=== PATIENT | male | born 1965 | race Caucasian/White ===

== ENCOUNTER 2017-03-10 16:54 | Emergency (ER) | payer OTHER ==
[2017-03-10 17:15] VITALS: BP 129/85; PULSE 97; TEMP 98.5; BMI 22.1
--- NOTE | 2017-03-10 17:15 | PDOC ---
History of Present Illness - General Chief Complaint: Alcohol intoxication Stated Complaint: INTOX Time Seen by Provider: 03/10/17 17:09 History Source: Patient Exam Limitations: No Limitations - History of Present Illness Initial Comments: CHIEF COMPLAINT: 51 y/o afebrile male here for detox. HISTORY OF PRESENT ILLNESS: The patient admits he has been drinking alcohol every day for the past 38 years. He has drank 60oz of beer and 1/2 pint of vodka today. He has been through detox in the past and relapsed. He has no complaints today except he is hungry and would like to go to detox. Vital signs on arrival are notable for pulse of 97. REVIEW OF SYSTEMS: GENERAL/CONSTITUTIONAL: No fever/chills. No weakness. No weight change. HEAD, EYES, EARS, NOSE AND THROAT: No change in vision. No ear pain or discharge. No sore throat. CARDIOVASCULAR: No chest pain or shortness of breath. RESPIRATORY: No cough, wheezing, or hemoptysis. GASTROINTESTINAL: No abd pain, nausea, vomiting, diarrhea. GENITOURINARY: No dysuria, frequency, or change in urination. MUSCULOSKELETAL: No joint or muscle swelling or pain. No neck or back pain. SKIN: No rash or easy bruising. NEUROLOGIC: No headache, vertigo, loss of consciousness, or loss of sensation. PHYSICAL EXAM: GENERAL: The patient is awake, alert, and fully oriented, in no acute distress. He is in NAD and ambulatory. He smells of alcohol. HEAD: Normal with no signs of trauma. ENT: Pupils equal, round and reactive to light, extraocular movements intact, sclera anicteric, conjunctiva clear. Neck supple. LUNGS: Clear to auscultation bilaterally. Normal excursion. No respiratory distress or use of accessory muscles. CV: RRR, S1/S2, no MRG. Cap refill < 2 sec. ABDOMEN: Soft, non-distended, non-tender even to deep palpation, no hepatomegaly or splenomegaly, no masses. EXTREMITIES: Normal range of motion, no edema. NEUROLOGICAL: Normal speech, normal gait. CN II-XII grossly intact. PSYCH: Normal mood, normal affect. SKIN: Warm, dry, normal turgor, no rashes or lesions noted. Past History - Past Medical History Allergies/Adverse Reactions: Allergies Allergy/AdvReac Type Severity Reaction Status Date / Time No Known Allergies Allergy Verified 03/10/17 17:06 Other medical history: etoh daily "as much as I can get" - Psycho/Social/Smoking Cessation Hx Anxiety: No Suicidal Ideation: No Smoking History: Unknown if ever smoked Have you smoked in the past 12 months: No Information on smoking cessation initiated: No Hx Alcohol Use: No Drug/Substance Use Hx: No Substance Use Type: None *Physical Exam - Vital Signs Last Vital Signs Temp Pulse Resp BP Pulse Ox 98.5 F 97 H 18 129/85 100 03/10/17 16:55 03/10/17 16:55 03/10/17 16:55 03/10/17 16:55 03/10/17 16:55 Medical Decision Making - Medical Decision Making A/P: 51 y/o intoxicated male here for detox. The patient has no complaints. Explained to him that [facility] is no longer taking patients. provided him with a food tray and the list of places in the area that are offering detox. Instructed him to return to the ER with any concerning symptoms. The patient verbalizes understanding of all instructions, has no further questions and is awaiting discharge. *DC/Admit/Observation/Transfer Diagnosis at time of Disposition: Alcohol abuse Alcohol intoxication Qualifiers: Complication of substance-induced condition: uncomplicated Qualified Code(s): F10.920 - Alcohol use, unspecified with intoxication, uncomplicated - Discharge Dispostion Disposition: HOME Condition at time of disposition: Good - Patient Instructions Printed Discharge Instructions: DI for Alcohol Abuse Additional Instructions: Discharge Instructions: -A list of detox facilities have been included in your discharge paperwork. -Please return to the ER if you develop any concerning symptoms
== END 2017-03-10 17:45 | disposition home or self-care (01) ==
LOC: JER 16:54
DX: F10.920 Alcohol use, unspecified with intoxication, uncomplicated (principal)
CPT/HCPCS: 99282-25

== ENCOUNTER 2017-04-22 14:07 | Inpatient (IN) | payer OTHER ==
[2017-04-22 16:00] VITALS: BMI 22.8
--- NOTE | 2017-04-22 17:36 | HP ---
CIWA Score - CIWA Score Nausea/Vomitin-Mild Nausea/No Vomiting Muscle Tremors: 4-Moderate,w/Arms Extend Anxiety: 3 Agitation: 3 Paroxysmal Sweats: 1-Minimal Palms Moist Orientation: 2-Disoriented Date<2 days Tacttile Disturbances: 0-None Auditory Disturbances: 0-None Visual Disturbances: 0-None Headache: 0-None Present CIWA-Ar Total Score: 14 Admission ROS BHS - HPI Chief Complaint: withdrawal sx Allergies/Adverse Reactions: Allergies Allergy/AdvReac Type Severity Reaction Status Date / Time No Known Allergies Allergy Verified 04/22/17 17:35 History of Present Illness: 51 years old male with long history of alcohol nicotine dependence, denies medical issue has depression is admitted to detox Exam Limitations: No Limitations - Ebola screening Have you traveled outside of the country in the last 21 days: No Have you had contact with anyone from an Ebola affected area: No Have you been sick,other than usual withdrawal symptoms: No Do you have a fever: No - Review of Systems Constitutional: Changes in sleep, Weight Stable EENT: reports: Dental Problems (multiple teeth missing), Other (glaucoma both eyes x 10 years, no treatment) Respiratory: reports: No Symptoms reported Cardiac: reports: No Symptoms Reported GI: reports: Nausea, Poor Fluid Intake, Abdominal cramping : reports: No Symptoms Reported Musculoskeletal: reports: No Symptoms Reported Integumentary: reports: No Symptoms Reported Neuro: reports: Seizure (last episode 2011 no treatment), Tremors Endocrine: reports: No Symptoms Reported Hematology: reports: No Symptoms Reported Psychiatric: reports: Judgement Intact, Depressed Other Systems: Reviewed and Negative Patient History - Patient Medical History Hx Anemia: No Hx Asthma: No Hx Chronic Obstructive Pulmonary Disease (COPD): No Hx Cancer: No Hx Cardiac Disorders: No Hx Congestive Heart Failure: No Hx Hypertension: No Hx Hypercholesterolemia: No Hx Pacemaker: No HX Cerebrovascular Accident: No Hx Seizures: Yes (alcohol withdrawal related) Hx Dementia: No Hx Diabetes: No Hx Gastrointestinal Disorders: No Hx Liver Disease: No Hx Genitourinary Disorders: No Hx Sexually Transmitted Disorders: No Hx Renal Disease (ESRD): No Hx Thyroid Disease: No Hx Human Immunodeficiency Virus (HIV): No Hx Hepatitis C: No Hx Depression: Yes Hx Suicide Attempt: No Hx Bipolar Disorder: No Hx Schizophrenia: No - Patient Surgical History Past Surgical History: Yes Hx Neurologic Surgery: No Hx Cataract Extraction: No Hx Cardiac Surgery: No Hx Lung Surgery: No Hx Breast Surgery: No Hx Breast Biopsy: No Hx Abdominal Surgery: No Hx Appendectomy: Yes (age 14) Hx Cholecystectomy: No Hx Genitourinary Surgery: No Hx Orthopedic Surgery: No Anesthesia Reaction: No - PPD History Previous Implant?: Yes Documented Results: Negative w/o proof Implanted On Prior R Admission?: No PPD to be Administered?: Yes - Smoking Cessation Smoking history: Current every day smoker Have you smoked in the past 12 months: Yes Aproximately how many cigarettes per day: 3 Cigars Per Day: 0 Hx Chewing Tobacco Use: No Initiated information on smoking cessation: Yes 'Breaking Loose' booklet given: 04/22/17 - Substance & Tx. History Hx Alcohol Use: Yes Hx Substance Use: No Substance Use Type: Alcohol Hx Substance Use Treatment: Yes (02/2017 [facility]) - Substances Abused Alcohol Amount used: ariadna jaquez Age of first use: 13 Date of Last Use: 04/22/17 Family Disease History - Family Disease History Family History: Unremarkable Admission Physical Exam [facility] - Vital Signs Vital Signs: Vital Signs - 24 hr 04/22/17 15:58 Temperature 97 F L Pulse Rate 101 H Respiratory 20 Rate Blood Pressure 135/81 - Physical General Appearance: Yes: Appropriately Dressed, Mild Distress, Alcohol on Breath , Tremorous, Irritable, Sweating, Anxious HEENTM: Yes: Hearing grossly Normal, Normal ENT Inspection, Normocephalic, Normal Voice, Other (glaucoma both eyes x 10 years no treatment) Respiratory: Yes: Chest Non-Tender, Lungs Clear, Normal Breath Sounds, No Respiratory Distress, No Accessory Muscle Use Neck: Yes: Supple, Trachea in good position Breast: Yes: Breasts Symetrical Cardiology: Yes: Regular Rhythm, S1, S2, Tachycardia Abdominal: Yes: Non Tender, Soft Genitourinary: Yes: Within Normal Limits Back: Yes: Normal Inspection Musculoskeletal: Yes: full range of Motion, Gait Steady Extremities: Yes: Normal Range of Motion, Non-Tender, Tremors Neurological: Yes: Alert, Motor Strength 5/5, Normal Response, Depressed Affect Integumentary: Yes: Warm Lymphatic: Yes: Within Normal Limits - Diagnostic (1) Alcohol dependence with uncomplicated withdrawal Current Visit: Yes Status: Acute (2) Glaucoma Current Visit: Yes Status: Chronic Qualifiers: Glaucoma type: unspecified Laterality: bilateral Qualified Code( s): H40.9 - Unspecified glaucoma (3) Depression (emotion) Current Visit: Yes Status: Suspected Qualifiers: Depression Type: dysthymia Qualified Code(s): F34.1 - Dysthymic disorder (4) Nicotine dependence Current Visit: Yes Status: Acute Qualifiers: Nicotine product type: cigarettes Substance use status: in withdrawal Qualified Code(s): F17.213 - Nicotine dependence, cigarettes, with withdrawal Cleared for Admission [facility] - Detox or Rehab [facility] Level of Care: Medically Managed Detox Regimen/Protocol: Librium [facility] Breath Alcohol Content Breath Alcohol Content: 0.202 Urine Drug Screen - Results Drug Screen Negative: Yes
[2017-04-22] MEDS ORDERED: MAG HYDROX/AL HYDROX/SIMETH 30 ML UNIT-DOSE CUP PO PRN (17:45)
[2017-04-22] MEDS ORDERED: NICOTINE POLACRILEX 2 MG GUM BC PRN (17:45)
[2017-04-22] MEDS ORDERED: LOPERAMIDE HCL 2 MG CAPSULE PO PRN (17:45)
[2017-04-22] MEDS ORDERED: MENTHOL/PHENOL 1 EACH UD MM PRN (17:45)
[2017-04-22] MEDS ORDERED: guaiFENesin/D-METHORPHAN HB 10 ML UNIT-DOSE CUPS PO PRN (17:45)
[2017-04-22] MEDS ORDERED: MAGNESIUM HYDROX 2400MG/30ML ORAL SUSPENSION 30 ML CUP PO PRN (17:45)
[2017-04-22] MEDS ORDERED: ACETAMINOPHEN 325 MG TABLET (FP) PO PRN (17:45)
[2017-04-22] MEDS ORDERED: P-EPHED 60MG/TRIPROLIDI 2.5MG TABLET PO PRN (17:45)
[2017-04-22] MEDS ORDERED: chlordiazePOXIDE HCL 25 MG CAPSULE PO PRN (17:45)
[2017-04-22] MEDS ORDERED: hydrOXYzine PAMOATE 50 MG CAPSULE (FP) PO PRN (17:45)
[2017-04-22] MEDS ORDERED: IBUPROFEN 400 MG TABLET (FP) PO PRN (17:45)
[2017-04-22] MEDS ORDERED: MAGNESIUM CITRATE 300 ML BOTTLE PO PRN (17:45)
[2017-04-22] MEDS: chlordiazePOXIDE HCL 25 MG CAPSULE PO SCH (22:38)
[2017-04-22] MEDS: THIAMINE HCL 100 MG TABLET (FP) PO SCH (22:39)
[2017-04-23 00:07] LABS: URINE APPEARANCE CLEAR; URINE BILIRUBIN NEGATIVE (NEGATIVE); URINE BLOOD NEGATIVE (NEGATIVE); URINE COLOR STRAW; URINE GLUCOSE (UA) NEGATIVE (NEGATIVE); URINE KETONE NEGATIVE (NEGATIVE); URINE LEUK ESTERASE NEGATIVE (NEGATIVE); URINE NITRITE NEGATIVE (NEGATIVE); URINE PROTEIN NEGATIVE (NEGATIVE); URINE UROBILINOGEN NEGATIVE mg/dL (0.2-1.0)
[2017-04-23] MEDS: chlordiazePOXIDE HCL 25 MG CAPSULE PO SCH ×4 (06:27→22:30)
[2017-04-23 10:24] LABS: MCH 31.3 pg (25.7-33.7); MCHC 32.8 g/dl (32.0-35.9); MEAN CELL VOLUME 95.5 fl (80-96); MEAN PLT VOLUME 8.6 fl (7.5-11.1); PLATELET COUNT 117 K/MM3 (134-434); RDW 14.5 % (11.9-15.9); WHITE BLOOD COUNT 4.8 K/mm3 (4.0-10.0)
--- NOTE | 2017-04-23 10:31 | EKG ---
Test Reason : Blood Pressure : / mmHG Vent. Rate : 090 BPM Atrial Rate : 090 BPM P-R Int : 158 ms QRS Dur : 102 ms QT Int : 370 ms P-R-T Axes : 060 003 054 degrees QTc Int : 452 ms NORMAL SINUS RHYTHM POSSIBLE LEFT ATRIAL ENLARGEMENT INCOMPLETE RIGHT BUNDLE BRANCH BLOCK LEFT VENTRICULAR HYPERTROPHY CANNOT RULE OUT SEPTAL INFARCT , AGE UNDETERMINED ABNORMAL ECG NO PREVIOUS ECGS AVAILABLE Confirmed by JOHN PAUL TAVERAS, MARILEE ([id number]) on 04/23/2017 10:31:12 AM Referred By: Darius Gonzales Confirmed By:MARILEE COKER MD
[2017-04-23 10:37] LABS: ALBUMIN 3.7 g/dl (3.4-5.0); ALK PHOS 68 U/L (45-117); ANION GAP 7 (8-16); BILIRUBIN,TOTAL 0.6 mg/dL (0.2-1.0); CALCIUM 8.5 mg/dL (8.5-10.1); CO2 31 mmol/L (21-32); CREATININE 0.6 mg/dL (0.7-1.3); GLUCOSE,RANDOM 89 mg/dL (74-106); SGOT/AST 96 U/L (15-37); SGPT/ALT 82 U/L (12-78); TOT PROT 7.1 g/dl (6.4-8.2)
[2017-04-23] MEDS: PRENATAL VITAMINS W/ FOLIC ACID TABLET (FP) PO SCH (10:42)
[2017-04-23] MEDS: NICOTINE 14 MG/24 HOURS TOPICAL PATCH TD SCH (10:43)
[2017-04-23] MEDS ORDERED: ONDANSETRON *ODT* 4 MG TABLET SL PRN (10:47)
--- NOTE | 2017-04-23 12:07 | PN ---
[facility] CIWA - CIWA Score Nausea/Vomitin (N/V/D) Muscle Tremors: 5 Anxiety: 4-Mod. Anxious/Guarded Agitation: 3 Paroxysmal Sweats: 2 Orientation: 0-Oriented Tacttile Disturbances: 3-Moderate Itch/Numb/Burn Auditory Disturbances: 0-None Visual Disturbances: 0-None Headache: 0-None Present CIWA-Ar Total Score: 22 BHS Progress Note (SOAP) Subjective: ANXIETY, SEVERE TREMORS, UNSTEADY GAIT, DIAPHORESIS, NAUSEA, VOMITING,DIARRHEA, INTERMITTENT SLEEP. Objective: 04/23/17 12:06 Vital Signs Temperature 97.1 F L 04/23/17 06:22 Pulse Rate 76 04/23/17 06:22 Respiratory Rate 16 04/23/17 06:22 Blood Pressure 123/80 04/23/17 06:22 O2 Sat by Pulse Oximetry (%) Laboratory Last Values WBC 4.8 K/mm3 (4.0-10.0) 04/23/17 07:00 RBC 4.41 M/mm3 (4.00-5.60) 04/23/17 07:00 Hgb 13.8 GM/dL (11.7-16.9) 04/23/17 07:00 Hct 42.1 % (35.4-49) 04/23/17 07:00 MCV 95.5 fl (80-96) 04/23/17 07:00 MCH 31.3 pg (25.7-33.7) 04/23/17 07:00 MCHC 32.8 g/dl (32.0-35.9) 04/23/17 07:00 RDW 14.5 % (11.9-15.9) 04/23/17 07:00 Plt Count 117 K/MM3 (134-434) L 04/23/17 07:00 MPV 8.6 fl (7.5-11.1) 04/23/17 07:00 Sodium 145 mmol/L (136-145) 04/23/17 07:00 Potassium 3.9 mmol/L (3.5-5.1) 04/23/17 07:00 Chloride 107 mmol/L (98-107) 04/23/17 07:00 Carbon Dioxide 31 mmol/L (21-32) 04/23/17 07:00 Anion Gap 7 (8-16) L 04/23/17 07:00 BUN 9 mg/dL (7-18) 04/23/17 07:00 Creatinine 0.6 mg/dL (0.7-1.3) L 04/23/17 07:00 Creat Clearance w eGFR > 60 (>60) 04/23/17 07:00 Random Glucose 89 mg/dL (74-106) 04/23/17 07:00 Calcium 8.5 mg/dL (8.5-10.1) 04/23/17 07:00 Total Bilirubin 0.6 mg/dL (0.2-1.0) 04/23/17 07:00 AST 96 U/L (15-37) H 04/23/17 07:00 ALT 82 U/L (12-78) H 04/23/17 07:00 Alkaline Phosphatase 68 U/L (45-117) 04/23/17 07:00 Total Protein 7.1 g/dl (6.4-8.2) 04/23/17 07:00 Albumin 3.7 g/dl (3.4-5.0) 04/23/17 07:00 Urine Color Straw 04/22/17 23:56 Urine Appearance Clear 04/22/17 23:56 Urine pH 5.0 (5.0-8.0) 04/22/17 23:56 Urine Protein Negative (NEGATIVE) 04/22/17 23:56 Urine Glucose (UA) Negative (NEGATIVE) 04/22/17 23:56 Urine Ketones Negative (NEGATIVE) 04/22/17 23:56 Urine Blood Negative (NEGATIVE) 04/22/17 23:56 Urine Nitrite Negative (NEGATIVE) 04/22/17 23:56 Urine Bilirubin Negative (NEGATIVE) 04/22/17 23:56 Urine Urobilinogen Negative mg/dL (0.2-1.0) 04/22/17 23:56 Ur Leukocyte Esterase Negative (NEGATIVE) 04/22/17 23:56 Assessment: 04/23/17 12:06 WITHDRAWAL SX Plan: CONTINUE DETOX/MONITOR PATIENT ADDITIONAL LIBRIUM AT 2 PM TODAY ZOFRAN AND IMODIUM DIRECTED TIGAN INJ IF UNABLE TO TAKE PO ANTI-EMETIC. INCREASE PO FLUIDS TOLERATED.
[2017-04-23 13:36] LABS: HIV 1 & 2 AB NEGATIVE; HIV 1 AGp24 NEGATIVE
[2017-04-23] MEDS ORDERED: chlordiazePOXIDE HCL 25 MG CAPSULE PO ONE ×2 (14:00)
--- NOTE | 2017-04-23 19:07 | CONSULT ---
[facility] Psychiatric Consult - Data Date of interview: 04/23/17 Admission source: [facility] Identifying data: First admission to [facility] for this 51 y/o [place] male seeking detox treatment on for alcohol dependence.Patient is ,a father of two,domiciled and employed. Substance Abuse History: Discussed with patient in this interview.Mr Romeo confirms this report. Smoking Cessation. Smoking history: Current every day smoker. Have you smoked in the past 12 months: Yes. Aproximately how many cigarettes per day: 3. Cigars Per Day: 0. Hx Chewing Tobacco Use: No. Initiated information on smoking cessation: Yes. 'Breaking Loose' booklet given : 04/22/17. - Substance & Tx. History. Hx Alcohol Use: Yes. Hx Substance Use : No. Substance Use Type: Alcohol. Hx Substance Use Treatment: Yes (02/2017 [facility]). - Substances Abused. Alcohol. Amount used: quart volka. Age of first use: 13. Date of Last Use: 04/22/17 Medical History: Remarkable for hypertension,glaucoma and a history of withdrawal seizures. Psychiatric History: Patient denies. Physical/Sexual Abuse/Trauma History: Patient denies. Additional Comment: Drug Screen is negative. Mental Status Exam - Mental Status Exam Alert and Oriented to: Time, Place, Person Cognitive Function: Good Patient Appearance: Well Groomed Mood: Hopeful, Euthymic Affect: Appropriate, Normal Range Patient Behavior: Fatigued, Cooperative Speech Pattern: Clear Voice Loudness: Normal Thought Process: Intact, Goal Oriented Thought Disorder: Not Present Hallucinations: Denies Suicidal Ideation: Denies Homicidal Ideation: Denies Insight/Judgement: Poor Sleep: Well Appetite: Good Muscle strength/Tone: Normal Gait/Station: Normal Psychiatric Findings - Problem List ([place] 1, 2,3) (1) Alcohol dependence with uncomplicated withdrawal Current Visit: Yes Status: Acute (2) Nicotine dependence Current Visit: Yes Status: Acute Qualifiers: Nicotine product type: cigarettes Substance use status: in withdrawal Qualified Code(s): F17.213 - Nicotine dependence, cigarettes, with withdrawal (3) Glaucoma Current Visit: Yes Status: Chronic Qualifiers: Glaucoma type: unspecified Laterality: bilateral Qualified Code( s): H40.9 - Unspecified glaucoma - Initial Treatment Plan Initial Treatment Plan: Psychoeducation.Detoxification.Observation.
[2017-04-23] MEDS: diphenhydrAMINE HCL 50 MG CAPSULE PO PRN (22:30)
[2017-04-23] MEDS: THIAMINE HCL 100 MG TABLET (FP) PO SCH (22:30)
[2017-04-23] MEDS ORDERED: cloNIDine HCL 0.1 MG TABLET PO ONE (23:28)
[2017-04-24] MEDS: chlordiazePOXIDE HCL 25 MG CAPSULE PO SCH ×3 (05:37→17:51)
[2017-04-24] MEDS: PRENATAL VITAMINS W/ FOLIC ACID TABLET (FP) PO SCH (10:50)
[2017-04-24] MEDS: NICOTINE 14 MG/24 HOURS TOPICAL PATCH TD SCH (10:51)
--- NOTE | 2017-04-24 19:30 | PN ---
[facility] CIWA - CIWA Score Nausea/Vomitin Muscle Tremors: 4-Moderate,w/Arms Extend Anxiety: 3 Agitation: 0-Normal Activity Paroxysmal Sweats: No Perspiration Orientation: 0-Oriented Tacttile Disturbances: 2-Mild Itch/Numbness/Burn Auditory Disturbances: 0-None Visual Disturbances: 3-Moderate Sensitivity Headache: 0-None Present CIWA-Ar Total Score: 17 BHS Progress Note (SOAP) Subjective: Vomiting, Stomach Cramping, Tremors, Diarrhea, Interrupted Sleep. Objective: PT. A & O X 3, OBSERVED AMBULATING ON UNIT. NO ACUTE DISTRESS. PT. DENIES CHEST PAIN. 04/24/17 19:27 Vital Signs Temperature 98.6 F 04/24/17 18:49 Pulse Rate 71 04/24/17 18:49 Respiratory Rate 18 04/24/17 18:49 Blood Pressure 128/87 04/24/17 18:49 O2 Sat by Pulse Oximetry (%) Laboratory Tests 04/22/17 04/23/17 04/23/17 23:56 07:00 07:00 WBC 4.8 RBC 4.41 Hgb 13.8 Hct 42.1 MCV 95.5 MCH 31.3 MCHC 32.8 RDW 14.5 Plt Count 117 L MPV 8.6 Sodium 145 Potassium 3.9 Chloride 107 Carbon Dioxide 31 Anion Gap 7 L BUN 9 Creatinine 0.6 L Creat Clearance w eGFR > 60 Random Glucose 89 Calcium 8.5 Total Bilirubin 0.6 AST 96 H ALT 82 H Alkaline Phosphatase 68 Total Protein 7.1 Albumin 3.7 Urine Color Straw Urine Appearance Clear Urine pH 5.0 Ur Specific [place] <= 1.005 Urine Protein Negative Urine Glucose (UA) Negative Urine Ketones Negative Urine Blood Negative Urine Nitrite Negative Urine Bilirubin Negative Urine Urobilinogen Negative Ur Leukocyte Esterase Negative RPR Titer HIV 1&2 Antibody Screen HIV P24 Antigen 04/23/17 04/23/17 07:00 07:00 WBC RBC Hgb Hct MCV MCH MCHC RDW Plt Count MPV Sodium Potassium Chloride Carbon Dioxide Anion Gap BUN Creatinine Creat Clearance w eGFR Random Glucose Calcium Total Bilirubin AST ALT Alkaline Phosphatase Total Protein Albumin Urine Color Urine Appearance Urine pH Ur Specific [place] Urine Protein Urine Glucose (UA) Urine Ketones Urine Blood Urine Nitrite Urine Bilirubin Urine Urobilinogen Ur Leukocyte Esterase RPR Titer Nonreactive HIV 1&2 Antibody Screen Negative HIV P24 Antigen Negative LABS NOTED. Assessment: 04/24/17 19:27 WITHDRAWAL SYMPTOMS. Plan: CONTINUE DETOX. REPEAT AST ON 04/25/2017 FOR ELEVATED ADMISSION LEVEL.
[2017-04-24] MEDS: THIAMINE HCL 100 MG TABLET (FP) PO SCH (22:27)
[2017-04-24] MEDS: chlordiazePOXIDE 5 MG CAPSULE PO SCH (22:27)
[2017-04-25] MEDS: chlordiazePOXIDE 5 MG CAPSULE PO SCH ×3 (05:26→16:59)
[2017-04-25] MEDS: PRENATAL VITAMINS W/ FOLIC ACID TABLET (FP) PO SCH (10:31)
[2017-04-25] MEDS: NICOTINE 14 MG/24 HOURS TOPICAL PATCH TD SCH (10:32)
--- NOTE | 2017-04-25 15:21 | PN ---
S Progress Note (SOAP) Subjective: Tremor, diarrhea, chills, interrupted sleep, anxious Objective: 04/25/17 15:19 Last Vital Signs Temp Pulse Resp BP Pulse Ox 98.6 F 111 H 20 115/83 04/25/17 13:42 04/25/17 13:42 04/25/17 13:42 04/25/17 13:42 Laboratory Tests 04/22/17 04/23/17 04/23/17 23:56 07:00 07:00 WBC 4.8 RBC 4.41 Hgb 13.8 Hct 42.1 MCV 95.5 MCH 31.3 MCHC 32.8 RDW 14.5 Plt Count 117 L MPV 8.6 Sodium 145 Potassium 3.9 Chloride 107 Carbon Dioxide 31 Anion Gap 7 L BUN 9 Creatinine 0.6 L Creat Clearance w eGFR > 60 Random Glucose 89 Calcium 8.5 Total Bilirubin 0.6 AST 96 H ALT 82 H Alkaline Phosphatase 68 Total Protein 7.1 Albumin 3.7 Urine Color Straw Urine Appearance Clear Urine pH 5.0 Ur Specific [place] <= 1.005 Urine Protein Negative Urine Glucose (UA) Negative Urine Ketones Negative Urine Blood Negative Urine Nitrite Negative Urine Bilirubin Negative Urine Urobilinogen Negative Ur Leukocyte Esterase Negative RPR Titer HIV 1&2 Antibody Screen HIV P24 Antigen 04/23/17 04/23/17 04/25/17 07:00 07:00 07:45 WBC RBC Hgb Hct MCV MCH MCHC RDW Plt Count MPV Sodium Potassium Chloride Carbon Dioxide Anion Gap BUN Creatinine Creat Clearance w eGFR Random Glucose Calcium Total Bilirubin AST 252 H D ALT Alkaline Phosphatase Total Protein Albumin Urine Color Urine Appearance Urine pH Ur Specific [place] Urine Protein Urine Glucose (UA) Urine Ketones Urine Blood Urine Nitrite Urine Bilirubin Urine Urobilinogen Ur Leukocyte Esterase RPR Titer Nonreactive HIV 1&2 Antibody Screen Negative HIV P24 Antigen Negative Labs noted Assessment: 04/25/17 15:20 Withdrawal symptoms Plan: Continue detox
[2017-04-25] MEDS: THIAMINE HCL 100 MG TABLET (FP) PO SCH (22:23)
[2017-04-25] MEDS: chlordiazePOXIDE HCL 10 MG CAPSULE PO SCH (22:23)
[2017-04-25] MEDS: diphenhydrAMINE HCL 50 MG CAPSULE PO PRN (22:23)
[2017-04-26] MEDS: chlordiazePOXIDE HCL 10 MG CAPSULE PO SCH (05:38)
[2017-04-26 09:31] VITALS: BP 134/97; PULSE 99; TEMP 97.9
[2017-04-26] MEDS: NICOTINE 14 MG/24 HOURS TOPICAL PATCH TD SCH (10:14)
[2017-04-26] MEDS: PRENATAL VITAMINS W/ FOLIC ACID TABLET (FP) PO SCH (10:14)
--- NOTE | 2017-04-26 16:27 | DS ---
[facility] Detox Discharge Summary Admission Date: 04/22/17 Discharge Date: 04/26/17 - History Present History: Alcohol Dependence Additional Comments: PATIENT TO RETURN TO [facility] IN [place], [place] FOR AFTERCARE. PATIENT ADVISED TO FOLLOW-UP THERE FOR AFTERCARE PER DISCHARGE ARRANGEMENT. PATIENT WAS DISCHARGED FROM UNIT IN STABLE MEDICAL CONDITION. Pertinent Past History: History of Seizures (ETOH-Related), Glaucoma, Depression. - Physical Exam Results Vital Signs: Vital Signs Temperature 97.9 F 04/26/17 09:31 Pulse Rate 99 H 04/26/17 09:31 Respiratory Rate 04/26/17 09:31 Blood Pressure 134/97 04/26/17 09:31 O2 Sat by Pulse Oximetry (%) Pertinent Admission Physical Exam Findings: WITHDRAWAL SYMPTOMS. Laboratory Tests 04/22/17 04/23/17 04/23/17 23:56 07:00 07:00 WBC 4.8 RBC 4.41 Hgb 13.8 Hct 42.1 MCV 95.5 MCH 31.3 MCHC 32.8 RDW 14.5 Plt Count 117 L MPV 8.6 Sodium 145 Potassium 3.9 Chloride 107 Carbon Dioxide 31 Anion Gap 7 L BUN 9 Creatinine 0.6 L Creat Clearance w eGFR > 60 Random Glucose 89 Calcium 8.5 Total Bilirubin 0.6 AST 96 H ALT 82 H Alkaline Phosphatase 68 Total Protein 7.1 Albumin 3.7 Urine Color Straw Urine Appearance Clear Urine pH 5.0 Ur Specific [place] <= 1.005 Urine Protein Negative Urine Glucose (UA) Negative Urine Ketones Negative Urine Blood Negative Urine Nitrite Negative Urine Bilirubin Negative Urine Urobilinogen Negative Ur Leukocyte Esterase Negative RPR Titer HIV 1&2 Antibody Screen HIV P24 Antigen 04/23/17 04/23/17 04/25/17 07:00 07:00 07:45 WBC RBC Hgb Hct MCV MCH MCHC RDW Plt Count MPV Sodium Potassium Chloride Carbon Dioxide Anion Gap BUN Creatinine Creat Clearance w eGFR Random Glucose Calcium Total Bilirubin AST 252 H D ALT Alkaline Phosphatase Total Protein Albumin Urine Color Urine Appearance Urine pH Ur Specific [place] Urine Protein Urine Glucose (UA) Urine Ketones Urine Blood Urine Nitrite Urine Bilirubin Urine Urobilinogen Ur Leukocyte Esterase RPR Titer Nonreactive HIV 1&2 Antibody Screen Negative HIV P24 Antigen Negative LABS NOTED. - Treatment Hospital Course: Detox Protocol Followed, Detoxed Safely, Responded well, Discharged Condition Good Patient has Accepted a Rehab Referral to: PATIENT GOING TO [facility] ([place], [place]). - Medication Discharge Medications: Ambulatory Orders NK [No Known Home Medication] 03/10/17 - Diagnosis (1) Alcohol dependence with uncomplicated withdrawal Status: Acute (2) Nicotine dependence Status: Chronic Qualifiers: Nicotine product type: cigarettes Substance use status: in withdrawal Qualified Code(s): F17.213 - Nicotine dependence, cigarettes, with withdrawal (3) Glaucoma Status: Chronic Qualifiers: Glaucoma type: unspecified Laterality: bilateral Qualified Code( s): H40.9 - Unspecified glaucoma (4) Depression (emotion) Status: Suspected Qualifiers: Depression Type: dysthymia Qualified Code(s): F34.1 - Dysthymic disorder - AMA Did Patient Leave Against Medical Advice: No
== END 2017-04-26 10:49 | disposition home or self-care (01) | DRG 775 ==
LOC: YASAS 14:07 → Y3N 17:54
PROVIDERS: ADMIT Internal Medicine; ATTEND Internal Medicine
PROC: HZ2ZZZZ Detoxification Services for Substance Abuse Treatment (ICD-10-PCS; principal; 2017-04-22)
DX: F10.230 Alcohol dependence with withdrawal, uncomplicated (principal); F10.220 Alcohol dependence with intoxication, uncomplicated; F17.213 Nicotine dependence, cigarettes, with withdrawal; F34.1 Dysthymic disorder; H40.9 Unspecified glaucoma; R00.0 Tachycardia, unspecified; Z86.69 Personal history of other diseases of the nervous system and sense organs
CPT/HCPCS: 36415; 80053; 81003; 84450; 85027; 86593; 87389; 93005; 93010

== ENCOUNTER 2017-08-04 20:45 | Inpatient (IN) | payer OTHER ==
[2017-08-04 21:57] VITALS: BMI 23.3
--- NOTE | 2017-08-04 22:24 | HP ---
CIWA Score - CIWA Score Nausea/Vomitin-Mild Nausea/No Vomiting Muscle Tremors: 4-Moderate,w/Arms Extend Anxiety: 4-Mod. Anxious/Guarded Agitation: 4-Moderately Restless Paroxysmal Sweats: 1-Minimal Palms Moist Orientation: 1-Uncertain about Date Tacttile Disturbances: 0-None Auditory Disturbances: 0-None Visual Disturbances: 0-None Headache: 0-None Present CIWA-Ar Total Score: 15 Admission ROS BHS - HPI Chief Complaint: withdrawal sx Allergies/Adverse Reactions: Allergies Allergy/AdvReac Type Severity Reaction Status Date / Time No Known Allergies Allergy Verified 07/10/17 18:26 History of Present Illness: 51 years old male with long history of alcohol nicotine dependence, has alcohol withdrawal related seizure, last episode unknown is admitted to detox Exam Limitations: No Limitations - Ebola screening Have you traveled outside of the country in the last 21 days: No Have you had contact with anyone from an Ebola affected area: No Have you been sick,other than usual withdrawal symptoms: No Do you have a fever: No - Review of Systems Constitutional: Chills, Weight Stable EENT: reports: Blurred Vision (eye glasses) Respiratory: reports: Cough Cardiac: reports: No Symptoms Reported GI: reports: Nausea, Poor Fluid Intake, Abdominal cramping : reports: No Symptoms Reported Musculoskeletal: reports: No Symptoms Reported Integumentary: reports: No Symptoms Reported Neuro: reports: Seizure (2011), Tremors Endocrine: reports: No Symptoms Reported Hematology: reports: No Symptoms Reported Psychiatric: reports: Judgement Intact, Mood/Affect Appropiate, Orientated x3 Other Systems: Reviewed and Negative Patient History - Patient Medical History Hx Anemia: No Hx Asthma: No Hx Chronic Obstructive Pulmonary Disease (COPD): No Hx Cancer: No Hx Cardiac Disorders: No Hx Congestive Heart Failure: No Hx Hypertension: No Hx Hypercholesterolemia: No Hx Pacemaker: No HX Cerebrovascular Accident: No Hx Seizures: Yes Hx Dementia: No Hx Diabetes: No Hx Gastrointestinal Disorders: No Hx Liver Disease: No Hx Genitourinary Disorders: No Hx Sexually Transmitted Disorders: No Hx Renal Disease (ESRD): No Hx Thyroid Disease: No Hx Human Immunodeficiency Virus (HIV): No Hx Hepatitis C: No Hx Depression: No Hx Suicide Attempt: No Hx Bipolar Disorder: No Hx Schizophrenia: No - Patient Surgical History Past Surgical History: Yes Hx Neurologic Surgery: No Hx Cataract Extraction: No Hx Cardiac Surgery: No Hx Lung Surgery: No Hx Breast Surgery: No Hx Breast Biopsy: No Hx Abdominal Surgery: No Hx Appendectomy: Yes (age 14) Hx Cholecystectomy: No Hx Genitourinary Surgery: No Hx Orthopedic Surgery: No Anesthesia Reaction: No - PPD History Previous Implant?: Yes Documented Results: Negative w/o proof Implanted On Prior [facility] Admission?: Yes Date: 04/24/17 Results: 0 mm PPD to be Administered?: No - Smoking Cessation Smoking history: Current every day smoker Have you smoked in the past 12 months: Yes Aproximately how many cigarettes per day: 3 Cigars Per Day: 0 Hx Chewing Tobacco Use: No Initiated information on smoking cessation: Yes 'Breaking Loose' booklet given: 08/04/17 - Substance & Tx. History Hx Alcohol Use: Yes Hx Substance Use: No Substance Use Type: Alcohol Hx Substance Use Treatment: Yes (07/2017) - Substances Abused etoh Route: Oral Frequency: 3-6 times per week Amount used: 2 pints vodka Age of first use: 13 Date of Last Use: 08/04/17 Family Disease History - Family Disease History Family Disease History: Other: Brother (Alcoholic/ suicidal) Admission Physical Exam BHS - Vital Signs Vital Signs: Vital Signs - 24 hr 08/04/17 21:55 Temperature 96.3 F L Pulse Rate 98 H Respiratory 18 Rate Blood Pressure 133/81 - Physical General Appearance: Yes: Appropriately Dressed, Mild Distress, Alcohol on Breath , Tremorous, Irritable, Sweating, Anxious HEENTM: Yes: Hearing grossly Normal, Normal ENT Inspection, Normocephalic, Normal Voice Respiratory: Yes: Chest Non-Tender, Lungs Clear, Normal Breath Sounds, No Respiratory Distress, No Accessory Muscle Use Neck: Yes: Supple, Trachea in good position Breast: Yes: Breasts Symetrical Cardiology: Yes: Regular Rhythm, S1, S2, Tachycardia Abdominal: Yes: Non Tender, Soft, Increased Bowel Sounds Genitourinary: Yes: Within Normal Limits Back: Yes: Normal Inspection Musculoskeletal: Yes: full range of Motion, Gait Steady Extremities: Yes: Normal Inspection, Normal Range of Motion, Non-Tender, Tremors Neurological: Yes: Alert, Motor Strength 5/5, Normal Mood/Affect, Normal Response Integumentary: Yes: Warm Lymphatic: Yes: Within Normal Limits - Diagnostic (1) Alcohol dependence with uncomplicated withdrawal Current Visit: Yes Status: Acute (2) Glaucoma Current Visit: Yes Status: Chronic Qualifiers: Glaucoma type: unspecified Laterality: bilateral Qualified Code(s): H40.9 - Unspecified glaucoma Comment: no treatment (3) Nicotine dependence Current Visit: Yes Status: Acute Qualifiers: Nicotine product type: cigarettes Substance use status: in withdrawal Qualified Code(s): F17.213 - Nicotine dependence, cigarettes, with withdrawal Cleared for Admission [facility] - Detox or Rehab [facility] Level of Care: Medically Managed Detox Regimen/Protocol: Librium [facility] Breath Alcohol Content Breath Alcohol Content: 0.323 Urine Drug Screen - Results Drug Screen Negative: No Urine Drug Screen Results: BZO-Benzodiazepines
[2017-08-04] MEDS ORDERED: P-EPHED 60MG/TRIPROLIDI 2.5MG TABLET PO PRN (22:38)
[2017-08-04] MEDS ORDERED: ACETAMINOPHEN 325 MG TABLET (FP) PO PRN (22:38)
[2017-08-04] MEDS ORDERED: MAG HYDROX/AL HYDROX/SIMETH 30 ML UNIT-DOSE CUP PO PRN (22:38)
[2017-08-04] MEDS ORDERED: IBUPROFEN 400 MG TABLET (FP) PO PRN (22:38)
[2017-08-04] MEDS ORDERED: MENTHOL/PHENOL 1 EACH UD MM PRN (22:38)
[2017-08-04] MEDS ORDERED: chlordiazePOXIDE HCL 25 MG CAPSULE PO PRN (22:38)
[2017-08-04] MEDS ORDERED: MAGNESIUM HYDROX 2400MG/30ML ORAL SUSPENSION 30 ML CUP PO PRN (22:38)
[2017-08-04] MEDS ORDERED: MAGNESIUM CITRATE 300 ML BOTTLE PO PRN (22:38)
[2017-08-04] MEDS ORDERED: LOPERAMIDE HCL 2 MG CAPSULE PO PRN (22:38)
[2017-08-04] MEDS ORDERED: NICOTINE POLACRILEX 2 MG GUM BC PRN (22:38)
[2017-08-04] MEDS: chlordiazePOXIDE HCL 25 MG CAPSULE PO SCH (23:38)
[2017-08-05 00:18] LABS: URINE APPEARANCE CLEAR; URINE BILIRUBIN NEGATIVE (NEGATIVE); URINE BLOOD NEGATIVE (NEGATIVE); URINE COLOR LTYELLOW; URINE GLUCOSE (UA) NEGATIVE (NEGATIVE); URINE KETONE NEGATIVE (NEGATIVE); URINE NITRITE NEGATIVE (NEGATIVE); URINE PROTEIN NEGATIVE (NEGATIVE); URINE UROBILINOGEN NEGATIVE mg/dL (0.2-1.0)
[2017-08-05] MEDS: chlordiazePOXIDE HCL 25 MG CAPSULE PO SCH ×4 (05:13→22:33)
[2017-08-05 09:57] LABS: MCH 31.1 pg (25.7-33.7); MEAN CELL VOLUME 94.3 fl (80-96); MEAN PLT VOLUME 8.7 fl (7.5-11.1); PLATELET COUNT 134 K/MM3 (134-434); RDW 14.7 % (11.9-15.9); WHITE BLOOD COUNT 4.9 K/mm3 (4.0-10.0)
[2017-08-05 10:06] LABS: ALBUMIN 3.5 g/dl (3.4-5.0); ANION GAP 9 (8-16); CO2 27 mmol/L (21-32); GLUCOSE,RANDOM 79 mg/dL (74-106)
[2017-08-05 10:12] LABS: ALK PHOS 89 U/L (45-117); BILIRUBIN,TOTAL 0.4 mg/dL (0.2-1.0); CREATININE 0.7 mg/dL (0.7-1.3); SGOT/AST 31 U/L (15-37); SGPT/ALT 33 U/L (12-78); TOT PROT 6.9 g/dl (6.4-8.2)
[2017-08-05] MEDS: PRENATAL VITAMINS W/ FOLIC ACID TABLET (FP) PO SCH (10:29)
[2017-08-05] MEDS: guaiFENesin/D-METHORPHAN HB 10 ML UNIT-DOSE CUPS PO PRN ×2 (10:30→17:28)
[2017-08-05] MEDS: NICOTINE 14 MG/24 HOURS TOPICAL PATCH TD SCH (10:31)
[2017-08-05 10:57] LABS: URINE LEUK ESTERASE Negative (NEGATIVE)
--- NOTE | 2017-08-05 11:10 | PN ---
[facility] CIWA - CIWA Score Nausea/Vomitin-No Nausea/No Vomiting Muscle Tremors: 5 Anxiety: 4-Mod. Anxious/Guarded Agitation: 4-Moderately Restless Paroxysmal Sweats: 1-Minimal Palms Moist Orientation: 0-Oriented Tacttile Disturbances: 3-Moderate Itch/Numb/Burn Auditory Disturbances: 0-None Visual Disturbances: 0-None Headache: 0-None Present CIWA-Ar Total Score: 17 S Progress Note (SOAP) Subjective: ANXIETY,TREMORS,SWEATS,FACIAL FLUSHING. C/O COUGH. Objective: 08/05/17 11:09 Vital Signs 08/05/17 08/05/17 08/05/17 03:26 05:57 09:08 Temperature 97.1 F L 97.2 F L Pulse Rate 80 102 H Respiratory 20 18 20 Rate Blood Pressure 129/71 136/80 Laboratory Last Values WBC 4.9 K/mm3 (4.0-10.0) 08/05/17 07:00 RBC 4.24 M/mm3 (4.00-5.60) 08/05/17 07:00 Hgb 13.2 GM/dL (11.7-16.9) 08/05/17 07:00 Hct 40.0 % (35.4-49) 08/05/17 07:00 MCV 94.3 fl (80-96) 08/05/17 07:00 MCH 31.1 pg (25.7-33.7) 08/05/17 07:00 MCHC 33.0 g/dl (32.0-35.9) 08/05/17 07:00 RDW 14.7 % (11.9-15.9) 08/05/17 07:00 Plt Count 134 K/MM3 (134-434) D 08/05/17 07:00 MPV 8.7 fl (7.5-11.1) 08/05/17 07:00 Sodium 143 mmol/L (136-145) 08/05/17 07:00 Potassium 4.0 mmol/L (3.5-5.1) 08/05/17 07:00 Chloride 107 mmol/L (98-107) 08/05/17 07:00 Carbon Dioxide 27 mmol/L (21-32) 08/05/17 07:00 Anion Gap 9 (8-16) 08/05/17 07:00 BUN 9 mg/dL (7-18) 08/05/17 07:00 Creatinine 0.7 mg/dL (0.7-1.3) 08/05/17 07:00 Creat Clearance w eGFR > 60 (>60) 08/05/17 07:00 Random Glucose 79 mg/dL (74-106) 08/05/17 07:00 Calcium 8.0 mg/dL (8.5-10.1) L 08/05/17 07:00 Total Bilirubin 0.4 mg/dL (0.2-1.0) 08/05/17 07:00 AST 31 U/L (15-37) D 08/05/17 07:00 ALT 33 U/L (12-78) 08/05/17 07:00 Alkaline Phosphatase 89 U/L (45-117) 08/05/17 07:00 Total Protein 6.9 g/dl (6.4-8.2) 08/05/17 07:00 Albumin 3.5 g/dl (3.4-5.0) 08/05/17 07:00 Urine Color Ltyellow 08/04/17 23:26 Urine Appearance Clear 08/04/17 23:26 Urine pH 5.0 (5.0-8.0) 08/04/17 23:26 Ur Specific [place] 1.014 (1.001-1.035) 08/04/17 23:26 Urine Protein Negative (NEGATIVE) 08/04/17 23:26 Urine Glucose (UA) Negative (NEGATIVE) 08/04/17 23:26 Urine Ketones Negative (NEGATIVE) 08/04/17 23:26 Urine Blood Negative (NEGATIVE) 08/04/17 23:26 Urine Nitrite Negative (NEGATIVE) 08/04/17 23:26 Urine Bilirubin Negative (NEGATIVE) 08/04/17 23:26 Urine Urobilinogen Negative mg/dL (0.2-1.0) 08/04/17 23:26 Ur Leukocyte Esterase Negative (NEGATIVE) 08/04/17 23:26 Assessment: 08/05/17 11:09 WITHDRAWAL SX Plan: CONTINUE DETOX
[2017-08-05] MEDS ORDERED: PNEUMOC 13-VAL CONJ-DIP CRM/PF 0.5 ML DISP.SYRIN IM ONE (12:00)
[2017-08-05] MEDS ORDERED: FLU VACCINE QUAD 60 MCG/0.5 ML (MDV 17-18) IM ONE (12:00)
[2017-08-05] MEDS ORDERED: PNEUMOCOCCAL 23 VACCINE 0.5 ML VIAL IM ONE (12:00)
[2017-08-05 12:31] LABS: HIV 1 & 2 AB NEGATIVE; HIV 1 AGp24 NEGATIVE
--- NOTE | 2017-08-05 13:08 | EKG ---
Test Reason : Blood Pressure : / mmHG Vent. Rate : 090 BPM Atrial Rate : 090 BPM P-R Int : 144 ms QRS Dur : 092 ms QT Int : 392 ms P-R-T Axes : 057 -03 041 degrees QTc Int : 479 ms NORMAL SINUS RHYTHM POSSIBLE LEFT ATRIAL ENLARGEMENT LEFT VENTRICULAR HYPERTROPHY ABNORMAL ECG WHEN COMPARED WITH ECG OF 10-JUL-2017 20:03, CRITERIA FOR SEPTAL INFARCT ARE NO LONGER PRESENT Confirmed by COURTNEY TAVERAS, KIAN ([id number]) on 08/05/2017 1:07:51 PM Referred By: ANTON RESENDIZ Confirmed By:KIAN VALDEZ MD
[2017-08-05] MEDS: THIAMINE HCL 100 MG TABLET (FP) PO SCH (22:33)
[2017-08-06] MEDS: chlordiazePOXIDE HCL 25 MG CAPSULE PO SCH ×3 (05:22→17:48)
[2017-08-06] MEDS: PRENATAL VITAMINS W/ FOLIC ACID TABLET (FP) PO SCH (10:30)
[2017-08-06] MEDS: NICOTINE 14 MG/24 HOURS TOPICAL PATCH TD SCH (10:30)
--- NOTE | 2017-08-06 11:07 | PN ---
[facility] CIWA - CIWA Score Nausea/Vomitin-No Nausea/No Vomiting Muscle Tremors: 4-Moderate,w/Arms Extend Anxiety: 4-Mod. Anxious/Guarded Agitation: 4-Moderately Restless Paroxysmal Sweats: 1-Minimal Palms Moist Orientation: 0-Oriented Tacttile Disturbances: 3-Moderate Itch/Numb/Burn Auditory Disturbances: 0-None Visual Disturbances: 0-None Headache: 0-None Present CIWA-Ar Total Score: 16 BHS Progress Note (SOAP) Subjective: SLIGHT TO MODERATED TREMORS, ANXIETY, FATIGUE,DECREASED FACIAL FLUSHING. Objective: 08/06/17 11:07 Vital Signs Temperature 99.5 F 08/06/17 10:00 Pulse Rate 113 H 08/06/17 10:00 Respiratory Rate 18 08/06/17 10:00 Blood Pressure 134/92 08/06/17 10:00 O2 Sat by Pulse Oximetry (%) Laboratory Last Values WBC 4.9 K/mm3 (4.0-10.0) 08/05/17 07:00 RBC 4.24 M/mm3 (4.00-5.60) 08/05/17 07:00 Hgb 13.2 GM/dL (11.7-16.9) 08/05/17 07:00 Hct 40.0 % (35.4-49) 08/05/17 07:00 MCV 94.3 fl (80-96) 08/05/17 07:00 MCH 31.1 pg (25.7-33.7) 08/05/17 07:00 MCHC 33.0 g/dl (32.0-35.9) 08/05/17 07:00 RDW 14.7 % (11.9-15.9) 08/05/17 07:00 Plt Count 134 K/MM3 (134-434) D 08/05/17 07:00 MPV 8.7 fl (7.5-11.1) 08/05/17 07:00 Sodium 143 mmol/L (136-145) 08/05/17 07:00 Potassium 4.0 mmol/L (3.5-5.1) 08/05/17 07:00 Chloride 107 mmol/L (98-107) 08/05/17 07:00 Carbon Dioxide 27 mmol/L (21-32) 08/05/17 07:00 Anion Gap 9 (8-16) 08/05/17 07:00 BUN 9 mg/dL (7-18) 08/05/17 07:00 Creatinine 0.7 mg/dL (0.7-1.3) 08/05/17 07:00 Creat Clearance w eGFR > 60 (>60) 08/05/17 07:00 Random Glucose 79 mg/dL (74-106) 08/05/17 07:00 Calcium 8.0 mg/dL (8.5-10.1) L 08/05/17 07:00 Total Bilirubin 0.4 mg/dL (0.2-1.0) 08/05/17 07:00 AST 31 U/L (15-37) D 08/05/17 07:00 ALT 33 U/L (12-78) 08/05/17 07:00 Alkaline Phosphatase 89 U/L (45-117) 08/05/17 07:00 Total Protein 6.9 g/dl (6.4-8.2) 08/05/17 07:00 Albumin 3.5 g/dl (3.4-5.0) 08/05/17 07:00 Urine Color Ltyellow 08/04/17 23:26 Urine Appearance Clear 08/04/17 23:26 Urine pH 5.0 (5.0-8.0) 08/04/17 23:26 Ur Specific [place] 1.014 (1.001-1.035) 08/04/17 23:26 Urine Protein Negative (NEGATIVE) 08/04/17 23:26 Urine Glucose (UA) Negative (NEGATIVE) 08/04/17 23:26 Urine Ketones Negative (NEGATIVE) 08/04/17 23:26 Urine Blood Negative (NEGATIVE) 08/04/17 23:26 Urine Nitrite Negative (NEGATIVE) 08/04/17 23:26 Urine Bilirubin Negative (NEGATIVE) 08/04/17 23:26 Urine Urobilinogen Negative mg/dL (0.2-1.0) 08/04/17 23:26 Ur Leukocyte Esterase Negative (NEGATIVE) 08/04/17 23:26 RPR Titer Nonreactive (NONREACTIVE) 08/05/17 07:00 HIV 1&2 Antibody Screen Negative 08/05/17 07:00 HIV P24 Antigen Negative 08/05/17 07:00 Assessment: 08/06/17 11:07 WITHDRAWAL SX Plan: CONTINUE DETOX
[2017-08-06] MEDS: guaiFENesin/D-METHORPHAN HB 10 ML UNIT-DOSE CUPS PO PRN (17:49)
[2017-08-06] MEDS: THIAMINE HCL 100 MG TABLET (FP) PO SCH (22:20)
[2017-08-06] MEDS: chlordiazePOXIDE 5 MG CAPSULE PO SCH (22:20)
[2017-08-07] MEDS: chlordiazePOXIDE 5 MG CAPSULE PO SCH ×2 (05:58→10:16)
[2017-08-07 09:22] VITALS: BP 124/79; PULSE 92; TEMP 97.9
[2017-08-07] MEDS: PRENATAL VITAMINS W/ FOLIC ACID TABLET (FP) PO SCH (10:16)
[2017-08-07] MEDS: NICOTINE 14 MG/24 HOURS TOPICAL PATCH TD SCH (11:11)
--- NOTE | 2017-08-07 15:51 | DS ---
[facility] Detox Discharge Summary Admission Date: 08/04/17 Discharge Date: 08/07/17 - History Present History: Alcohol Dependence Additional Comments: AT TIME DISCHARGE, PATIENT DENIES ANY CURRENT DETOX SYMPTOMS ARE MINIMAL AND REPORTS THAT HE FEELS WELL OVERALL. PATIENT REPORTS THAT HE IS GOING HOME TO RETURN TO WORK. PATIENT ADVISED TO CONSIDER LOCAL 12-STEP / AA OUTPATIENT SUPPORT GROUP MEETINGS FOR AFTERCARE. PATIENT WAS DISCHARGED FROM DETOX UNIT IN STABLE MEDICAL CONDITION. Pertinent Past History: Glaucoma, Nicotine Dependence. - Physical Exam Results Vital Signs: Vital Signs Temperature 97.9 F 08/07/17 09:21 Pulse Rate 92 H 08/07/17 09:21 Respiratory Rate 20 08/07/17 09:21 Blood Pressure 124/79 08/07/17 09:21 O2 Sat by Pulse Oximetry (%) Pertinent Admission Physical Exam Findings: WITHDRAWAL SYMPTOMS. Laboratory Tests 08/04/17 08/05/17 08/05/17 23:26 07:00 07:00 WBC 4.9 RBC 4.24 Hgb 13.2 Hct 40.0 MCV 94.3 MCH 31.1 MCHC 33.0 RDW 14.7 Plt Count 134 D MPV 8.7 Sodium Potassium Chloride Carbon Dioxide Anion Gap BUN Creatinine Creat Clearance w eGFR Random Glucose Calcium Total Bilirubin AST ALT Alkaline Phosphatase Total Protein Albumin Urine Color Ltyellow Urine Appearance Clear Urine pH 5.0 Ur Specific [place] 1.014 Urine Protein Negative Urine Glucose (UA) Negative Urine Ketones Negative Urine Blood Negative Urine Nitrite Negative Urine Bilirubin Negative Urine Urobilinogen Negative Ur Leukocyte Esterase Negative RPR Titer HIV 1&2 Antibody Screen Negative HIV P24 Antigen Negative 08/05/17 08/05/17 07:00 07:00 WBC RBC Hgb Hct MCV MCH MCHC RDW Plt Count MPV Sodium 143 Potassium 4.0 Chloride 107 Carbon Dioxide 27 Anion Gap 9 BUN 9 Creatinine 0.7 Creat Clearance w eGFR > 60 Random Glucose 79 Calcium 8.0 L Total Bilirubin 0.4 AST 31 D ALT 33 Alkaline Phosphatase 89 Total Protein 6.9 Albumin 3.5 Urine Color Urine Appearance Urine pH Ur Specific [place] Urine Protein Urine Glucose (UA) Urine Ketones Urine Blood Urine Nitrite Urine Bilirubin Urine Urobilinogen Ur Leukocyte Esterase RPR Titer Nonreactive HIV 1&2 Antibody Screen HIV P24 Antigen LABS NOTED. - Treatment Hospital Course: Detox Protocol Followed, Detoxed Safely, Responded well, Discharged Condition Good Patient has Accepted a Rehab Referral to: PT GOING HOME, ADVISED TO CONSIDER LOCAL 12-STEP/AA SUPPORT GROUPS. - Medication Discharge Medications: Ambulatory Orders NK [No Known Home Medication] 03/10/17 - Diagnosis (1) Alcohol dependence with uncomplicated withdrawal Status: Acute (2) Nicotine dependence Status: Acute Qualifiers: Nicotine product type: cigarettes Substance use status: in withdrawal Qualified Code(s): F17.213 - Nicotine dependence, cigarettes, with withdrawal (3) Glaucoma Status: Chronic Qualifiers: Glaucoma type: unspecified Laterality: bilateral Qualified Code(s): H40.9 - Unspecified glaucoma - AMA Did Patient Leave Against Medical Advice: No
[2017-08-07] MEDS ORDERED: chlordiazePOXIDE HCL 10 MG CAPSULE PO SCH (23:00)
== END 2017-08-07 13:28 | disposition home or self-care (01) | DRG 775 ==
LOC: YASAS 20:45 → Y6N 22:01 → Y3N 22:53
PROVIDERS: ADMIT Internal Medicine; ATTEND Internal Medicine
PROC: HZ2ZZZZ Detoxification Services for Substance Abuse Treatment (ICD-10-PCS; principal; 2017-08-04)
DX: F10.230 Alcohol dependence with withdrawal, uncomplicated (principal); F17.213 Nicotine dependence, cigarettes, with withdrawal; H40.9 Unspecified glaucoma; Z86.69 Personal history of other diseases of the nervous system and sense organs
CPT/HCPCS: 36415; 80053; 81003; 85027; 86593; 87389; 90688; 90732; 93005; 93010; G0008; G0009

== ENCOUNTER 2017-09-20 20:17 | Inpatient (IN) | payer OTHER ==
[2017-09-20 21:49] VITALS: BMI 22.8
--- NOTE | 2017-09-20 22:24 | HP ---
CIWA Score - CIWA Score Nausea/Vomitin-Mild Nausea/No Vomiting Muscle Tremors: 4-Moderate,w/Arms Extend Anxiety: 4-Mod. Anxious/Guarded Agitation: 4-Moderately Restless Paroxysmal Sweats: 1-Minimal Palms Moist Orientation: 1-Uncertain about Date Tacttile Disturbances: 1-Very Mild Itch/Numbness Auditory Disturbances: 0-None Visual Disturbances: 0-None Headache: 0-None Present CIWA-Ar Total Score: 16 Admission ROS S - HPI Chief Complaint: withdrawal sx Allergies/Adverse Reactions: Allergies Allergy/AdvReac Type Severity Reaction Status Date / Time No Known Allergies Allergy Verified 09/20/17 22:30 History of Present Illness: 51 years old male with long history of alcohol nicotine dependence has depression and anxiety is admitted to detox Exam Limitations: No Limitations - Ebola screening Have you traveled outside of the country in the last 21 days: No Have you had contact with anyone from an Ebola affected area: No Have you been sick,other than usual withdrawal symptoms: No Do you have a fever: No - Review of Systems Constitutional: Changes in sleep, Weight Stable EENT: reports: Blurred Vision (had glaucoma x 4 years no treatment bilaterally) Respiratory: reports: No Symptoms reported Cardiac: reports: No Symptoms Reported GI: reports: Nausea, Poor Fluid Intake, Abdominal cramping : reports: No Symptoms Reported Musculoskeletal: reports: No Symptoms Reported Integumentary: reports: No Symptoms Reported Neuro: reports: Seizure (2013 no treatment), Tremors Endocrine: reports: No Symptoms Reported Hematology: reports: No Symptoms Reported Psychiatric: reports: Judgement Intact, Anxious, Depressed Other Systems: Reviewed and Negative Patient History - Patient Medical History Hx Anemia: No Hx Asthma: No Hx Chronic Obstructive Pulmonary Disease (COPD): No Hx Cancer: No Hx Cardiac Disorders: No Hx Congestive Heart Failure: No Hx Hypertension: No Hx Hypercholesterolemia: No Hx Pacemaker: No HX Cerebrovascular Accident: No Hx Seizures: Yes Hx Dementia: No Hx Diabetes: No Hx Gastrointestinal Disorders: No Hx Liver Disease: No Hx Genitourinary Disorders: No Hx Sexually Transmitted Disorders: No Hx Renal Disease (ESRD): No Hx Thyroid Disease: No Hx Human Immunodeficiency Virus (HIV): No Hx Hepatitis C: No Hx Depression: Yes Hx Suicide Attempt: No Hx Bipolar Disorder: No Hx Schizophrenia: No - Patient Surgical History Past Surgical History: Yes Hx Neurologic Surgery: No Hx Cataract Extraction: No Hx Cardiac Surgery: No Hx Lung Surgery: No Hx Breast Surgery: No Hx Breast Biopsy: No Hx Abdominal Surgery: No Hx Appendectomy: Yes (age 14) Hx Cholecystectomy: No Hx Genitourinary Surgery: No Hx Orthopedic Surgery: No Anesthesia Reaction: No - PPD History Previous Implant?: Yes Documented Results: Negative w/proof Implanted On Prior [facility] Admission?: Yes Date: 04/24/17 Results: 0 mm PPD to be Administered?: No - Smoking Cessation Smoking history: Current every day smoker Have you smoked in the past 12 months: Yes Aproximately how many cigarettes per day: 3 Cigars Per Day: 0 Hx Chewing Tobacco Use: No Initiated information on smoking cessation: Yes 'Breaking Loose' booklet given: 09/20/17 - Substance & Tx. History Hx Alcohol Use: Yes Hx Substance Use: No Substance Use Type: Alcohol Hx Substance Use Treatment: Yes (07/2017 [facility] - Substances Abused Alcohol Route: Oral Frequency: Daily Amount used: pint vodka Age of first use: 13 Date of Last Use: 09/19/17 Family Disease History - Family Disease History Family Disease History: Other: Father (no contact), Brother (Alcoholic/ suicidal), Sister (no contact) Admission Physical Exam BHS - Vital Signs Vital Signs: Vital Signs - 24 hr 09/20/17 21:45 Temperature 98.7 F Pulse Rate 74 Respiratory 18 Rate Blood Pressure 148/97 - Physical General Appearance: Yes: Appropriately Dressed, Mild Distress, Thin, Tremorous, Irritable, Sweating, Anxious HEENTM: Yes: Hearing grossly Normal, Normal ENT Inspection, Normocephalic, Normal Voice Respiratory: Yes: Chest Non-Tender, Lungs Clear, Normal Breath Sounds, No Respiratory Distress, No Accessory Muscle Use Neck: Yes: Supple, Trachea in good position Breast: Yes: Breasts Symetrical Cardiology: Yes: Regular Rhythm, Regular Rate, S1, S2 Abdominal: Yes: Non Tender, Soft, Increased Bowel Sounds Genitourinary: Yes: Within Normal Limits Back: Yes: Normal Inspection Musculoskeletal: Yes: full range of Motion, Gait Steady, Back pain Extremities: Yes: Normal Inspection, Normal Range of Motion, Non-Tender, Tremors Neurological: Yes: Alert, Motor Strength 5/5, Normal Response, Depressed Affect Integumentary: Yes: Warm Lymphatic: Yes: Within Normal Limits - Diagnostic (1) Alcohol dependence with uncomplicated withdrawal Current Visit: Yes Status: Acute (2) Nicotine dependence Current Visit: Yes Status: Acute Qualifiers: Nicotine product type: cigarettes Substance use status: in withdrawal Qualified Code(s): F17.213 - Nicotine dependence, cigarettes, with withdrawal (3) Glaucoma Current Visit: No Status: Chronic Qualifiers: Glaucoma type: unspecified Laterality: bilateral Qualified Code(s): H40.9 - Unspecified glaucoma Comment: no treatment (4) Depression (emotion) Current Visit: Yes Status: Suspected Qualifiers: Depression Type: dysthymia Qualified Code(s): F34.1 - Dysthymic disorder Cleared for Admission [facility] - Detox or Rehab [facility] Level of Care: Medically Managed Detox Regimen/Protocol: Librium [facility] Breath Alcohol Content Breath Alcohol Content: 0 Urine Drug Screen - Results Drug Screen Negative: No Urine Drug Screen Results: BZO-Benzodiazepines
[2017-09-20] MEDS ORDERED: P-EPHED 60MG/TRIPROLIDI 2.5MG TABLET PO PRN (22:29)
[2017-09-20] MEDS ORDERED: guaiFENesin/D-METHORPHAN HB 10 ML UNIT-DOSE CUPS PO PRN (22:29)
[2017-09-20] MEDS ORDERED: ACETAMINOPHEN 325 MG TABLET (FP) PO PRN (22:29)
[2017-09-20] MEDS ORDERED: MAGNESIUM CITRATE 300 ML BOTTLE PO PRN (22:29)
[2017-09-20] MEDS ORDERED: MENTHOL/PHENOL 1 EACH UD MM PRN (22:29)
[2017-09-20] MEDS ORDERED: MAGNESIUM HYDROX 2400MG/30ML ORAL SUSPENSION 30 ML CUP PO PRN (22:29)
[2017-09-20] MEDS ORDERED: LOPERAMIDE HCL 2 MG CAPSULE PO PRN (22:29)
[2017-09-20] MEDS ORDERED: MAG HYDROX/AL HYDROX/SIMETH 30 ML UNIT-DOSE CUP PO PRN (22:29)
[2017-09-20] MEDS ORDERED: IBUPROFEN 400 MG TABLET (FP) PO PRN (22:29)
[2017-09-20] MEDS ORDERED: chlordiazePOXIDE HCL 25 MG CAPSULE PO PRN (22:29)
[2017-09-20] MEDS ORDERED: NICOTINE POLACRILEX 2 MG GUM BC PRN (22:29)
[2017-09-21] MEDS: chlordiazePOXIDE HCL 25 MG CAPSULE PO SCH ×5 (01:38→22:21)
[2017-09-21 10:10] LABS: CHLORIDE 100 mmol/L (98-107); POTASSIUM 3.3 mmol/L (3.5-5.1); SODIUM 138 mmol/L (136-145)
[2017-09-21 10:16] LABS: HEMATOCRIT 43.5 % (35.4-49); HEMOGLOBIN 14.1 GM/dL (11.7-16.9); MCH 31.1 pg (25.7-33.7); MCHC 32.5 g/dl (32.0-35.9); MEAN CELL VOLUME 95.7 fl (80-96); MEAN PLT VOLUME 8.7 fl (7.5-11.1); PLATELET COUNT 139 K/MM3 (134-434); RBC 4.55 M/mm3 (4.00-5.60); WHITE BLOOD COUNT 8.7 K/mm3 (4.0-10.0)
[2017-09-21 10:20] LABS: ALBUMIN 3.8 g/dl (3.4-5.0); ALK PHOS 80 U/L (45-117); ANION GAP 10 (8-16); BILIRUBIN,TOTAL 1.1 mg/dL (0.2-1.0); BLOOD UREA NITROGEN 11 mg/dL (7-18); CALCIUM 8.7 mg/dL (8.5-10.1); CO2 28 mmol/L (21-32); CREATININE 0.7 mg/dL (0.7-1.3); GLUCOSE,RANDOM 95 mg/dL (74-106); SGOT/AST 101 U/L (15-37); SGPT/ALT 84 U/L (12-78); TOT PROT 7.4 g/dl (6.4-8.2)
[2017-09-21] MEDS: NICOTINE 14 MG/24 HOURS TOPICAL PATCH TD SCH (10:30)
[2017-09-21] MEDS: PRENATAL VITAMINS W/ FOLIC ACID TABLET (FP) PO SCH (10:30)
--- NOTE | 2017-09-21 10:55 | EKG ---
Test Reason : Blood Pressure : / mmHG Vent. Rate : 064 BPM Atrial Rate : 064 BPM P-R Int : 152 ms QRS Dur : 098 ms QT Int : 434 ms P-R-T Axes : 050 009 038 degrees QTc Int : 447 ms NORMAL SINUS RHYTHM POSSIBLE LEFT ATRIAL ENLARGEMENT LEFT VENTRICULAR HYPERTROPHY ABNORMAL ECG WHEN COMPARED WITH ECG OF 05-AUG-2017 00:43, T WAVE AMPLITUDE HAS INCREASED IN ANTERIOR LEADS Confirmed by MD Gaston, Rodney ([id number]) on 09/21/2017 10:54:49 AM Referred By: Timmy Bhatti Confirmed By:Rodney Feldman MD
--- NOTE | 2017-09-21 11:05 | PN ---
[facility] CIWA - CIWA Score Nausea/Vomitin-No Nausea/No Vomiting Muscle Tremors: 4-Moderate,w/Arms Extend Anxiety: 4-Mod. Anxious/Guarded Agitation: 4-Moderately Restless Paroxysmal Sweats: 1-Minimal Palms Moist Orientation: 0-Oriented Tacttile Disturbances: 3-Moderate Itch/Numb/Burn Auditory Disturbances: 0-None Visual Disturbances: 0-None Headache: 0-None Present CIWA-Ar Total Score: 16 S Progress Note (SOAP) Subjective: ANXIETY,IRRITABILITY,SWEATS,INTERMITTENT SLEEP. Objective: 09/21/17 11:04 Vital Signs Temperature 97.0 F L 09/21/17 10:11 Pulse Rate 98 H 09/21/17 10:11 Respiratory Rate 19 09/21/17 10:11 Blood Pressure 145/97 09/21/17 10:11 O2 Sat by Pulse Oximetry (%) Laboratory Last Values WBC 8.7 K/mm3 (4.0-10.0) D 09/21/17 07:00 RBC 4.55 M/mm3 (4.00-5.60) 09/21/17 07:00 Hgb 14.1 GM/dL (11.7-16.9) 09/21/17 07:00 Hct 43.5 % (35.4-49) 09/21/17 07:00 MCV 95.7 fl (80-96) 09/21/17 07:00 MCH 31.1 pg (25.7-33.7) 09/21/17 07:00 MCHC 32.5 g/dl (32.0-35.9) 09/21/17 07:00 RDW 14.0 % (11.9-15.9) 09/21/17 07:00 Plt Count 139 K/MM3 (134-434) 09/21/17 07:00 MPV 8.7 fl (7.5-11.1) 09/21/17 07:00 Sodium 138 mmol/L (136-145) 09/21/17 07:00 Potassium 3.3 mmol/L (3.5-5.1) L 09/21/17 07:00 Chloride 100 mmol/L (98-107) 09/21/17 07:00 Carbon Dioxide 28 mmol/L (21-32) 09/21/17 07:00 Anion Gap 10 (8-16) 09/21/17 07:00 BUN 11 mg/dL (7-18) D 09/21/17 07:00 Creatinine 0.7 mg/dL (0.7-1.3) 09/21/17 07:00 Creat Clearance w eGFR > 60 (>60) 09/21/17 07:00 Random Glucose 95 mg/dL (74-106) D 09/21/17 07:00 Calcium 8.7 mg/dL (8.5-10.1) 09/21/17 07:00 Total Bilirubin 1.1 mg/dL (0.2-1.0) H D 09/21/17 07:00 AST 101 U/L (15-37) H D 09/21/17 07:00 ALT 84 U/L (12-78) H D 09/21/17 07:00 Alkaline Phosphatase 80 U/L (45-117) 09/21/17 07:00 Total Protein 7.4 g/dl (6.4-8.2) 09/21/17 07:00 Albumin 3.8 g/dl (3.4-5.0) 09/21/17 07:00 Assessment: 09/21/17 11:05 WITHDRAWAL SX Plan: CONTINUE DETOX
[2017-09-21 15:14] LABS: URINE APPEARANCE CLEAR; URINE BILIRUBIN NEGATIVE (NEGATIVE); URINE BLOOD NEGATIVE (NEGATIVE); URINE COLOR YELLOW; URINE GLUCOSE (UA) NEGATIVE (NEGATIVE); URINE KETONE 1+ (NEGATIVE); URINE LEUK ESTERASE NEGATIVE (NEGATIVE); URINE NITRITE NEGATIVE (NEGATIVE); URINE PROTEIN NEGATIVE (NEGATIVE); URINE UROBILINOGEN NEGATIVE mg/dL (0.2-1.0)
--- NOTE | 2017-09-21 15:16 | CONSULT ---
[facility] Psychiatric Consult - Data Date of interview: 09/21/17 Admission source: [facility] Identifying data: Pt. 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 This is one of multiple admissions for patient. Pt. admitted to for alcohol dependence. Substance Abuse History: - Smoking Cessation. Smoking history: Current every day smoker. Have you smoked in the past 12 months: Yes. Aproximately how many cigarettes per day: 3. Cigars Per Day: 0. Hx Chewing Tobacco Use: No. Initiated information on smoking cessation: Yes. 'Breaking Loose' booklet given : 09/20/17. - Substance & Tx. History. Hx Alcohol Use: Yes. Hx Substance Use : No. Substance Use Type: Alcohol. Hx Substance Use Treatment: Yes (07/2017 [facility]). - Substances Abused. Alcohol. Route: Oral. Frequency: Daily. Amount used: pint vodka. Age of first use: 13. Date of Last Use: 09/19/17 Medical History: Glaucoma, Seizures (withdrawals) Psychiatric History: Pt. denies h/o psychiatric hospitalizations, suicide attempts, and OPC. Physical/Sexual Abuse/Trauma History: Denies. Mental Status Exam - Mental Status Exam Alert and Oriented to: Time, Place, Person Cognitive Function: Good Patient Appearance: Well Groomed Mood: Euthymic Affect: Mood Congruent Patient Behavior: Appropriate, Cooperative Speech Pattern: Clear, Appropriate Voice Loudness: Normal Thought Process: Goal Oriented Thought Disorder: Not Present Hallucinations: Denies Suicidal Ideation: Denies Homicidal Ideation: Denies Insight/Judgement: Poor Sleep: Fair Appetite: Fair Muscle strength/Tone: Normal Gait/Station: Normal Psychiatric Findings - Problem List ([place] 1, 2,3) (1) Alcohol dependence with uncomplicated withdrawal Current Visit: Yes Status: Acute (2) Nicotine dependence Current Visit: Yes Status: Acute Qualifiers: Nicotine product type: cigarettes Substance use status: in withdrawal Qualified Code(s): F17.213 - Nicotine dependence, cigarettes, with withdrawal - Initial Treatment Plan Initial Treatment Plan: Psychoeducation provided. Detoxification provided. Observation.
[2017-09-21] MEDS: THIAMINE HCL 100 MG TABLET (FP) PO SCH (22:21)
[2017-09-22] MEDS: chlordiazePOXIDE HCL 25 MG CAPSULE PO SCH ×3 (05:19→17:42)
[2017-09-22] MEDS: NICOTINE 14 MG/24 HOURS TOPICAL PATCH TD SCH (10:35)
[2017-09-22] MEDS: PRENATAL VITAMINS W/ FOLIC ACID TABLET (FP) PO SCH (10:35)
--- NOTE | 2017-09-22 11:42 | PN ---
[facility] CIWA - CIWA Score Nausea/Vomitin-No Nausea/No Vomiting Muscle Tremors: 4-Moderate,w/Arms Extend Anxiety: 4-Mod. Anxious/Guarded Agitation: 4-Moderately Restless Paroxysmal Sweats: 1-Minimal Palms Moist Orientation: 0-Oriented Tacttile Disturbances: 3-Moderate Itch/Numb/Burn Auditory Disturbances: 0-None Visual Disturbances: 0-None Headache: 0-None Present CIWA-Ar Total Score: 16 BHS Progress Note (SOAP) Subjective: ANXIETY,SWEATS, TREMORS. Objective: 09/22/17 11:52 Vital Signs Temperature 97.7 F 09/22/17 09:17 Pulse Rate 105 H 09/22/17 09:17 Respiratory Rate 20 09/22/17 09:17 Blood Pressure 120/75 09/22/17 09:17 O2 Sat by Pulse Oximetry (%) Laboratory Last Values WBC 8.7 K/mm3 (4.0-10.0) D 09/21/17 07:00 RBC 4.55 M/mm3 (4.00-5.60) 09/21/17 07:00 Hgb 14.1 GM/dL (11.7-16.9) 09/21/17 07:00 Hct 43.5 % (35.4-49) 09/21/17 07:00 MCV 95.7 fl (80-96) 09/21/17 07:00 MCH 31.1 pg (25.7-33.7) 09/21/17 07:00 MCHC 32.5 g/dl (32.0-35.9) 09/21/17 07:00 RDW 14.0 % (11.9-15.9) 09/21/17 07:00 Plt Count 139 K/MM3 (134-434) 09/21/17 07:00 MPV 8.7 fl (7.5-11.1) 09/21/17 07:00 Sodium 138 mmol/L (136-145) 09/21/17 07:00 Potassium 3.3 mmol/L (3.5-5.1) L 09/21/17 07:00 Chloride 100 mmol/L (98-107) 09/21/17 07:00 Carbon Dioxide 28 mmol/L (21-32) 09/21/17 07:00 Anion Gap 10 (8-16) 09/21/17 07:00 BUN 11 mg/dL (7-18) D 09/21/17 07:00 Creatinine 0.7 mg/dL (0.7-1.3) 09/21/17 07:00 Creat Clearance w eGFR > 60 (>60) 09/21/17 07:00 Random Glucose 95 mg/dL (74-106) D 09/21/17 07:00 Calcium 8.7 mg/dL (8.5-10.1) 09/21/17 07:00 Total Bilirubin 1.1 mg/dL (0.2-1.0) H D 09/21/17 07:00 AST 101 U/L (15-37) H D 09/21/17 07:00 ALT 84 U/L (12-78) H D 09/21/17 07:00 Alkaline Phosphatase 80 U/L (45-117) 09/21/17 07:00 Total Protein 7.4 g/dl (6.4-8.2) 09/21/17 07:00 Albumin 3.8 g/dl (3.4-5.0) 09/21/17 07:00 Urine Color Yellow 09/20/17 12:30 Urine Appearance Clear 09/20/17 12:30 Urine pH 8.0 (5.0-8.0) D 09/20/17 12:30 Ur Specific [place] 1.019 (1.001-1.035) 09/20/17 12:30 Urine Protein Negative (NEGATIVE) 09/20/17 12:30 Urine Glucose (UA) Negative (NEGATIVE) 09/20/17 12:30 Urine Ketones 1+ (NEGATIVE) H 09/20/17 12:30 Urine Blood Negative (NEGATIVE) 09/20/17 12:30 Urine Nitrite Negative (NEGATIVE) 09/20/17 12:30 Urine Bilirubin Negative (NEGATIVE) 09/20/17 12:30 Urine Urobilinogen Negative mg/dL (0.2-1.0) 09/20/17 12:30 Ur Leukocyte Esterase Negative (NEGATIVE) 09/20/17 12:30 RPR Titer Nonreactive (NONREACTIVE) 09/21/17 07:00 K+ = 3.3 Assessment: 09/22/17 11:53 WITHDRAWAL SX HYPOKALEMIA Plan: CONTINUE DETOX
[2017-09-22] MEDS ORDERED: POTASSIUM CHLORIDE ORAL LIQUID 20 MEQ/15 ML PO ONE (12:43)
[2017-09-22] MEDS: THIAMINE HCL 100 MG TABLET (FP) PO SCH (22:18)
[2017-09-22] MEDS: POTASSIUM CHLORIDE ORAL LIQUID 20 MEQ/15 ML PO SCH (22:18)
[2017-09-22] MEDS: chlordiazePOXIDE 5 MG CAPSULE PO SCH (22:19)
[2017-09-23] MEDS: chlordiazePOXIDE 5 MG CAPSULE PO SCH ×3 (05:18→17:44)
[2017-09-23] MEDS: PRENATAL VITAMINS W/ FOLIC ACID TABLET (FP) PO SCH (10:25)
[2017-09-23] MEDS: POTASSIUM CHLORIDE ORAL LIQUID 20 MEQ/15 ML PO SCH ×2 (10:25→22:19)
[2017-09-23] MEDS: NICOTINE 14 MG/24 HOURS TOPICAL PATCH TD SCH (10:27)
--- NOTE | 2017-09-23 11:02 | PN ---
BHS Progress Note (SOAP) Subjective: DECREASED ANXIETY,SWEATS,TREMORS. FATIGUE.INTERMITTENT SLEEP. Objective: 09/23/17 11:02 Vital Signs Temperature 96.3 F L 09/23/17 09:08 Pulse Rate 99 H 09/23/17 09:08 Respiratory Rate 20 09/23/17 09:08 Blood Pressure 122/86 09/23/17 09:08 O2 Sat by Pulse Oximetry (%) Laboratory Last Values WBC 8.7 K/mm3 (4.0-10.0) D 09/21/17 07:00 RBC 4.55 M/mm3 (4.00-5.60) 09/21/17 07:00 Hgb 14.1 GM/dL (11.7-16.9) 09/21/17 07:00 Hct 43.5 % (35.4-49) 09/21/17 07:00 MCV 95.7 fl (80-96) 09/21/17 07:00 MCH 31.1 pg (25.7-33.7) 09/21/17 07:00 MCHC 32.5 g/dl (32.0-35.9) 09/21/17 07:00 RDW 14.0 % (11.9-15.9) 09/21/17 07:00 Plt Count 139 K/MM3 (134-434) 09/21/17 07:00 MPV 8.7 fl (7.5-11.1) 09/21/17 07:00 Sodium 138 mmol/L (136-145) 09/21/17 07:00 Potassium 3.3 mmol/L (3.5-5.1) L 09/21/17 07:00 Chloride 100 mmol/L (98-107) 09/21/17 07:00 Carbon Dioxide 28 mmol/L (21-32) 09/21/17 07:00 Anion Gap 10 (8-16) 09/21/17 07:00 BUN 11 mg/dL (7-18) D 09/21/17 07:00 Creatinine 0.7 mg/dL (0.7-1.3) 09/21/17 07:00 Creat Clearance w eGFR > 60 (>60) 09/21/17 07:00 Random Glucose 95 mg/dL (74-106) D 09/21/17 07:00 Calcium 8.7 mg/dL (8.5-10.1) 09/21/17 07:00 Total Bilirubin 1.1 mg/dL (0.2-1.0) H D 09/21/17 07:00 AST 101 U/L (15-37) H D 09/21/17 07:00 ALT 84 U/L (12-78) H D 09/21/17 07:00 Alkaline Phosphatase 80 U/L (45-117) 09/21/17 07:00 Total Protein 7.4 g/dl (6.4-8.2) 09/21/17 07:00 Albumin 3.8 g/dl (3.4-5.0) 09/21/17 07:00 Urine Color Yellow 09/20/17 12:30 Urine Appearance Clear 09/20/17 12:30 Urine pH 8.0 (5.0-8.0) D 09/20/17 12:30 Ur Specific [place] 1.019 (1.001-1.035) 09/20/17 12:30 Urine Protein Negative (NEGATIVE) 09/20/17 12:30 Urine Glucose (UA) Negative (NEGATIVE) 09/20/17 12:30 Urine Ketones 1+ (NEGATIVE) H 09/20/17 12:30 Urine Blood Negative (NEGATIVE) 09/20/17 12:30 Urine Nitrite Negative (NEGATIVE) 09/20/17 12:30 Urine Bilirubin Negative (NEGATIVE) 09/20/17 12:30 Urine Urobilinogen Negative mg/dL (0.2-1.0) 09/20/17 12:30 Ur Leukocyte Esterase Negative (NEGATIVE) 09/20/17 12:30 RPR Titer Nonreactive (NONREACTIVE) 09/21/17 07:00 Assessment: 09/23/17 11:02 WITHDRAWAL SX Plan: CONTINUE DETOX
[2017-09-23] MEDS: THIAMINE HCL 100 MG TABLET (FP) PO SCH (22:19)
[2017-09-23] MEDS: chlordiazePOXIDE HCL 10 MG CAPSULE PO SCH (22:20)
[2017-09-24] MEDS: chlordiazePOXIDE HCL 10 MG CAPSULE PO SCH ×2 (05:52→10:35)
[2017-09-24 06:25] VITALS: BP 119/76; PULSE 62; TEMP 97.1
[2017-09-24] MEDS ORDERED: COLLOIDAL OATMEAL 1 BAR EACH TP ONE (09:51)
--- NOTE | 2017-09-24 09:52 | DS ---
[facility] Detox Discharge Summary Admission Date: 09/20/17 Discharge Date: 09/24/17 - Physical Exam Results Vital Signs: Vital Signs Temperature 97.1 F L 09/24/17 06:24 Pulse Rate 62 09/24/17 06:24 Respiratory Rate 18 09/24/17 06:24 Blood Pressure 119/76 09/24/17 06:24 O2 Sat by Pulse Oximetry (%) - Medication Discharge Medications: Ambulatory Orders NK [No Known Home Medication] 03/10/17 - Diagnosis (1) Alcohol dependence with uncomplicated withdrawal Current Visit: Yes Status: Acute (2) Nicotine dependence Current Visit: Yes Status: Acute Qualifiers: Nicotine product type: cigarettes Substance use status: in withdrawal Qualified Code(s): F17.213 - Nicotine dependence, cigarettes, with withdrawal (3) Glaucoma Current Visit: No Status: Chronic Qualifiers: Glaucoma type: unspecified Laterality: bilateral Qualified Code(s): H40.9 - Unspecified glaucoma
[2017-09-24] MEDS: NICOTINE 14 MG/24 HOURS TOPICAL PATCH TD SCH (10:33)
[2017-09-24] MEDS: PRENATAL VITAMINS W/ FOLIC ACID TABLET (FP) PO SCH (10:34)
[2017-09-24] MEDS: POTASSIUM CHLORIDE ORAL LIQUID 20 MEQ/15 ML PO SCH (10:41)
== END 2017-09-24 12:27 | disposition home or self-care (01) | DRG 775 ==
LOC: YASAS 20:17 → Y3N 22:34
PROVIDERS: ADMIT Internal Medicine; ATTEND Internal Medicine
PROC: HZ2ZZZZ Detoxification Services for Substance Abuse Treatment (ICD-10-PCS; principal; 2017-09-20)
DX: F10.230 Alcohol dependence with withdrawal, uncomplicated (principal); F17.213 Nicotine dependence, cigarettes, with withdrawal; F34.1 Dysthymic disorder; H40.9 Unspecified glaucoma; Z59.0 Homelessness
CPT/HCPCS: 36415; 80053; 81003; 85027; 86593; 93005; 93010

== ENCOUNTER 2017-12-27 19:46 | Inpatient (IN) | payer OTHER ==
[2017-12-27 21:02] VITALS: BMI 22.1
--- NOTE | 2017-12-27 22:05 | HP ---
CIWA Score - CIWA Score Nausea/Vomitin-No Nausea/No Vomiting Muscle Tremors: 3 Anxiety: 3 Agitation: 3 Paroxysmal Sweats: No Perspiration Orientation: 1-Uncertain about Date Tacttile Disturbances: 0-None Auditory Disturbances: 0-None Visual Disturbances: 2-Mild Sensitivity Headache: 0-None Present CIWA-Ar Total Score: 12 Admission ROS BHS - HPI Chief Complaint: alcohol withdrawal sx Allergies/Adverse Reactions: Allergies Allergy/AdvReac Type Severity Reaction Status Date / Time No Known Allergies Allergy Verified 09/20/17 22:30 History of Present Illness: 52 yo male with nicotine and alcohol dependence is here seeking detox:. PMHX: depression and anxiety, denies any other medical problems. Denies suicidal / homicidal ideation or suicide attempts. Last detox at [facility] September 2017. Longest period of sobriety 5 months. Exam Limitations: No Limitations - Ebola screening Have you been sick,other than usual withdrawal symptoms: No - Review of Systems Constitutional: Chills, Loss of Appetite, Unintentional Wgt. Loss EENT: reports: Other (galucom both eyes) Respiratory: reports: No Symptoms reported Cardiac: reports: No Symptoms Reported GI: reports: Poor Appetite, Poor Fluid Intake : reports: No Symptoms Reported Musculoskeletal: reports: Back Pain Integumentary: reports: No Symptoms Reported Neuro: reports: No Symptoms reported Endocrine: reports: Increased Thirst Hematology: reports: Easy Bruising Psychiatric: reports: Orientated x3, Anxious Other Systems: Reviewed and Negative Patient History - Patient Medical History Hx Anemia: No Hx Asthma: No Hx Chronic Obstructive Pulmonary Disease (COPD): No Hx Cancer: No Hx Cardiac Disorders: No Hx Congestive Heart Failure: No Hx Hypertension: No Hx Hypercholesterolemia: No Hx Pacemaker: No HX Cerebrovascular Accident: No Hx Seizures: Yes (last episode 2 years ago ) Hx Dementia: No Hx Diabetes: No Hx Gastrointestinal Disorders: No Hx Liver Disease: No Hx Genitourinary Disorders: No Hx Sexually Transmitted Disorders: No Hx Renal Disease (ESRD): No Hx Thyroid Disease: No Hx Human Immunodeficiency Virus (HIV): No Hx Hepatitis C: No Hx Depression: Yes Hx Suicide Attempt: No Hx Bipolar Disorder: No Hx Schizophrenia: No - Patient Surgical History Past Surgical History: Yes Hx Neurologic Surgery: No Hx Cataract Extraction: No Hx Cardiac Surgery: No Hx Lung Surgery: No Hx Breast Surgery: No Hx Breast Biopsy: No Hx Abdominal Surgery: No Hx Appendectomy: Yes (age 14) Hx Cholecystectomy: No Hx Genitourinary Surgery: No Hx Section: No Hx Orthopedic Surgery: No Anesthesia Reaction: No - PPD History Previous Implant?: Yes Documented Results: Negative w/proof Date: 04/24/17 Results: 0 mm PPD to be Administered?: No - Reproductive History Patient is a Female of Child Bearing Age (11 -55 yrs old): No - Smoking Cessation Smoking history: Current every day smoker Have you smoked in the past 12 months: Yes Aproximately how many cigarettes per day: 3 Cigars Per Day: 0 Hx Chewing Tobacco Use: No Initiated information on smoking cessation: Yes 'Breaking Loose' booklet given: 12/27/17 - Substance & Tx. History Hx Alcohol Use: Yes Hx Substance Use: Yes Substance Use Type: Alcohol Hx Substance Use Treatment: Yes ([facility] 2017) Family Disease History - Family Disease History Family Disease History: Other: Father (no contact), Brother (Alcoholic/ suicidal), Sister (no contact) Admission Physical Exam S - Vital Signs Vital Signs: Vital Signs - 24 hr 12/27/17 21:00 Temperature 98.2 F Pulse Rate 106 H Respiratory 20 Rate Blood Pressure 164/85 - Physical General Appearance: Yes: Disheveled, Alcohol on Breath, Thin, Tremorous, Anxious HEENTM: Yes: EOMI, Hearing grossly Normal, Normal ENT Inspection, Normocephalic , Normal Voice, JUAREZ, Pharynx Normal, Tm's normal, Other (poor dentation, chelithis) Respiratory: Yes: Chest Non-Tender, Lungs Clear, Normal Breath Sounds, No Respiratory Distress, No Accessory Muscle Use Neck: Yes: No masses,lesions,Nodules, Trachea in good position Breast: Yes: Breast Exam Deferred Cardiology: Yes: Regular Rhythm, Regular Rate Abdominal: Yes: Normal Bowel Sounds, Non Tender, Flat, Soft Genitourinary: Yes: Within Normal Limits Back: Yes: Normal Inspection Musculoskeletal: Yes: full range of Motion, Gait Steady, Pelvis Stable Extremities: Yes: Within Normal Limits Neurological: Yes: 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, Fully Oriented, Alert, Motor Strength 5/5, Depressed Affect Lymphatic: Yes: Within Normal Limits - Diagnostic (1) Alcohol dependence with uncomplicated withdrawal Current Visit: Yes Status: Acute (2) Nicotine dependence Current Visit: Yes Status: Acute Qualifiers: Nicotine product type: cigarettes Substance use status: in withdrawal Qualified Code(s): F17.213 - Nicotine dependence, cigarettes, with withdrawal (3) Glaucoma Current Visit: Yes Status: Chronic Qualifiers: Glaucoma type: unspecified Laterality: bilateral Qualified Code(s): H40.9 - Unspecified glaucoma Comment: no treatment (4) Depression (emotion) Current Visit: Yes Status: Suspected Qualifiers: Depression Type: unspecified Qualified Code(s): F32.9 - Major depressive disorder, single episode, unspecified (5) Elevated blood pressure reading in office without diagnosis of hypertension Current Visit: Yes Status: Acute Cleared for Admission S - Detox or Rehab S Level of Care: Medically Managed Detox Regimen/Protocol: Librium S Breath Alcohol Content Breath Alcohol Content: 0.265 Urine Drug Screen - Results Drug Screen Negative: Yes
[2017-12-27] MEDS ORDERED: chlordiazePOXIDE HCL 25 MG CAPSULE PO PRN (22:09)
[2017-12-27] MEDS ORDERED: chlordiazePOXIDE HCL 25 MG CAPSULE PO ONE (22:09)
[2017-12-27] MEDS ORDERED: MAG HYDROX/AL HYDROX/SIMETH 30 ML UNIT-DOSE CUP PO PRN (22:09)
[2017-12-27] MEDS ORDERED: MAGNESIUM HYDROX 2400MG/30ML ORAL SUSPENSION 30 ML CUP PO PRN (22:09)
[2017-12-27] MEDS ORDERED: hydrOXYzine PAMOATE 50 MG CAPSULE (FP) PO PRN (22:09)
[2017-12-27] MEDS ORDERED: MAGNESIUM CITRATE 300 ML BOTTLE PO PRN (22:09)
[2017-12-27] MEDS ORDERED: guaiFENesin/D-METHORPHAN HB 10 ML UNIT-DOSE CUPS PO PRN (22:09)
[2017-12-27] MEDS ORDERED: LOPERAMIDE HCL 2 MG CAPSULE PO PRN (22:09)
[2017-12-27] MEDS ORDERED: P-EPHED 60MG/TRIPROLIDI 2.5MG TABLET PO PRN (22:09)
[2017-12-27] MEDS ORDERED: ACETAMINOPHEN 325 MG TABLET (FP) PO PRN (22:09)
[2017-12-27] MEDS ORDERED: MENTHOL/PHENOL 1 EACH UD MM PRN (22:09)
[2017-12-27] MEDS ORDERED: NICOTINE POLACRILEX 2 MG GUM BC PRN (22:09)
[2017-12-27] MEDS ORDERED: IBUPROFEN 400 MG TABLET (FP) PO PRN (22:09)
[2017-12-27] MEDS: chlordiazePOXIDE HCL 25 MG CAPSULE PO SCH (23:43)
[2017-12-28 03:33] LABS: URINE APPEARANCE CLEAR; URINE BILIRUBIN NEGATIVE (<2.0 mg/dL); URINE BLOOD NEGATIVE (NEGATIVE); URINE COLOR LTYELLOW; URINE GLUCOSE (UA) NEGATIVE (NEGATIVE); URINE KETONE NEGATIVE (NEGATIVE); URINE LEUK ESTERASE NEGATIVE (NEGATIVE); URINE NITRITE NEGATIVE (NEGATIVE); URINE PROTEIN NEGATIVE (NEGATIVE)
[2017-12-28] MEDS: chlordiazePOXIDE HCL 25 MG CAPSULE PO SCH ×4 (05:25→22:27)
[2017-12-28 10:23] LABS: HEMOGLOBIN 13.1 GM/dL (11.7-16.9); MCH 30.8 pg (25.7-33.7); MCHC 33.7 g/dl (32.0-35.9); MEAN CELL VOLUME 91.6 fl (80-96); MEAN PLT VOLUME 8.9 fl (7.5-11.1); PLATELET COUNT 157 K/MM3 (134-434); RBC 4.26 M/mm3 (4.00-5.60); RDW 13.8 % (11.9-15.9); WHITE BLOOD COUNT 7.2 K/mm3 (4.0-10.0)
--- NOTE | 2017-12-28 10:24 | EKG ---
Test Reason : Blood Pressure : / mmHG Vent. Rate : 099 BPM Atrial Rate : 099 BPM P-R Int : 144 ms QRS Dur : 092 ms QT Int : 372 ms P-R-T Axes : 052 -08 053 degrees QTc Int : 477 ms NORMAL SINUS RHYTHM POSSIBLE LEFT ATRIAL ENLARGEMENT BORDERLINE ECG WHEN COMPARED WITH ECG OF 21-SEP-2017 02:30, VENT. RATE HAS INCREASED BY 35 BPM NONSPECIFIC T WAVE ABNORMALITY NOW EVIDENT IN LATERAL LEADS Confirmed by MD SALUD, KEATON ([id number]) on 12/28/2017 10:23:58 AM Referred By: Confirmed By:KEATON BRANNON MD
--- NOTE | 2017-12-28 10:29 | PN ---
S CIWA - CIWA Score Nausea/Vomitin Muscle Tremors: 3 Anxiety: 3 Agitation: 3 Paroxysmal Sweats: 1-Minimal Palms Moist Orientation: 0-Oriented Tacttile Disturbances: 1-Very Mild Itch/Numbness Auditory Disturbances: 1-Very Mild Visual Disturbances: 0-None Headache: 2-Mild CIWA-Ar Total Score: 17 BHS Progress Note (SOAP) Subjective: ALERT,IRRITABLE,ANXIOUS,INTERRUPTED SLEEP,TREMOR Objective: 12/28/17 10:28 Vital Signs Temperature 97.9 F 12/28/17 06:47 Pulse Rate 98 H 12/28/17 10:00 Respiratory Rate 18 12/28/17 10:00 Blood Pressure 136/83 12/28/17 06:47 O2 Sat by Pulse Oximetry (%) EKG NSR,PROLONG QT 372/477 NO CHEST PAIN,NO SOB,NO DIZZINESS Laboratory Last Values WBC 7.2 K/mm3 (4.0-10.0) 12/28/17 07:30 RBC 4.26 M/mm3 (4.00-5.60) 12/28/17 07:30 Hgb 13.1 GM/dL (11.7-16.9) 12/28/17 07:30 Hct 39.0 % (35.4-49) 12/28/17 07:30 MCV 91.6 fl (80-96) 12/28/17 07:30 MCH 30.8 pg (25.7-33.7) 12/28/17 07:30 MCHC 33.7 g/dl (32.0-35.9) 12/28/17 07:30 RDW 13.8 % (11.9-15.9) 12/28/17 07:30 Plt Count 157 K/MM3 (134-434) 12/28/17 07:30 MPV 8.9 fl (7.5-11.1) 12/28/17 07:30 Urine Color Ltyellow 12/27/17 23:20 Urine Appearance Clear 12/27/17 23:20 Urine pH 6.0 (5.0-8.0) D 12/27/17 23:20 Ur Specific [place] 1.012 (1.001-1.035) 12/27/17 23:20 Urine Protein Negative (NEGATIVE) 12/27/17 23:20 Urine Glucose (UA) Negative (NEGATIVE) 12/27/17 23:20 Urine Ketones Negative (NEGATIVE) 12/27/17 23:20 Urine Blood Negative (NEGATIVE) 12/27/17 23:20 Urine Nitrite Negative (NEGATIVE) 12/27/17 23:20 Urine Bilirubin Negative (<2.0 mg/dL) 12/27/17 23:20 Urine Urobilinogen 2.0 mg/dL (0.2-1.0) 12/27/17 23:20 Ur Leukocyte Esterase Negative (NEGATIVE) 12/27/17 23:20 LABS PENDING Assessment: 12/28/17 10:29 WITHDRAWAL SYMPTOM Plan: CONTINUE DETOX
[2017-12-28] MEDS: PRENATAL VITAMINS W/ FOLIC ACID TABLET (FP) PO SCH (10:48)
[2017-12-28] MEDS: NICOTINE 14 MG/24 HOURS TOPICAL PATCH TD SCH (10:48)
[2017-12-28 11:13] LABS: CHLORIDE 107 mmol/L (98-107); POTASSIUM 4.2 mmol/L (3.5-5.1); SODIUM 144 mmol/L (136-145)
[2017-12-28 11:20] LABS: ALBUMIN 3.6 g/dl (3.4-5.0); ALK PHOS 74 U/L (45-117); ANION GAP 10 (8-16); BILIRUBIN,TOTAL 0.5 mg/dL (0.2-1.0); BLOOD UREA NITROGEN 14 mg/dL (7-18); CALCIUM 8.4 mg/dL (8.5-10.1); CO2 27 mmol/L (21-32); CREATININE 0.7 mg/dL (0.7-1.3); GLUCOSE,RANDOM 96 mg/dL (74-106); SGOT/AST 35 U/L (15-37); SGPT/ALT 29 U/L (12-78); TOT PROT 6.8 g/dl (6.4-8.2)
--- NOTE | 2017-12-28 13:09 | CONSULT ---
[facility] Psychiatric Consult - Data Date of interview: 12/28/17 Admission source: [facility] Identifying data: Patient is a 52 year old male, father of two, unemployed (no longer receiving food stamps), and currently homeless. This is one of multiple admissions for patient. Pt. admitted to for alcohol dependence. Substance Abuse History: Following information confirmed with Mr. Romeo: Smoking Cessation. Smoking history: Current every day smoker. Have you smoked in the past 12 months: Yes. Aproximately how many cigarettes per day: 3. Cigars Per Day: 0. Hx Chewing Tobacco Use: No. Initiated information on smoking cessation: Yes. 'Breaking Loose' booklet given: 12/27/17. - Substance & Tx. History. Hx Alcohol Use: Yes. Hx Substance Use: Yes. Substance Use Type : Alcohol. Hx Substance Use Treatment: Yes ([facility] 2017) Medical History: Seizures ( last episode 2 years ago), Appendectomy ( 14 years of age) Psychiatric History: Pt. denies h/o psychiatric hospitalizations, and suicide attempt. Pt. reports outpatient care at [facility] "few years ago" in which he saw a psychiatrist one time and was told he did not have a mental illness. Pt. denies h/o suicide attempts. Pt. currently denies suicidal and homicidal ideation. Physical/Sexual Abuse/Trauma History: Denies. Mental Status Exam - Mental Status Exam Alert and Oriented to: Time, Place, Person Cognitive Function: Good Patient Appearance: Unkempt Mood: Withdrawn, Euthymic Affect: Mood Congruent Patient Behavior: Appropriate Speech Pattern: Appropriate Voice Loudness: Moderately Soft/Quiet Thought Process: Goal Oriented Thought Disorder: Not Present Hallucinations: Denies Suicidal Ideation: Denies Homicidal Ideation: Denies Insight/Judgement: Poor Sleep: Fair Appetite: Fair Muscle strength/Tone: Normal Gait/Station: Other (Did not observe patient's gait.) Psychiatric Findings - Problem List ([place] 1, 2,3) (1) Alcohol dependence with uncomplicated withdrawal Current Visit: Yes Status: Acute (2) Nicotine dependence Current Visit: Yes Status: Chronic Qualifiers: Nicotine product type: cigarettes Substance use status: in withdrawal Qualified Code(s): F17.213 - Nicotine dependence, cigarettes, with withdrawal - Initial Treatment Plan Initial Treatment Plan: Psychoeducation provided. Detoxification in progress. Observation.
[2017-12-28] MEDS: MELATONIN 5 MG TABLETS PO PRN (22:26)
[2017-12-28] MEDS: THIAMINE HCL 100 MG TABLET (FP) PO SCH (22:27)
[2017-12-29] MEDS: chlordiazePOXIDE HCL 25 MG CAPSULE PO SCH ×3 (05:49→18:02)
[2017-12-29] MEDS: PRENATAL VITAMINS W/ FOLIC ACID TABLET (FP) PO SCH (10:22)
[2017-12-29] MEDS: NICOTINE 14 MG/24 HOURS TOPICAL PATCH TD SCH (10:23)
--- NOTE | 2017-12-29 12:50 | PN ---
S CIWA - CIWA Score Nausea/Vomitin Muscle Tremors: 3 Anxiety: 3 Agitation: 2 Paroxysmal Sweats: 1-Minimal Palms Moist Orientation: 0-Oriented Tacttile Disturbances: 1-Very Mild Itch/Numbness Auditory Disturbances: 1-Very Mild Visual Disturbances: 0-None Headache: 2-Mild CIWA-Ar Total Score: 16 BHS Progress Note (SOAP) Subjective: ALERT,IRRITABLE,ANXIOUS,INTERRUPTED SLEEP,TREMOR Objective: 12/29/17 12:48 Vital Signs Temperature 98.2 F 12/29/17 10:22 Pulse Rate 101 H 12/29/17 10:22 Respiratory Rate 20 12/29/17 10:22 Blood Pressure 123/91 12/29/17 10:22 O2 Sat by Pulse Oximetry (%) Laboratory Last Values WBC 7.2 K/mm3 (4.0-10.0) 12/28/17 07:30 RBC 4.26 M/mm3 (4.00-5.60) 12/28/17 07:30 Hgb 13.1 GM/dL (11.7-16.9) 12/28/17 07:30 Hct 39.0 % (35.4-49) 12/28/17 07:30 MCV 91.6 fl (80-96) 12/28/17 07:30 MCH 30.8 pg (25.7-33.7) 12/28/17 07:30 MCHC 33.7 g/dl (32.0-35.9) 12/28/17 07:30 RDW 13.8 % (11.9-15.9) 12/28/17 07:30 Plt Count 157 K/MM3 (134-434) 12/28/17 07:30 MPV 8.9 fl (7.5-11.1) 12/28/17 07:30 Sodium 144 mmol/L (136-145) 12/28/17 07:30 Potassium 4.2 mmol/L (3.5-5.1) D 12/28/17 07:30 Chloride 107 mmol/L (98-107) 12/28/17 07:30 Carbon Dioxide 27 mmol/L (21-32) 12/28/17 07:30 Anion Gap 10 (8-16) 12/28/17 07:30 BUN 14 mg/dL (7-18) D 12/28/17 07:30 Creatinine 0.7 mg/dL (0.7-1.3) 12/28/17 07:30 Creat Clearance w eGFR > 60 (>60) 12/28/17 07:30 Random Glucose 96 mg/dL (74-106) 12/28/17 07:30 Calcium 8.4 mg/dL (8.5-10.1) L 12/28/17 07:30 Total Bilirubin 0.5 mg/dL (0.2-1.0) D 12/28/17 07:30 AST 35 U/L (15-37) D 12/28/17 07:30 ALT 29 U/L (12-78) D 12/28/17 07:30 Alkaline Phosphatase 74 U/L (45-117) 12/28/17 07:30 Total Protein 6.8 g/dl (6.4-8.2) 12/28/17 07:30 Albumin 3.6 g/dl (3.4-5.0) 12/28/17 07:30 Urine Color Ltyellow 12/27/17 23:20 Urine Appearance Clear 12/27/17 23:20 Urine pH 6.0 (5.0-8.0) D 12/27/17 23:20 Ur Specific [place] 1.012 (1.001-1.035) 12/27/17 23:20 Urine Protein Negative (NEGATIVE) 12/27/17 23:20 Urine Glucose (UA) Negative (NEGATIVE) 12/27/17 23:20 Urine Ketones Negative (NEGATIVE) 12/27/17 23:20 Urine Blood Negative (NEGATIVE) 12/27/17 23:20 Urine Nitrite Negative (NEGATIVE) 12/27/17 23:20 Urine Bilirubin Negative (<2.0 mg/dL) 12/27/17 23:20 Urine Urobilinogen 2.0 mg/dL (0.2-1.0) 12/27/17 23:20 Ur Leukocyte Esterase Negative (NEGATIVE) 12/27/17 23:20 RPR Titer Nonreactive (NONREACTIVE) 12/28/17 07:30 HIV 1&2 Antibody Screen Negative 12/28/17 07:30 HIV P24 Antigen Negative 12/28/17 07:30 Assessment: 12/29/17 12:49 WITHDRAWAL SYMPTOM Plan: CONTINUE DETOX
[2017-12-29] MEDS: chlordiazePOXIDE 5 MG CAPSULE PO SCH (22:22)
[2017-12-29] MEDS: THIAMINE HCL 100 MG TABLET (FP) PO SCH (22:22)
[2017-12-29] MEDS: MELATONIN 5 MG TABLETS PO PRN (22:22)
[2017-12-30] MEDS: chlordiazePOXIDE 5 MG CAPSULE PO SCH ×3 (05:39→17:14)
[2017-12-30] MEDS: PRENATAL VITAMINS W/ FOLIC ACID TABLET (FP) PO SCH (11:08)
[2017-12-30] MEDS: NICOTINE 14 MG/24 HOURS TOPICAL PATCH TD SCH (11:08)
--- NOTE | 2017-12-30 11:27 | PN ---
S Progress Note (SOAP) Subjective: ALERT,IRRITABLE,ANXIOUS,INTERRUPTED SLEEP Objective: 12/30/17 11:26 Vital Signs Temperature 97.5 F L 12/30/17 10:07 Pulse Rate 107 H 12/30/17 10:07 Respiratory Rate 16 12/30/17 10:07 Blood Pressure 130/87 12/30/17 10:07 O2 Sat by Pulse Oximetry (%) Assessment: 12/30/17 11:26 WITHDRAWAL SYMPTOM Plan: CONTINUE DETOX,DISCHARGE IN AM
[2017-12-30] MEDS ORDERED: COLLOIDAL OATMEAL 1 BAR EACH TP PRN (18:08)
[2017-12-30] MEDS: chlordiazePOXIDE HCL 10 MG CAPSULE PO SCH (22:18)
[2017-12-30] MEDS: THIAMINE HCL 100 MG TABLET (FP) PO SCH (22:18)
[2017-12-30] MEDS: MELATONIN 5 MG TABLETS PO PRN (22:19)
[2017-12-31] MEDS: chlordiazePOXIDE HCL 10 MG CAPSULE PO SCH (05:55)
--- NOTE | 2017-12-31 08:48 | PN ---
S Progress Note (SOAP) Subjective: ALERT,NO COMPLAINT Objective: 12/31/17 08:47 Vital Signs Temperature 97.7 F 12/31/17 06:00 Pulse Rate 71 12/31/17 06:00 Respiratory Rate 18 12/31/17 06:00 Blood Pressure 118/79 12/31/17 06:00 O2 Sat by Pulse Oximetry (%) Assessment: 12/31/17 08:47 DETOX COMPLETED,NO WITHDRAWAL SYMPTOM Plan: DISCHARGE TODAY,FOLLOW UP WITH AFTER CARE PROGRAM ARRANGEMENT
--- NOTE | 2017-12-31 08:51 | DS ---
[facility] Detox Discharge Summary Admission Date: 12/27/17 Discharge Date: 12/31/17 - History Present History: Alcohol Dependence Additional Comments: FOLLOW UP WITH AFTER CARE PROGRAM ARRANGEMENT Pertinent Past History: NICOTINE DEPENDENCE GLAUCOMA - Physical Exam Results Vital Signs: Vital Signs Temperature 97.7 F 12/31/17 06:00 Pulse Rate 71 12/31/17 06:00 Respiratory Rate 18 12/31/17 06:00 Blood Pressure 118/79 12/31/17 06:00 O2 Sat by Pulse Oximetry (%) Pertinent Admission Physical Exam Findings: WITHDRAWAL SIGNS AND SYMPTOM Vital Signs Temperature 97.7 F 12/31/17 06:00 Pulse Rate 71 12/31/17 06:00 Respiratory Rate 18 12/31/17 06:00 Blood Pressure 118/79 12/31/17 06:00 O2 Sat by Pulse Oximetry (%) Laboratory Last Values WBC 7.2 K/mm3 (4.0-10.0) 12/28/17 07:30 RBC 4.26 M/mm3 (4.00-5.60) 12/28/17 07:30 Hgb 13.1 GM/dL (11.7-16.9) 12/28/17 07:30 Hct 39.0 % (35.4-49) 12/28/17 07:30 MCV 91.6 fl (80-96) 12/28/17 07:30 MCH 30.8 pg (25.7-33.7) 12/28/17 07:30 MCHC 33.7 g/dl (32.0-35.9) 12/28/17 07:30 RDW 13.8 % (11.9-15.9) 12/28/17 07:30 Plt Count 157 K/MM3 (134-434) 12/28/17 07:30 MPV 8.9 fl (7.5-11.1) 12/28/17 07:30 Sodium 144 mmol/L (136-145) 12/28/17 07:30 Potassium 4.2 mmol/L (3.5-5.1) D 12/28/17 07:30 Chloride 107 mmol/L (98-107) 12/28/17 07:30 Carbon Dioxide 27 mmol/L (21-32) 12/28/17 07:30 Anion Gap 10 (8-16) 12/28/17 07:30 BUN 14 mg/dL (7-18) D 12/28/17 07:30 Creatinine 0.7 mg/dL (0.7-1.3) 12/28/17 07:30 Creat Clearance w eGFR > 60 (>60) 12/28/17 07:30 Random Glucose 96 mg/dL (74-106) 12/28/17 07:30 Calcium 8.4 mg/dL (8.5-10.1) L 12/28/17 07:30 Total Bilirubin 0.5 mg/dL (0.2-1.0) D 12/28/17 07:30 AST 35 U/L (15-37) D 12/28/17 07:30 ALT 29 U/L (12-78) D 12/28/17 07:30 Alkaline Phosphatase 74 U/L (45-117) 12/28/17 07:30 Total Protein 6.8 g/dl (6.4-8.2) 12/28/17 07:30 Albumin 3.6 g/dl (3.4-5.0) 12/28/17 07:30 Urine Color Ltyellow 12/27/17 23:20 Urine Appearance Clear 12/27/17 23:20 Urine pH 6.0 (5.0-8.0) D 12/27/17 23:20 Ur Specific [place] 1.012 (1.001-1.035) 12/27/17 23:20 Urine Protein Negative (NEGATIVE) 12/27/17 23:20 Urine Glucose (UA) Negative (NEGATIVE) 12/27/17 23:20 Urine Ketones Negative (NEGATIVE) 12/27/17 23:20 Urine Blood Negative (NEGATIVE) 12/27/17 23:20 Urine Nitrite Negative (NEGATIVE) 12/27/17 23:20 Urine Bilirubin Negative (<2.0 mg/dL) 12/27/17 23:20 Urine Urobilinogen 2.0 mg/dL (0.2-1.0) 12/27/17 23:20 Ur Leukocyte Esterase Negative (NEGATIVE) 12/27/17 23:20 RPR Titer Nonreactive (NONREACTIVE) 12/28/17 07:30 HIV 1&2 Antibody Screen Negative 12/28/17 07:30 HIV P24 Antigen Negative 12/28/17 07:30 - Treatment Hospital Course: Detox Protocol Followed, Detoxed Safely, Responded well, Discharged Condition Good Patient has Accepted a Rehab Referral to: [facility] - Medication Discharge Medications: Ambulatory Orders NK [No Known Home Medication] 03/10/17 - Diagnosis (1) Alcohol dependence with uncomplicated withdrawal Current Visit: Yes Status: Acute (2) Nicotine dependence Current Visit: Yes Status: Chronic Qualifiers: Nicotine product type: cigarettes Substance use status: in withdrawal Qualified Code(s): F17.213 - Nicotine dependence, cigarettes, with withdrawal (3) Glaucoma Current Visit: Yes Status: Chronic Qualifiers: Glaucoma type: unspecified Laterality: bilateral Qualified Code(s): H40.9 - Unspecified glaucoma - AMA Did Patient Leave Against Medical Advice: No
[2017-12-31 10:30] VITALS: BP 126/82; PULSE 109; TEMP 96.1
== END 2017-12-31 01:05 | disposition home or self-care (01) | DRG 775 ==
LOC: YASAS 19:46 → Y6N 23:03
PROVIDERS: ADMIT Internal Medicine; ATTEND Internal Medicine
PROC: HZ2ZZZZ Detoxification Services for Substance Abuse Treatment (ICD-10-PCS; principal; 2017-12-27)
DX: F10.230 Alcohol dependence with withdrawal, uncomplicated (principal); F17.213 Nicotine dependence, cigarettes, with withdrawal; F32.9 Major depressive disorder, single episode, unspecified; H40.9 Unspecified glaucoma; Z86.69 Personal history of other diseases of the nervous system and sense organs; R03.0 Elevated blood-pressure reading, without diagnosis of hypertension
CPT/HCPCS: 36415; 80053; 81003; 85027; 86593; 87389; 93005; 93010

== ENCOUNTER 2018-09-22 19:24 | Inpatient (IN) | payer OTHER ==
[2018-09-22 19:51] VITALS: BMI 22.7
--- NOTE | 2018-09-22 20:21 | HP ---
CIWA Score Nausea/Vomitin-Mild Nausea/No Vomiting Muscle Tremors: 4-Moderate,w/Arms Extend Anxiety: 4-Mod. Anxious/Guarded Agitation: 1-Slight > Activity Paroxysmal Sweats: 1-Minimal Palms Moist Orientation: 1-Uncertain about Date Tacttile Disturbances: 0-None Auditory Disturbances: 0-None Visual Disturbances: 3-Moderate Sensitivity Headache: 3-Moderate CIWA-Ar Total Score: 18 - Admission Criteria OASAS Guidelines: Admission for Medically Managed Detox: Requires at least one of the followin. CIWA greater than 12 2. Seizures within the past 24 hours 3. Delirium tremens within the past 24 hours 4. Hallucinations within the past 24 hours 5. Acute intervention needed for co occurring medical disorder 6. Acute intervention needed for co occurring psychiatric disorder 7. Severe withdrawal that cannot be handled at a lower level of care (continued vomiting, continued diarrhea, abnormal vital signs) requiring intravenous medication and/or fluids 8. Patient presents the following: CIWA greater than 12, Seizures, delirium tremens or hallucinations in the past 12 hours Admission Criteria Met: Admission criteria met Admission ROS [facility] - HPI Allergies/Adverse Reactions: Allergies Allergy/AdvReac Type Severity Reaction Status Date / Time No Known Allergies Allergy Verified 03/10/18 14:23 History of Present Illness: PATIENT HERE REQUESTING DETOX FROM ETOH USE , REPORTS 1 PINT /DAY , REPORTS WITHDRAWAL SEIZURES , NAUSEA , TREMORS , SWEATING , SENSITIVITY TO LIGHTS, BLACKOUTS, DENIES RECENT FALLS , PRIOR VISIT AT THIS FACILITY march 2018 . LATEST USE TODAY , CURRENT DEVANG 0.308 pmhx ; GLAUCOMA PSHX ; DENIES PSYCH HX DENIES Exam Limitations: Clinical Condition, Intoxication - Ebola screening Have you traveled outside of the country in the last 21 days: No (N) Have you had contact with anyone from an Ebola affected area: No Have you been sick,other than usual withdrawal symptoms: No Do you have a fever: No - Review of Systems Constitutional: See HPI EENT: reports: See HPI Respiratory: reports: No Symptoms reported Cardiac: reports: No Symptoms Reported GI: reports: No Symptoms Reported : reports: No Symptoms Reported Musculoskeletal: reports: No Symptoms Reported Integumentary: reports: No Symptoms Reported Neuro: reports: See HPI Psychiatric: reports: Orientated x3, Anxious Patient History - Patient Medical History Hx Anemia: No Hx Asthma: No Hx Chronic Obstructive Pulmonary Disease (COPD): No Hx Cancer: No Hx Cardiac Disorders: No Hx Congestive Heart Failure: No Hx Hypertension: No Hx Hypercholesterolemia: No Hx Pacemaker: No HX Cerebrovascular Accident: No Hx Seizures: Yes (ALCOHOL RELATED SEIZURE 2016) Hx Dementia: No Hx Diabetes: No Hx Gastrointestinal Disorders: No Hx Liver Disease: No Hx Genitourinary Disorders: No Hx Sexually Transmitted Disorders: No Hx Renal Disease (ESRD): No Hx Thyroid Disease: No Hx Human Immunodeficiency Virus (HIV): No Hx Hepatitis C: No Hx Depression: No Hx Suicide Attempt: No Hx Bipolar Disorder: No Hx Schizophrenia: No - Patient Surgical History Past Surgical History: Yes Hx Neurologic Surgery: No Hx Cataract Extraction: No Hx Cardiac Surgery: No Hx Lung Surgery: No Hx Breast Surgery: No Hx Breast Biopsy: No Hx Abdominal Surgery: No Hx Appendectomy: Yes (age 14) Hx Cholecystectomy: No Hx Genitourinary Surgery: No Hx Section: No Hx Orthopedic Surgery: No Anesthesia Reaction: No - PPD History Date: 04/24/17 Results: 0 mm - Smoking Cessation Smoking history: Current every day smoker Have you smoked in the past 12 months: Yes Aproximately how many cigarettes per day: 10 Cigars Per Day: 0 Hx Chewing Tobacco Use: No Initiated information on smoking cessation: No Family Disease History - Family Disease History Family Disease History: Other: Father (no contact), Brother (Alcoholic/ suicidal), Sister (no contact) Admission Physical Exam [facility] - Vital Signs Vital Signs: Vital Signs - 24 hr 09/22/18 19:50 Temperature 97.1 F L Pulse Rate 81 Respiratory 16 Rate Blood Pressure 121/71 - Physical General Appearance: Yes: Disheveled, Alcohol on Breath, Intoxicated, Tremorous, Anxious HEENTM: Yes: Hearing grossly Normal, Normocephalic, Normal Voice, Photophobia Respiratory: Yes: Chest Non-Tender, Lungs Clear, Normal Breath Sounds Neck: Yes: No masses,lesions,Nodules, Trachea in good position Breast: Yes: Breast Exam Deferred Cardiology: Yes: Regular Rhythm, Regular Rate, S1, S2, Tachycardia Abdominal: Yes: Normal Bowel Sounds, Flat, Soft Genitourinary: Yes: Within Normal Limits Back: Yes: Normal Inspection Musculoskeletal: Yes: Within Normal Limits Extremities: Yes: Tremors, Erythema (NING COMPLEXION) Neurological: Yes: Motor Strength 5/5, Confused (INTOXICATED) Integumentary: Yes: Warm - Diagnostic (1) Alcohol intoxication Current Visit: No Status: Acute (2) Glaucoma Current Visit: No Status: Chronic Qualifiers: Glaucoma type: unspecified Laterality: bilateral Qualified Code(s): H40.9 - Unspecified glaucoma Comment: no treatment (3) Nicotine dependence Current Visit: No Status: Chronic Qualifiers: Nicotine product type: cigarettes BHS Breath Alcohol Content Breath Alcohol Content: 0.308 Urine Drug Screen - Results Drug Screen Negative: Yes
[2018-09-22] MEDS ORDERED: MENTHOL/PHENOL 1 EACH UD MM PRN (20:24)
[2018-09-22] MEDS ORDERED: P-EPHED 60MG/TRIPROLIDI 2.5MG TABLET PO PRN (20:24)
[2018-09-22] MEDS ORDERED: chlordiazePOXIDE HCL 25 MG CAPSULE PO PRN (20:24)
[2018-09-22] MEDS ORDERED: ACETAMINOPHEN 325 MG TABLET (FP) PO PRN (20:24)
[2018-09-22] MEDS ORDERED: MAGNESIUM HYDROX 2400MG/30ML ORAL SUSPENSION 30 ML CUP PO PRN (20:24)
[2018-09-22] MEDS ORDERED: NICOTINE POLACRILEX 2 MG GUM BC PRN (20:24)
[2018-09-22] MEDS ORDERED: IBUPROFEN 400 MG TABLET (FP) PO PRN (20:24)
[2018-09-22] MEDS ORDERED: MAG HYDROX/AL HYDROX/SIMETH 30 ML UNIT-DOSE CUP PO PRN (20:24)
[2018-09-22] MEDS ORDERED: MAGNESIUM CITRATE 300 ML BOTTLE PO PRN (20:24)
[2018-09-22] MEDS ORDERED: guaiFENesin/D-METHORPHAN HB 10 ML UNIT-DOSE CUPS PO PRN (20:24)
[2018-09-22] MEDS: chlordiazePOXIDE HCL 25 MG CAPSULE PO SCH (22:29)
[2018-09-22] MEDS: THIAMINE HCL 100 MG TABLET (FP) PO SCH (22:29)
[2018-09-23] MEDS: chlordiazePOXIDE HCL 25 MG CAPSULE PO SCH ×4 (05:07→22:38)
[2018-09-23 10:01] LABS: HEMATOCRIT 38.7 % (35.4-49); HEMOGLOBIN 13.2 GM/dL (11.7-16.9); MCH 32.5 pg (25.7-33.7); MEAN CELL VOLUME 95.4 fl (80-96); MEAN PLT VOLUME 8.4 fl (7.5-11.1); PLATELET COUNT 212 K/MM3 (134-434); RBC 4.06 M/mm3 (4.00-5.60); RDW 13.2 % (11.9-15.9); WHITE BLOOD COUNT 5.1 K/mm3 (4.0-10.0)
[2018-09-23] MEDS: PRENATAL VITAMINS W/ FOLIC ACID TABLET (FP) PO SCH (10:04)
[2018-09-23] MEDS: FOLIC ACID 1 MG TABLET (FP) PO SCH (10:04)
[2018-09-23 10:22] LABS: ALBUMIN 3.4 g/dl (3.4-5.0); ALK PHOS 65 U/L (45-117); ANION GAP 10 MMOL/L (8-16); BILIRUBIN,TOTAL 0.2 mg/dL (0.2-1); BLOOD UREA NITROGEN 9 mg/dL (7-18); CALCIUM 8.5 mg/dL (8.5-10.1); CHLORIDE 108 mmol/L (98-107); CO2 27 mmol/L (21-32); CREATININE 0.7 mg/dL (0.55-1.3); GLUCOSE,RANDOM 101 mg/dL (74-106); SGOT/AST 19 U/L (15-37); SGPT/ALT 27 U/L (13-61); SODIUM 145 mmol/L (136-145); TOT PROT 6.8 g/dl (6.4-8.2)
[2018-09-23] MEDS ORDERED: ONDANSETRON *ODT* 4 MG TABLET SL PRN (14:37)
--- NOTE | 2018-09-23 17:40 | PN ---
S CIWA - CIWA Score Nausea/Vomitin Muscle Tremors: 4-Moderate,w/Arms Extend Anxiety: 0-No Anxiety, at Ease Agitation: 0-Normal Activity Paroxysmal Sweats: No Perspiration Orientation: 2-Disoriented Date<2 days Tacttile Disturbances: 2-Mild Itch/Numbness/Burn Auditory Disturbances: 0-None Visual Disturbances: 0-None Headache: 0-None Present CIWA-Ar Total Score: 11 BHS Progress Note (SOAP) Subjective: Nausea, Tremors, Fatigue. Objective: PATIENT A & O X 2 (UNCERTAIN ABOUT CURRENT DAY / DATE). PATIENT OBSERVED AMBULATING ON UNIT. IN NO ACUTE DISTRESS. 09/23/18 17:37 Vital Signs Temperature 99.7 F H 09/23/18 13:17 Pulse Rate 98 H 09/23/18 15:30 Respiratory Rate 18 09/23/18 15:30 Blood Pressure 134/87 09/23/18 13:17 O2 Sat by Pulse Oximetry (%) Laboratory Tests 09/23/18 09/23/18 09/23/18 07:00 07:00 08:32 WBC 5.1 RBC 4.06 Hgb 13.2 Hct 38.7 MCV 95.4 MCH 32.5 MCHC 34.0 RDW 13.2 Plt Count 212 D MPV 8.4 Sodium 145 Potassium 4.0 Chloride 108 H Carbon Dioxide 27 Anion Gap 10 BUN 9 Creatinine 0.7 Creat Clearance w eGFR > 60 Random Glucose 101 Calcium 8.5 Total Bilirubin 0.2 AST 19 ALT 27 Alkaline Phosphatase 65 Total Protein 6.8 Albumin 3.4 RPR Titer Nonreactive LABS NOTED. Assessment: 09/23/18 17:38 WITHDRAWAL SYMPTOMS. Plan: CONTINUE DETOX. PRN ZOFRAN SL FOR NAUSEA. INCREASE DAILY PO FLUID INTAKE. ENCOURAGE AMBULATION.
[2018-09-23] MEDS: THIAMINE HCL 100 MG TABLET (FP) PO SCH (22:38)
[2018-09-24] MEDS: chlordiazePOXIDE HCL 25 MG CAPSULE PO SCH ×3 (05:39→17:53)
[2018-09-24] MEDS: FOLIC ACID 1 MG TABLET (FP) PO SCH (10:08)
[2018-09-24] MEDS: PRENATAL VITAMINS W/ FOLIC ACID TABLET (FP) PO SCH (10:08)
--- NOTE | 2018-09-24 15:18 | PN ---
S CIWA - CIWA Score Nausea/Vomitin Muscle Tremors: 3 Anxiety: 0-No Anxiety, at Ease Agitation: 0-Normal Activity Paroxysmal Sweats: No Perspiration Orientation: 0-Oriented Tacttile Disturbances: 2-Mild Itch/Numbness/Burn Auditory Disturbances: 0-None Visual Disturbances: 2-Mild Sensitivity Headache: 0-None Present CIWA-Ar Total Score: 10 BHS Progress Note (SOAP) Subjective: Nausea, Tremors, Fatigue. Objective: PATIENT A & O X 3. IN NO ACUTE DISTRESS. 09/24/18 15:16 Vital Signs Temperature 98.6 F 09/24/18 13:55 Pulse Rate 100 H 09/24/18 13:55 Respiratory Rate 18 09/24/18 13:55 Blood Pressure 137/94 09/24/18 13:55 O2 Sat by Pulse Oximetry (%) Laboratory Tests 09/23/18 09/23/18 09/23/18 07:00 07:00 08:32 WBC 5.1 RBC 4.06 Hgb 13.2 Hct 38.7 MCV 95.4 MCH 32.5 MCHC 34.0 RDW 13.2 Plt Count 212 D MPV 8.4 Sodium 145 Potassium 4.0 Chloride 108 H Carbon Dioxide 27 Anion Gap 10 BUN 9 Creatinine 0.7 Creat Clearance w eGFR > 60 Random Glucose 101 Calcium 8.5 Total Bilirubin 0.2 AST 19 ALT 27 Alkaline Phosphatase 65 Total Protein 6.8 Albumin 3.4 RPR Titer Nonreactive LABS NOTED. Assessment: 09/24/18 15:16 WITHDRAWAL SYMPTOMS. Plan: CONTINUE DETOX. INCREASE DAILY PO FLUID INTAKE. ENCOURAGE AMBULATION.
[2018-09-24] MEDS: chlordiazePOXIDE 5 MG CAPSULE PO SCH (22:44)
[2018-09-24] MEDS: THIAMINE HCL 100 MG TABLET (FP) PO SCH (22:44)
[2018-09-25] MEDS: chlordiazePOXIDE 5 MG CAPSULE PO SCH ×3 (05:38→17:16)
[2018-09-25] MEDS: FOLIC ACID 1 MG TABLET (FP) PO SCH (10:25)
[2018-09-25] MEDS: PRENATAL VITAMINS W/ FOLIC ACID TABLET (FP) PO SCH (10:25)
--- NOTE | 2018-09-25 17:02 | PN ---
S Progress Note (SOAP) Subjective: Tremor, nausea, interrupted sleep Objective: 09/25/18 17:01 Last Vital Signs Temp Pulse Resp BP Pulse Ox 98.1 F 96 H 18 125/88 09/25/18 10:00 09/25/18 10:00 09/25/18 10:00 09/25/18 10:00 Laboratory Tests 09/23/18 09/23/18 09/23/18 07:00 07:00 08:32 WBC 5.1 RBC 4.06 Hgb 13.2 Hct 38.7 MCV 95.4 MCH 32.5 MCHC 34.0 RDW 13.2 Plt Count 212 D MPV 8.4 Sodium 145 Potassium 4.0 Chloride 108 H Carbon Dioxide 27 Anion Gap 10 BUN 9 Creatinine 0.7 Creat Clearance w eGFR > 60 Random Glucose 101 Calcium 8.5 Total Bilirubin 0.2 AST 19 ALT 27 Alkaline Phosphatase 65 Total Protein 6.8 Albumin 3.4 RPR Titer Nonreactive Labs reviewed Assessment: 09/25/18 17:01 Withdrawal symptoms Plan: Continue detox Encouraged PO water intake
[2018-09-25] MEDS: chlordiazePOXIDE HCL 10 MG CAPSULE PO SCH (22:16)
[2018-09-25] MEDS: THIAMINE HCL 100 MG TABLET (FP) PO SCH (22:16)
[2018-09-25] MEDS: MELATONIN 5 MG TABLETS PO PRN (22:17)
[2018-09-26] MEDS: chlordiazePOXIDE HCL 10 MG CAPSULE PO SCH ×3 (05:31→17:23)
[2018-09-26] MEDS: PRENATAL VITAMINS W/ FOLIC ACID TABLET (FP) PO SCH (10:20)
[2018-09-26] MEDS: FOLIC ACID 1 MG TABLET (FP) PO SCH (10:55)
--- NOTE | 2018-09-26 14:12 | PN ---
BHS Progress Note (SOAP) Subjective: feeling better less tremor tolerated food and fluid better mild sweating otherwise ok Objective: 09/26/18 14:08 Vital Signs Temperature 96 F L 09/26/18 09:16 Pulse Rate 88 09/26/18 09:16 Respiratory Rate 20 09/26/18 09:16 Blood Pressure 129/83 09/26/18 09:16 O2 Sat by Pulse Oximetry (%) Laboratory Last Values WBC 5.1 K/mm3 (4.0-10.0) 09/23/18 08:32 RBC 4.06 M/mm3 (4.00-5.60) 09/23/18 08:32 Hgb 13.2 GM/dL (11.7-16.9) 09/23/18 08:32 Hct 38.7 % (35.4-49) 09/23/18 08:32 MCV 95.4 fl (80-96) 09/23/18 08:32 MCH 32.5 pg (25.7-33.7) 09/23/18 08:32 MCHC 34.0 g/dl (32.0-35.9) 09/23/18 08:32 RDW 13.2 % (11.9-15.9) 09/23/18 08:32 Plt Count 212 K/MM3 (134-434) D 09/23/18 08:32 MPV 8.4 fl (7.5-11.1) 09/23/18 08:32 Sodium 145 mmol/L (136-145) 09/23/18 07:00 Potassium 4.0 mmol/L (3.5-5.1) 09/23/18 07:00 Chloride 108 mmol/L (98-107) H 09/23/18 07:00 Carbon Dioxide 27 mmol/L (21-32) 09/23/18 07:00 Anion Gap 10 MMOL/L (8-16) 09/23/18 07:00 BUN 9 mg/dL (7-18) 09/23/18 07:00 Creatinine 0.7 mg/dL (0.55-1.3) 09/23/18 07:00 Creat Clearance w eGFR > 60 (>60) 09/23/18 07:00 Random Glucose 101 mg/dL (74-106) 09/23/18 07:00 Calcium 8.5 mg/dL (8.5-10.1) 09/23/18 07:00 Total Bilirubin 0.2 mg/dL (0.2-1) 09/23/18 07:00 AST 19 U/L (15-37) 09/23/18 07:00 ALT 27 U/L (13-61) 09/23/18 07:00 Alkaline Phosphatase 65 U/L (45-117) 09/23/18 07:00 Total Protein 6.8 g/dl (6.4-8.2) 09/23/18 07:00 Albumin 3.4 g/dl (3.4-5.0) 09/23/18 07:00 RPR Titer Nonreactive (NONREACTIVE) 09/23/18 07:00 lab noted Assessment: 09/26/18 14:09 withdrawal sx Plan: continue detox patient completed detox regimen today [facility] due to extra ordinary cold weather condition the patient is willing to follow up aftercare tomorrow 09/27/18
[2018-09-26] MEDS: MELATONIN 5 MG TABLETS PO PRN (22:13)
[2018-09-26] MEDS: THIAMINE HCL 100 MG TABLET (FP) PO SCH (22:13)
[2018-09-27 06:15] VITALS: BP 121/72; PULSE 64; TEMP 96.6
[2018-09-27] MEDS: PRENATAL VITAMINS W/ FOLIC ACID TABLET (FP) PO SCH (10:11)
[2018-09-27] MEDS: FOLIC ACID 1 MG TABLET (FP) PO SCH (10:11)
--- NOTE | 2018-09-27 13:35 | DS ---
[facility] Detox Discharge Summary Admission Date: 09/22/18 Discharge Date: 09/27/18 - History Present History: Alcohol Dependence (52) Additional Comments: 52 years old male admitted on 09/22/18 for alcohol withdrawal stabilization completed detox regimen aftercare [facility] - Physical Exam Results Vital Signs: Vital Signs Temperature 96.6 F L 09/27/18 06:14 Pulse Rate 64 09/27/18 06:14 Respiratory Rate 18 09/27/18 06:14 Blood Pressure 121/72 09/27/18 06:14 O2 Sat by Pulse Oximetry (%) Pertinent Admission Physical Exam Findings: alcohol withdrawal sx Laboratory Last Values WBC 5.1 K/mm3 (4.0-10.0) 09/23/18 08:32 RBC 4.06 M/mm3 (4.00-5.60) 09/23/18 08:32 Hgb 13.2 GM/dL (11.7-16.9) 09/23/18 08:32 Hct 38.7 % (35.4-49) 09/23/18 08:32 MCV 95.4 fl (80-96) 09/23/18 08:32 MCH 32.5 pg (25.7-33.7) 09/23/18 08:32 MCHC 34.0 g/dl (32.0-35.9) 09/23/18 08:32 RDW 13.2 % (11.9-15.9) 09/23/18 08:32 Plt Count 212 K/MM3 (134-434) D 09/23/18 08:32 MPV 8.4 fl (7.5-11.1) 09/23/18 08:32 Sodium 145 mmol/L (136-145) 09/23/18 07:00 Potassium 4.0 mmol/L (3.5-5.1) 09/23/18 07:00 Chloride 108 mmol/L (98-107) H 09/23/18 07:00 Carbon Dioxide 27 mmol/L (21-32) 09/23/18 07:00 Anion Gap 10 MMOL/L (8-16) 09/23/18 07:00 BUN 9 mg/dL (7-18) 09/23/18 07:00 Creatinine 0.7 mg/dL (0.55-1.3) 09/23/18 07:00 Creat Clearance w eGFR > 60 (>60) 09/23/18 07:00 Random Glucose 101 mg/dL (74-106) 09/23/18 07:00 Calcium 8.5 mg/dL (8.5-10.1) 09/23/18 07:00 Total Bilirubin 0.2 mg/dL (0.2-1) 09/23/18 07:00 AST 19 U/L (15-37) 09/23/18 07:00 ALT 27 U/L (13-61) 09/23/18 07:00 Alkaline Phosphatase 65 U/L (45-117) 09/23/18 07:00 Total Protein 6.8 g/dl (6.4-8.2) 09/23/18 07:00 Albumin 3.4 g/dl (3.4-5.0) 09/23/18 07:00 RPR Titer Nonreactive (NONREACTIVE) 09/23/18 07:00 lab noted - Treatment Hospital Course: Detox Protocol Followed, Detoxed Safely, Responded well, Discharged Condition Good, Rehab Referral Accepted Patient has Accepted a Rehab Referral to: [facility] - Medication Discharge Medications: Ambulatory Orders Folic Acid - 1 mg PO DAILY 03/10/18 - Diagnosis (1) Alcohol dependence with uncomplicated withdrawal Status: Acute (2) Nicotine dependence Status: Acute Qualifiers: Nicotine product type: cigarettes Substance use status: in withdrawal Qualified Code(s): F17.213 - Nicotine dependence, cigarettes, with withdrawal - AMA Did Patient Leave Against Medical Advice: No
== END 2018-09-27 10:20 | disposition home or self-care (01) | DRG 775 ==
LOC: YASAS 19:24 → Y3N 21:47
PROVIDERS: ADMIT Neuromusculoskeletal Medicine & OMM; ATTEND Neuromusculoskeletal Medicine & OMM
PROC: HZ2ZZZZ Detoxification Services for Substance Abuse Treatment (ICD-10-PCS; principal; 2018-09-22)
DX: F10.230 Alcohol dependence with withdrawal, uncomplicated (principal); F10.220 Alcohol dependence with intoxication, uncomplicated; F17.210 Nicotine dependence, cigarettes, uncomplicated; H40.9 Unspecified glaucoma; Z86.69 Personal history of other diseases of the nervous system and sense organs
CPT/HCPCS: 36415; 80053; 85027; 86593

== ENCOUNTER 2019-04-10 14:26 | Inpatient (IN) | payer OTHER ==
[2019-04-10 17:01] VITALS: BMI 22.8
--- NOTE | 2019-04-10 18:03 | HP ---
"CIWA Score Nausea/Vomitin-Mild Nausea/No Vomiting Muscle Tremors: 3 Anxiety: 1-Mildly Anxious Agitation: 3 Paroxysmal Sweats: 3 (Increased facial moisture) Orientation: 0-Oriented Tacttile Disturbances: 0-None Auditory Disturbances: 0-None Visual Disturbances: 0-None Headache: 0-None Present CIWA-Ar Total Score: 11 - Admission Criteria OASAS Guidelines: Admission for Medically Managed Detox: Requires at least one of the followin. CIWA greater than 12 2. Seizures within the past 24 hours 3. Delirium tremens within the past 24 hours 4. Hallucinations within the past 24 hours 5. Acute intervention needed for co occurring medical disorder 6. Acute intervention needed for co occurring psychiatric disorder 7. Severe withdrawal that cannot be handled at a lower level of care (continued vomiting, continued diarrhea, abnormal vital signs) requiring intravenous medication and/or fluids 8. Patient presents the following: Acute intervention needed for co-occurring med or psych disorder (Acute intoxication. DEVANG = 0.267 down to 0.184) Admission Criteria Met: Admission criteria met Admission ROS [facility] Chief Complaint: Here because I think I had too much vodka. Allergies/Adverse Reactions: Allergies Allergy/AdvReac Type Severity Reaction Status Date / Time No Known Allergies Allergy Verified 04/10/19 16:52 History of Present Illness: 53 yo with alcohol intoxication requesting detox. Alcohol use since age 13. Currently drinking 1-2 pints daily. Nicotine use since age 13. Currently smokes 5-15 cig/day. States when stops drinking, gets shakes and vomits. Utox: Neg: DEVANG 0.267 on arrival and now down to 0.184 Last seizure 2 years ago. Last blackout a couple months ago. Longest sobriety 3 months which was many years ago. States: Unemployed. Homeless. PMHx: Glaucoma (States increased light sensitivity r/t glaucoma x years. Not on eye drops. No recent f/u with eye Dr.) MHHx: Denies depression or other MH problems. Denies thoughts of harming self or others. Search Terms: Min Romeo, 1965 Search Date: 04/10/2019 05:56:54 PM The Drug Utilization Report below displays all of the controlled substance prescriptions, if any, that your patient has filled in the last twelve months. The information displayed on this report is compiled from pharmacy submissions to the Department, and accurately reflects the information as submitted by the pharmacies. This report was requested by: Hedy Meza | Reference #: [id number] There are no results for the search terms that you entered. Exam Limitations: No Limitations - Ebola screening Have you traveled outside of the country in the last 21 days: No Have you had contact with anyone from an Ebola affected area: No Have you been sick,other than usual withdrawal symptoms: No (Denies recent measles exposure) Do you have a fever: No - Review of Systems Constitutional: Diaphoresis EENT: reports: Blurred Vision, Other (Glaucoma w/ increased light sensitivity) Respiratory: reports: No Symptoms reported Cardiac: reports: No Symptoms Reported GI: reports: Nausea : reports: No Symptoms Reported Musculoskeletal: reports: No Symptoms Reported Neuro: reports: Tremors Endocrine: reports: No Symptoms Reported Hematology: reports: No Symptoms Reported Psychiatric: reports: Judgement Intact, Orientated x3, Agitated, Anxious Patient History - Patient Medical History Hx Anemia: No Hx Asthma: No Hx Chronic Obstructive Pulmonary Disease (COPD): No Hx Cancer: No Hx Cardiac Disorders: No Hx Congestive Heart Failure: No Hx Hypertension: No Hx Hypercholesterolemia: No Hx Pacemaker: No HX Cerebrovascular Accident: No Hx Seizures: No Hx Dementia: No Hx Diabetes: No Hx Gastrointestinal Disorders: No Hx Liver Disease: No Hx Genitourinary Disorders: No Hx Sexually Transmitted Disorders: No Hx Renal Disease (ESRD): No Hx Thyroid Disease: No Hx Human Immunodeficiency Virus (HIV): No Hx Hepatitis C: No Hx Depression: No Hx Suicide Attempt: No Hx Bipolar Disorder: No Hx Schizophrenia: No - Patient Surgical History Past Surgical History: Yes Hx Neurologic Surgery: No Hx Cataract Extraction: No Hx Cardiac Surgery: No Hx Lung Surgery: No Hx Breast Surgery: No Hx Breast Biopsy: No Hx Abdominal Surgery: No Hx Appendectomy: Yes (age 14) Hx Cholecystectomy: No Hx Genitourinary Surgery: No Hx Section: No Hx Orthopedic Surgery: No Anesthesia Reaction: No - PPD History Previous Implant?: Yes Documented Results: Negative w/proof Implanted On Prior R Admission?: Yes Date: 09/24/18 Results: 0 mm PPD to be Administered?: No - Smoking Cessation Smoking history: Current every day smoker Have you smoked in the past 12 months: Yes Aproximately how many cigarettes per day: 7 Cigars Per Day: 0 Hx Chewing Tobacco Use: No Initiated information on smoking cessation: Yes 'Breaking Loose' booklet given: 04/10/19 - Substance & Tx. History Hx Alcohol Use: Yes Hx Substance Use: Yes Substance Use Type: Alcohol Hx Substance Use Treatment: Yes (DETOX, REHAB, OUT-PATIENT) - Substances abused Alcohol Substance route: Oral Frequency: Daily Amount used: 1 pint of vodka, 1 40 ounce beer Age of first use: 13 Date of last use: 04/10/19 Family Disease History - Family Disease History Family Disease History: Other: Father (no contact), Brother (Alcoholic/ suicidal), Sister (no contact) Admission Physical Exam S - Vital Signs Vital Signs: Vital Signs - 24 hr 04/10/19 16:55 Temperature 98.8 F Pulse Rate 101 H Respiratory 17 Rate Blood Pressure 127/92 - Physical General Appearance: Yes: Mild Distress, Alcohol on Breath, Intoxicated (DEVANG = 0.267), Tremorous, Sweating (Increased facial moisture), Anxious HEENTM: Yes: EOMI (Jerking movement of eyes upon lateral gaze), Hearing grossly Normal, Normocephalic, Normal Voice, JUAREZ, Pharynx Normal, Other (White coating on tongue.) Respiratory: Yes: Lungs Clear (O2 Sat = 97 %), Normal Breath Sounds, No Respiratory Distress Neck: Yes: No masses,lesions,Nodules, Supple Breast: Yes: Breast Exam Deferred Cardiology: Yes: Regular Rhythm, Regular Rate (HR: 96), S1, S2 Abdominal: Yes: Non Tender, Flat, Soft, Increased Bowel Sounds Genitourinary: Yes: Within Normal Limits Back: Yes: Normal Inspection Musculoskeletal: Yes: full range of Motion, Gait Steady Extremities: Yes: Normal Capillary Refill, Normal Range of Motion, Tremors ( Gross tremors w/ arms extended) Neurological: Yes: case planner II-XII NML intact (Jerking movement of eyes upon lateral gaze), Fully Oriented, Alert, Normal Response Integumentary: Yes: Normal Color, Warm, Other (Over-grown, curved, thickened, yellowish, flaky toenails) Lymphatic: Yes: Within Normal Limits - Diagnostic (1) Onychomycosis Current Visit: Yes Status: Chronic Comment: Toe nails (2) Alcohol dependence with uncomplicated withdrawal Current Visit: Yes Status: Acute (3) Alcohol intoxication Current Visit: Yes Status: Acute Qualifiers: Complication of substance-induced condition: uncomplicated Qualified Code(s ): F10.920 - Alcohol use, unspecified with intoxication, uncomplicated (4) Nicotine dependence Current Visit: Yes Status: Chronic Qualifiers: Nicotine product type: cigarettes Substance use status: in withdrawal Qualified Code(s): F17.213 - Nicotine dependence, cigarettes, with withdrawal (5) Light sensitivity Current Visit: Yes Status: Chronic (6) Nystagmus Current Visit: Yes Status: Acute Cleared for Admission [facility] - Detox or Rehab [facility] Level of Care: Medically Managed Detox Regimen/Protocol: Librium Claeared for Rehab Admission: No Inpatient Rehab Admission - Rehab Decision to Admit Inpatient rehab admission?: No"
[2019-04-10] MEDS ORDERED: MAG HYDROX/AL HYDROX/SIMETH 30 ML UNIT-DOSE CUP PO PRN (18:34)
[2019-04-10] MEDS ORDERED: IBUPROFEN 400 MG TABLET (FP) PO PRN (18:34)
[2019-04-10] MEDS ORDERED: MENTHOL/PHENOL 1 EACH UD MM PRN (18:34)
[2019-04-10] MEDS ORDERED: NICOTINE POLACRILEX 2 MG GUM BUC PRN (18:34)
[2019-04-10] MEDS ORDERED: METHOCARBAMOL 500 MG TABLET PO PRN (18:34)
[2019-04-10] MEDS ORDERED: ACETAMINOPHEN 325 MG TABLET (FP) PO PRN ×2 (18:34)
[2019-04-10] MEDS ORDERED: BISMUTH SUBSALICYLATE 524 MG/30 ML UD PO PRN (18:34)
[2019-04-10] MEDS ORDERED: MAGNESIUM CITRATE 300 ML BOTTLE PO PRN (18:34)
[2019-04-10] MEDS ORDERED: MAGNESIUM HYDROX 2400MG/30ML ORAL SUSPENSION 30 ML CUP PO PRN (18:34)
[2019-04-10] MEDS ORDERED: MELATONIN 5 MG TABLETS PO PRN (18:34)
[2019-04-10] MEDS: chlordiazePOXIDE HCL 25 MG CAPSULE PO PRN (20:11)
[2019-04-10] MEDS: THIAMINE HCL 100 MG TABLET (FP) PO SCH (23:35)
[2019-04-10] MEDS: chlordiazePOXIDE HCL 25 MG CAPSULE PO SCH (23:35)
[2019-04-11] MEDS: chlordiazePOXIDE HCL 25 MG CAPSULE PO SCH ×4 (05:37→23:01)
[2019-04-11] MEDS: NICOTINE 14 MG/24 HOURS TOPICAL PATCH TD SCH (10:57)
[2019-04-11] MEDS: PRENATAL VITAMINS W/ FOLIC ACID TABLET (FP) PO SCH (10:58)
[2019-04-11 11:01] LABS: HEMATOCRIT 43.3 % (35.4-49); HEMOGLOBIN 14.6 GM/dL (11.7-16.9); MCH 31.6 pg (25.7-33.7); MCHC 33.6 g/dl (32.0-35.9); MEAN PLT VOLUME 8.4 fl (7.5-11.1); PLATELET COUNT 154 K/MM3 (134-434); RBC 4.61 M/mm3 (4.00-5.60); RDW 13.7 % (11.9-15.9); WHITE BLOOD COUNT 5.3 K/mm3 (4.0-10.0)
[2019-04-11 11:12] LABS: BILIRUBIN,TOTAL 0.6 mg/dL (0.2-1); BLOOD UREA NITROGEN 7.7 mg/dL (7-18); CALCIUM 9.7 mg/dL (8.5-10.1); CREATININE 0.6 mg/dL (0.55-1.3); POTASSIUM 4.5 mmol/L (3.5-5.1)
--- NOTE | 2019-04-11 11:12 | PN ---
S CIWA - CIWA Score Nausea/Vomitin-No Nausea/No Vomiting Muscle Tremors: 3 Anxiety: 3 Agitation: 3 Paroxysmal Sweats: 3 Orientation: 0-Oriented Tacttile Disturbances: 0-None Auditory Disturbances: 0-None Visual Disturbances: 0-None Headache: 0-None Present CIWA-Ar Total Score: 12 BHS Progress Note (SOAP) Subjective: sweats shakes interrupted sleep body aches Objective: 04/11/19 11:13 Vital Signs Temperature 98.1 F 04/11/19 09:31 Pulse Rate 89 04/11/19 09:31 Respiratory Rate 17 04/11/19 09:31 Blood Pressure 152/109 H 04/11/19 09:31 O2 Sat by Pulse Oximetry (%) Laboratory Tests 04/11/19 04/11/19 07:00 07:00 WBC 5.3 RBC 4.61 Hgb 14.6 Hct 43.3 MCV 94.0 MCH 31.6 MCHC 33.6 RDW 13.7 Plt Count 154 D MPV 8.4 Sodium 140 Potassium 4.5 Chloride 103 Carbon Dioxide 32 Anion Gap 5 L BUN 7.7 Creatinine 0.6 Est GFR (CKD-EPI)AfAm 132.11 Est GFR (CKD-EPI)NonAf 113.99 Random Glucose 95 Calcium 9.7 Total Bilirubin 0.6 AST 43 H ALT 47 Alkaline Phosphatase 84 Total Protein 8.0 Albumin 4.0 aaox3 ambulating no acute distress hypertension noted; will repeat and order antihypertensive medication Assessment: 04/11/19 11:15 withdrawal sx Plan: continue detox increase fluids hctz 25mg x one then 12.5 daily norvasc 10mg
[2019-04-11] MEDS: chlordiazePOXIDE HCL 25 MG CAPSULE PO PRN (12:30)
[2019-04-11] MEDS ORDERED: HYDROCHLOROTHIAZIDE 25 MG TABLET (FP) PO ONE (14:15)
[2019-04-11] MEDS ORDERED: cloNIDine HCL 0.1 MG TABLET PO ONE (14:15)
[2019-04-11] MEDS ORDERED: amLODIPine BESYLATE 10 MG TABLET (FP) PO ONE (14:15)
--- NOTE | 2019-04-11 15:50 | EKG ---
Test Reason : Blood Pressure : / mmHG Vent. Rate : 086 BPM Atrial Rate : 086 BPM P-R Int : 158 ms QRS Dur : 104 ms QT Int : 388 ms P-R-T Axes : 063 -01 038 degrees QTc Int : 464 ms NORMAL SINUS RHYTHM POSSIBLE LEFT ATRIAL ENLARGEMENT INCOMPLETE RIGHT BUNDLE BRANCH BLOCK LEFT VENTRICULAR HYPERTROPHY SEPTAL INFARCT ABNORMAL ECG Confirmed by MD RAMONA, KUSHAL ([id number]) on 04/11/2019 3:50:07 PM Referred By: Confirmed By:KUSHAL GREENE MD
[2019-04-11] MEDS: THIAMINE HCL 100 MG TABLET (FP) PO SCH (23:01)
[2019-04-12] MEDS: chlordiazePOXIDE HCL 25 MG CAPSULE PO SCH ×2 (06:11→10:10)
[2019-04-12] MEDS ORDERED: amLODIPine BESYLATE 10 MG TABLET (FP) PO SCH (10:00)
[2019-04-12] MEDS ORDERED: HYDROCHLOROTHIAZIDE 12.5 MG CAPSULE (FP) PO SCH (10:00)
[2019-04-12] MEDS: NICOTINE 14 MG/24 HOURS TOPICAL PATCH TD SCH (10:10)
[2019-04-12] MEDS: PRENATAL VITAMINS W/ FOLIC ACID TABLET (FP) PO SCH (10:10)
--- NOTE | 2019-04-12 10:25 | PN ---
BHS CIWA - CIWA Score Nausea/Vomitin-No Nausea/No Vomiting Muscle Tremors: 2 Anxiety: 1-Mildly Anxious Agitation: 1-Slight > Activity Paroxysmal Sweats: 1-Minimal Palms Moist Orientation: 0-Oriented Tacttile Disturbances: 0-None Auditory Disturbances: 0-None Visual Disturbances: 0-None Headache: 0-None Present CIWA-Ar Total Score: 5 BHS Progress Note (SOAP) Subjective: sweats interrupted sleep body aches Objective: 04/12/19 10:25 Vital Signs Temperature 97.3 F L 04/12/19 09:47 Pulse Rate 87 04/12/19 09:47 Respiratory Rate 18 04/12/19 09:47 Blood Pressure 126/62 04/12/19 09:47 O2 Sat by Pulse Oximetry (%) Laboratory Tests 04/11/19 04/11/19 04/11/19 07:00 07:00 07:00 WBC 5.3 RBC 4.61 Hgb 14.6 Hct 43.3 MCV 94.0 MCH 31.6 MCHC 33.6 RDW 13.7 Plt Count 154 D MPV 8.4 Sodium 140 Potassium 4.5 Chloride 103 Carbon Dioxide 32 Anion Gap 5 L BUN 7.7 Creatinine 0.6 Est GFR (CKD-EPI)AfAm 132.11 Est GFR (CKD-EPI)NonAf 113.99 Random Glucose 95 Calcium 9.7 Total Bilirubin 0.6 AST 43 H ALT 47 Alkaline Phosphatase 84 Total Protein 8.0 Albumin 4.0 RPR Titer Nonreactive labs noted aaox3 ambulating no acute distress Assessment: 04/12/19 10:25 withdrawal sx Plan: continue detox increase fluids
[2019-04-12 13:44] VITALS: BP 125/78; PULSE 106; TEMP 97.7
--- NOTE | 2019-04-12 13:51 | DS ---
[facility] Detox Discharge Summary Admission Date: 04/10/19 Discharge Date: 04/12/19 - History Present History: Alcohol Dependence - Physical Exam Results Vital Signs: Vital Signs Temperature 97.7 F 04/12/19 13:43 Pulse Rate 106 H 04/12/19 13:43 Respiratory Rate 18 04/12/19 13:43 Blood Pressure 125/78 04/12/19 13:43 O2 Sat by Pulse Oximetry (%) Pertinent Admission Physical Exam Findings: pt now states he is feeling better and shows no s/s of withdrawals at this time. Last BP 125/60. - Treatment Hospital Course: Detox Protocol Followed, Detoxed Safely, Responded well, Discharged Condition Good, Rehab Referral Accepted Patient has Accepted a Rehab Referral to: referral provided. - Medication Discharge Medications: Ambulatory Orders NK [No Known Home Medication] 04/10/19 - Diagnosis (1) Alcohol dependence with uncomplicated withdrawal Current Visit: Yes Status: Chronic (2) Alcohol intoxication Current Visit: Yes Status: Acute Qualifiers: Complication of substance-induced condition: uncomplicated Qualified Code(s ): F10.920 - Alcohol use, unspecified with intoxication, uncomplicated (3) Nystagmus Current Visit: Yes Status: Acute (4) Nicotine dependence Current Visit: Yes Status: Chronic Qualifiers: Nicotine product type: cigarettes Substance use status: uncomplicated Qualified Code(s): F17.210 - Nicotine dependence, cigarettes, uncomplicated (5) Onychomycosis Current Visit: Yes Status: Chronic (6) Elevated blood pressure reading in office without diagnosis of hypertension Current Visit: No Status: Acute (7) Depression (emotion) Current Visit: No Status: Suspected Qualifiers: Depression Type: unspecified Qualified Code(s): F32.9 - Major depressive disorder, single episode, unspecified - AMA Did Patient Leave Against Medical Advice: No
[2019-04-13] MEDS ORDERED: chlordiazePOXIDE HCL 10 MG CAPSULE PO PRN
[2019-04-13] MEDS ORDERED: chlordiazePOXIDE HCL 10 MG CAPSULE PO SCH (05:00)
[2019-04-14] MEDS ORDERED: chlordiazePOXIDE HCL 10 MG CAPSULE PO SCH (05:00)
[2019-04-15] MEDS ORDERED: chlordiazePOXIDE HCL 10 MG CAPSULE PO ONE (05:00)
== END 2019-04-12 14:09 | disposition home or self-care (01) | DRG 775 ==
LOC: YASAS 14:26 → Y6N 19:12
PROVIDERS: ADMIT Surgery; ATTEND Surgery
PROC: HZ2ZZZZ Detoxification Services for Substance Abuse Treatment (ICD-10-PCS; principal; 2019-04-10)
DX: F10.230 Alcohol dependence with withdrawal, uncomplicated (principal); F10.220 Alcohol dependence with intoxication, uncomplicated; F17.210 Nicotine dependence, cigarettes, uncomplicated; F32.9 Major depressive disorder, single episode, unspecified; B35.1 Tinea unguium; H40.9 Unspecified glaucoma; H55.00 Unspecified nystagmus
CPT/HCPCS: 36415; 80053; 85027; 86593; 93005; 93010; J0735

== ENCOUNTER 2020-06-10 20:46 | Inpatient (IN) | payer OTHER ==
--- NOTE | 2020-06-10 23:55 | HP ---
CIWA Score Nausea/Vomitin Muscle Tremors: 4-Moderate,w/Arms Extend Anxiety: 4-Mod. Anxious/Guarded Agitation: 3 Paroxysmal Sweats: 2 Orientation: 0-Oriented Tacttile Disturbances: 0-None Auditory Disturbances: 0-None Visual Disturbances: 0-None Headache: 0-None Present CIWA-Ar Total Score: 15 - Admission Criteria OASAS Guidelines: Admission for Medically Managed Detox: Requires at least one of the followin. CIWA greater than 12 2. Seizures within the past 24 hours 3. Delirium tremens within the past 24 hours 4. Hallucinations within the past 24 hours 5. Acute intervention needed for co occurring medical disorder 6. Acute intervention needed for co occurring psychiatric disorder 7. Severe withdrawal that cannot be handled at a lower level of care (continued vomiting, continued diarrhea, abnormal vital signs) requiring intravenous medication and/or fluids 8. Admitting History and Physical - Smoking History Smoking history: Current every day smoker Have you smoked in the past 12 months: Yes Aproximately how many cigarettes per day: 7 - Alcohol/Substance Use Hx Alcohol Use: Yes Admission ROS [facility] - [facility] Chief Complaint: Alcohol withdrawal symptoms Allergies/Adverse Reactions: Allergies Allergy/AdvReac Type Severity Reaction Status Date / Time No Known Allergies Allergy Verified 04/10/19 16:52 History of Present Illness: 54 years old male with a long history of alcohol dependence is seeking admission to detox. His last admission was for the period 04/10/2019 - 04/12/2019 and he reports that his last detox was at [facility]. He drinks 3 pints Vodka oral daily. He denies medical history, psych. history and suicidal ideation at this time. He is unemployed, homeless and denies legal issues. 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 Exam Limitations: No Limitations - Ebola screening Have you traveled outside of the country in the last 21 days: No Have you had contact with anyone from an Ebola affected area: No Have you been sick,other than usual withdrawal symptoms: No Do you have a fever: No - Review of Systems Constitutional: Chills, Malaise, Night Sweats, Changes in sleep EENT: reports: No Symptoms Reported Respiratory: reports: No Symptoms reported Cardiac: reports: No Symptoms Reported GI: reports: Nausea, Poor Fluid Intake, Abdominal cramping : reports: No Symptoms Reported Musculoskeletal: reports: No Symptoms Reported Integumentary: reports: Dryness, Flushing Neuro: reports: Tremors Endocrine: reports: No Symptoms Reported Hematology: reports: No Symptoms Reported Psychiatric: reports: No Sypmtoms Reported, Mood/Affect Appropiate Other Systems: Reviewed and Negative Patient History - Patient Medical History Hx Anemia: No Hx Asthma: No Hx Chronic Obstructive Pulmonary Disease (COPD): No Hx Cancer: No Hx Cardiac Disorders: No Hx Congestive Heart Failure: No Hx Hypertension: No Hx Hypercholesterolemia: No Hx Pacemaker: No HX Cerebrovascular Accident: No Hx Seizures: No Hx Dementia: No Hx Diabetes: No Hx Gastrointestinal Disorders: No Hx Liver Disease: No Hx Genitourinary Disorders: No Hx Sexually Transmitted Disorders: No Hx Renal Disease (ESRD): No Hx Thyroid Disease: No Hx Human Immunodeficiency Virus (HIV): No (Negative ) Hx Hepatitis C: No Hx Depression: No Hx Suicide Attempt: No (Denies suicidal ideation at this time) Hx Bipolar Disorder: No Hx Schizophrenia: No - Patient Surgical History Past Surgical History: Yes Hx Neurologic Surgery: No Hx Cataract Extraction: No Hx Cardiac Surgery: No Hx Lung Surgery: No Hx Breast Surgery: No Hx Breast Biopsy: No Hx Abdominal Surgery: No Hx Appendectomy: Yes (age 14) Hx Cholecystectomy: No Hx Genitourinary Surgery: No Hx Section: No Hx Orthopedic Surgery: No Anesthesia Reaction: No - PPD History Previous Implant?: Yes Documented Results: Negative w/proof Implanted On Prior [facility] Admission?: Yes Date: 09/24/18 Results: 0 mm PPD to be Administered?: Yes - Reproductive History Patient is a Female of Child Bearing Age (11 -55 yrs old): No (Male) - Smoking Cessation Smoking history: Current every day smoker Have you smoked in the past 12 months: Yes Aproximately how many cigarettes per day: 3 Hx Chewing Tobacco Use: No Initiated information on smoking cessation: Yes 'Breaking Loose' booklet given: 06/11/20 - Substance & Tx. History Hx Alcohol Use: Yes Hx Substance Use: No Substance Use Type: Alcohol Hx Substance Use Treatment: Yes ([facility]) - Substances abused Alcohol Frequency: Daily Amount used: 3 pints Vodka Age of first use: 14 Date of last use: 06/10/20 Admission Physical Exam BHS - Physical General Appearance: Yes: Moderate Distress, Tremorous, Sweating, Anxious HEENTM: Yes: Within Normal Limits Respiratory: Yes: Lungs Clear, Normal Breath Sounds, No Respiratory Distress Neck: Yes: Within Normal Limits Breast: Yes: Breast Exam Deferred Cardiology: Yes: Tachycardia Abdominal: Yes: Normal Bowel Sounds Genitourinary: Yes: Within Normal Limits Back: Yes: Normal Inspection Musculoskeletal: Yes: Within Normal Limits Extremities: Yes: Tremors Neurological: Yes: Within Normal Limits Integumentary: Yes: Warm Lymphatic: Yes: Within Normal Limits - Diagnostic (1) Alcohol dependence with uncomplicated withdrawal Current Visit: Yes Status: Acute (2) Nicotine dependence Current Visit: Yes Status: Chronic Qualifiers: Nicotine product type: cigarettes Substance use status: uncomplicated Qualified Code(s): F17.210 - Nicotine dependence, cigarettes, uncomplicated Cleared for Admission [facility] - Detox or Rehab [facility] Level of Care: Medically Managed Detox Regimen/Protocol: Librium Claeared for Rehab Admission: No Breathalyzer - Breathalyzer Breathalyzer: 0.267 Urine Drug Screen - Test Device Lot number: [id number] Expiration date: 01/03/21 - Control Is test valid?: Yes - Results Drug screen NEGATIVE: Yes Inpatient Rehab Admission - Rehab Decision to Admit Inpatient rehab admission?: No
[2020-06-11] MEDS ORDERED: NICOTINE POLACRILEX 2 MG GUM BUC PRN (00:20)
[2020-06-11] MEDS ORDERED: ACETAMINOPHEN 325 MG TABLET (FP) PO PRN ×2 (00:20)
[2020-06-11] MEDS ORDERED: chlordiazePOXIDE HCL 25 MG CAPSULE PO PRN (00:20)
[2020-06-11] MEDS ORDERED: MAGNESIUM HYDROX 2400MG/30ML ORAL SUSPENSION 30 ML CUP PO PRN (00:20)
[2020-06-11] MEDS ORDERED: ONDANSETRON *ODT* 4 MG TABLET SL PRN (00:20)
[2020-06-11] MEDS ORDERED: METHOCARBAMOL 500 MG TABLET PO PRN (00:20)
[2020-06-11] MEDS ORDERED: IBUPROFEN 400 MG TABLET (FP) PO PRN (00:20)
[2020-06-11] MEDS ORDERED: MAGNESIUM CITRATE 300 ML BOTTLE PO PRN (00:20)
[2020-06-11] MEDS ORDERED: MAG HYDROX/AL HYDROX/SIMETH 30 ML UNIT-DOSE CUP PO PRN (00:20)
[2020-06-11] MEDS ORDERED: MENTHOL/PHENOL 1 EACH UD MM PRN (00:20)
[2020-06-11] MEDS ORDERED: BISMUTH SUBSALICYLATE 524 MG/30 ML UD PO PRN (00:20)
[2020-06-11] MEDS: chlordiazePOXIDE HCL 25 MG CAPSULE PO SCH ×4 (05:29→22:46)
--- NOTE | 2020-06-11 09:55 | EKG ---
Test Reason : Blood Pressure : / mmHG Vent. Rate : 073 BPM Atrial Rate : 073 BPM P-R Int : 146 ms QRS Dur : 100 ms QT Int : 422 ms P-R-T Axes : 055 010 031 degrees QTc Int : 464 ms NORMAL SINUS RHYTHM POSSIBLE LEFT ATRIAL ENLARGEMENT INCOMPLETE RIGHT BUNDLE BRANCH BLOCK LEFT VENTRICULAR HYPERTROPHY ABNORMAL ECG WHEN COMPARED WITH ECG OF 10-APR-2019 18:48, NO SIGNIFICANT CHANGE WAS FOUND Confirmed by Ta Barnes MD ([id number]) on 06/11/2020 9:54:23 AM Referred By: Moses Garcia Confirmed By:Ta Barnes MD
[2020-06-11] MEDS: PRENATAL VITAMINS W/ FOLIC ACID TABLET (FP) PO SCH (10:39)
[2020-06-11] MEDS: NICOTINE 14 MG/24 HOURS TOPICAL PATCH TD SCH (10:39)
--- NOTE | 2020-06-11 12:34 | PN ---
S CIWA - CIWA Score Nausea/Vomitin-Mild Nausea/No Vomiting Muscle Tremors: 2 Anxiety: 2 Agitation: 1-Slight > Activity Paroxysmal Sweats: 1-Minimal Palms Moist Orientation: 0-Oriented Tacttile Disturbances: 0-None Auditory Disturbances: 0-None Visual Disturbances: 2-Mild Sensitivity Headache: 2-Mild CIWA-Ar Total Score: 11 S Progress Note (SOAP) Subjective: 54 years old male was admitted on 06/10/20 for alcohol withdrawal sx management treating with librium detox regiment feels better today ate breakfast and lunch in room social with peers in day room discussing after care with staff Objective: 06/11/20 12:33 Vital Signs - 24 hr 06/11/20 06/11/20 06:33 09:05 Temperature 97.7 F 98.0 F Pulse Rate 69 91 H Respiratory 18 20 Rate Blood Pressure 132/86 110/72 O2 Sat by Pulse 97 Oximetry (%) Laboratory Tests 06/11/20 06/11/20 07:00 07:00 Syphilis Serology Non-reactive HIV Ag/Ab Combo Qual Negative 06/11/20 12:33 covid pending Assessment: 06/11/20 12:34 alcohol withdrawal Plan: librium regiment
[2020-06-11] MEDS ORDERED: chlordiazePOXIDE HCL 25 MG CAPSULE ONE ×2 (22:03→22:04)
[2020-06-11] MEDS: THIAMINE HCL 100 MG TABLET (FP) PO SCH (22:47)
[2020-06-11] MEDS: MELATONIN 5 MG TABLETS PO SCH (22:47)
[2020-06-12] MEDS: chlordiazePOXIDE HCL 25 MG CAPSULE PO SCH ×4 (06:56→22:17)
[2020-06-12] MEDS: PRENATAL VITAMINS W/ FOLIC ACID TABLET (FP) PO SCH (10:44)
[2020-06-12] MEDS: NICOTINE 14 MG/24 HOURS TOPICAL PATCH TD SCH (10:45)
[2020-06-12 10:47] LABS: HEMATOCRIT 41.9 % (35.4-49); HEMOGLOBIN 13.8 GM/dL (11.7-16.9); MCH 31.7 pg (25.7-33.7); MEAN PLT VOLUME 9.1 fl (7.5-11.1); PLATELET COUNT 166 K/MM3 (134-434); RBC 4.36 M/mm3 (4.00-5.60); RDW 14.2 % (11.9-15.9); WHITE BLOOD COUNT 7.6 K/mm3 (4.0-10.0)
--- NOTE | 2020-06-12 10:54 | PN ---
S CIWA - CIWA Score Nausea/Vomitin-Mild Nausea/No Vomiting Muscle Tremors: 3 Anxiety: 3 Agitation: 2 Paroxysmal Sweats: 1-Minimal Palms Moist Orientation: 0-Oriented Tacttile Disturbances: 1-Very Mild Itch/Numbness Auditory Disturbances: 0-None Visual Disturbances: 0-None Headache: 2-Mild CIWA-Ar Total Score: 13 BHS Progress Note (SOAP) Subjective: alert,irritable,anxious,interrupted sleep,tremor,aching pain Objective: 06/12/20 16:27 Vital Signs Temperature 97.5 F L 06/12/20 12:55 Pulse Rate 101 H 06/12/20 12:55 Respiratory Rate 18 06/12/20 12:55 Blood Pressure 116/85 06/12/20 12:55 O2 Sat by Pulse Oximetry (%) 97 06/12/20 12:55 Laboratory Last Values WBC 7.6 K/mm3 (4.0-10.0) 06/12/20 07:00 RBC 4.36 M/mm3 (4.00-5.60) 06/12/20 07:00 Hgb 13.8 GM/dL (11.7-16.9) 06/12/20 07:00 Hct 41.9 % (35.4-49) 06/12/20 07:00 MCV 96.0 fl (80-96) 06/12/20 07:00 MCH 31.7 pg (25.7-33.7) 06/12/20 07:00 MCHC 33.0 g/dl (32.0-35.9) 06/12/20 07:00 RDW 14.2 % (11.9-15.9) 06/12/20 07:00 Plt Count 166 K/MM3 (134-434) 06/12/20 07:00 MPV 9.1 fl (7.5-11.1) 06/12/20 07:00 Sodium 140 mmol/L (136-145) 06/12/20 07:00 Potassium 4.0 mmol/L (3.5-5.1) 06/12/20 07:00 Chloride 105 mmol/L (98-107) 06/12/20 07:00 Carbon Dioxide 30 mmol/L (21-32) 06/12/20 07:00 Anion Gap 5 MMOL/L (8-16) L 06/12/20 07:00 BUN 14.5 mg/dL (7-18) 06/12/20 07:00 Creatinine 0.7 mg/dL (0.55-1.3) 06/12/20 07:00 Est GFR (CKD-EPI)AfAm 123.13 06/12/20 07:00 Est GFR (CKD-EPI)NonAf 106.24 06/12/20 07:00 Random Glucose 107 mg/dL (74-106) H 06/12/20 07:00 Calcium 9.1 mg/dL (8.5-10.1) 06/12/20 07:00 Total Bilirubin 1.4 mg/dL (0.2-1) H 06/12/20 07:00 AST 29 U/L (15-37) 06/12/20 07:00 ALT 45 U/L (13-61) 06/12/20 07:00 Alkaline Phosphatase 72 U/L (45-117) 06/12/20 07:00 Total Protein 7.3 g/dl (6.4-8.2) 06/12/20 07:00 Albumin 3.6 g/dl (3.4-5.0) 06/12/20 07:00 Syphilis Serology Non-reactive (NONREACTIVE) 06/11/20 07:00 COVID-19 ([facility]) Not detected (Not Detected) 06/11/20 00:01 HIV Ag/Ab Combo Qual Negative (NEGATIVE) 06/11/20 07:00 Assessment: 06/12/20 16:28 withdrawal symptom Plan: continue detox librium regimen,initail glucose is 107,bili 1.4,encourage fluid,fasting glucose ,creatinine in am
[2020-06-12 11:27] LABS: ALBUMIN 3.6 g/dl (3.4-5.0); BILIRUBIN,TOTAL 1.4 mg/dL (0.2-1); BLOOD UREA NITROGEN 14.5 mg/dL (7-18); CALCIUM 9.1 mg/dL (8.5-10.1); CREATININE 0.7 mg/dL (0.55-1.3); TOT PROT 7.3 g/dl (6.4-8.2)
[2020-06-12] MEDS ORDERED: FLU VACCINE (FLULAVAL) PF 60 MCG/0.5 ML SYRINGE 2020-2021 IM ONE (12:00)
[2020-06-12] MEDS: THIAMINE HCL 100 MG TABLET (FP) PO SCH (22:16)
[2020-06-12] MEDS: MELATONIN 5 MG TABLETS PO SCH (22:16)
[2020-06-13] MEDS ORDERED: chlordiazePOXIDE HCL 10 MG CAPSULE PO PRN
[2020-06-13] MEDS: chlordiazePOXIDE HCL 10 MG CAPSULE PO SCH ×4 (07:05→22:36)
[2020-06-13] MEDS: NICOTINE 14 MG/24 HOURS TOPICAL PATCH TD SCH (10:25)
[2020-06-13] MEDS: PRENATAL VITAMINS W/ FOLIC ACID TABLET (FP) PO SCH (10:25)
[2020-06-13 10:26] LABS: CREATININE 0.7 mg/dL (0.55-1.3)
--- NOTE | 2020-06-13 13:40 | PN ---
S CIWA - CIWA Score Nausea/Vomitin-Mild Nausea/No Vomiting Muscle Tremors: 2 Anxiety: 2 Agitation: 1-Slight > Activity Paroxysmal Sweats: No Perspiration Orientation: 0-Oriented Tacttile Disturbances: 0-None Auditory Disturbances: 0-None Visual Disturbances: 0-None Headache: 2-Mild CIWA-Ar Total Score: 8 BHS Progress Note (SOAP) Subjective: alert,irritable,anxious,interrupted sleep,aching pain,ambulation on he unit Objective: 06/13/20 17:15 Vital Signs Temperature 97.5 F L 06/13/20 13:00 Pulse Rate 72 06/13/20 13:00 Respiratory Rate 18 06/13/20 13:00 Blood Pressure 124/80 06/13/20 13:00 O2 Sat by Pulse Oximetry (%) 99 06/13/20 13:00 06/13/20 17:15 Laboratory Last Values WBC 7.6 K/mm3 (4.0-10.0) 06/12/20 07:00 RBC 4.36 M/mm3 (4.00-5.60) 06/12/20 07:00 Hgb 13.8 GM/dL (11.7-16.9) 06/12/20 07:00 Hct 41.9 % (35.4-49) 06/12/20 07:00 MCV 96.0 fl (80-96) 06/12/20 07:00 MCH 31.7 pg (25.7-33.7) 06/12/20 07:00 MCHC 33.0 g/dl (32.0-35.9) 06/12/20 07:00 RDW 14.2 % (11.9-15.9) 06/12/20 07:00 Plt Count 166 K/MM3 (134-434) 06/12/20 07:00 MPV 9.1 fl (7.5-11.1) 06/12/20 07:00 Sodium 140 mmol/L (136-145) 06/12/20 07:00 Potassium 4.0 mmol/L (3.5-5.1) 06/12/20 07:00 Chloride 105 mmol/L (98-107) 06/12/20 07:00 Carbon Dioxide 30 mmol/L (21-32) 06/12/20 07:00 Anion Gap 5 MMOL/L (8-16) L 06/12/20 07:00 BUN 14.5 mg/dL (7-18) 06/12/20 07:00 Creatinine 0.7 mg/dL (0.55-1.3) 06/13/20 07:00 Est GFR (CKD-EPI)AfAm 123.13 06/13/20 07:00 Est GFR (CKD-EPI)NonAf 106.24 06/13/20 07:00 Random Glucose 107 mg/dL (74-106) H 06/12/20 07:00 Fasting Glucose 85 mg/dL (74-106) 06/13/20 07:00 Calcium 9.1 mg/dL (8.5-10.1) 06/12/20 07:00 Total Bilirubin 1.4 mg/dL (0.2-1) H 06/12/20 07:00 AST 29 U/L (15-37) 06/12/20 07:00 ALT 45 U/L (13-61) 06/12/20 07:00 Alkaline Phosphatase 72 U/L (45-117) 06/12/20 07:00 Total Protein 7.3 g/dl (6.4-8.2) 06/12/20 07:00 Albumin 3.6 g/dl (3.4-5.0) 06/12/20 07:00 Syphilis Serology Non-reactive (NONREACTIVE) 06/11/20 07:00 COVID-19 ([facility]) Not detected (Not Detected) 06/11/20 00:01 HIV Ag/Ab Combo Qual Negative (NEGATIVE) 06/11/20 07:00 Assessment: 06/13/20 17:16 withdrawal symptom Plan: continue detox librium regimen, discharge in am
[2020-06-13] MEDS: MELATONIN 5 MG TABLETS PO SCH (22:36)
[2020-06-13] MEDS: THIAMINE HCL 100 MG TABLET (FP) PO SCH (22:37)
[2020-06-14] MEDS ORDERED: chlordiazePOXIDE HCL 10 MG CAPSULE PO SCH (05:00)
[2020-06-14] MEDS: PRENATAL VITAMINS W/ FOLIC ACID TABLET (FP) PO SCH (09:19)
[2020-06-14] MEDS: NICOTINE 14 MG/24 HOURS TOPICAL PATCH TD SCH (09:20)
[2020-06-14 09:38] VITALS: BP 111/85; PULSE 115; TEMP 98.6
--- NOTE | 2020-06-14 09:43 | DS ---
[facility] Detox Discharge Summary Admission Date: 06/11/20 Discharge Date: 06/14/20 - History Present History: Alcohol Dependence - Physical Exam Results Vital Signs: Vital Signs Temperature 98.6 F 06/14/20 09:24 Pulse Rate 115 H 06/14/20 09:24 Respiratory Rate 18 06/14/20 09:24 Blood Pressure 111/85 06/14/20 09:24 O2 Sat by Pulse Oximetry (%) 97 06/14/20 06:47 Pertinent Admission Physical Exam Findings: PE Gnl: WDWN, in no distress MS: nl Motor: moves limbs well Coord;nl Gait: steady Laboratory Tests 06/11/20 06/11/20 06/11/20 00:01 07:00 07:00 WBC RBC Hgb Hct MCV MCH MCHC RDW Plt Count MPV Sodium Potassium Chloride Carbon Dioxide Anion Gap BUN Creatinine Est GFR (CKD-EPI)AfAm Est GFR (CKD-EPI)NonAf Random Glucose Fasting Glucose Calcium Total Bilirubin AST ALT Alkaline Phosphatase Total Protein Albumin Syphilis Serology Non-reactive COVID-19 ([facility]) Not detected HIV Ag/Ab Combo Qual Negative 06/12/20 06/12/20 06/13/20 07:00 07:00 07:00 WBC 7.6 RBC 4.36 Hgb 13.8 Hct 41.9 MCV 96.0 MCH 31.7 MCHC 33.0 RDW 14.2 Plt Count 166 MPV 9.1 Sodium 140 Potassium 4.0 Chloride 105 Carbon Dioxide 30 Anion Gap 5 L BUN 14.5 Creatinine 0.7 Est GFR (CKD-EPI)AfAm 123.13 Est GFR (CKD-EPI)NonAf 106.24 Random Glucose 107 H Fasting Glucose 85 Calcium 9.1 Total Bilirubin 1.4 H AST 29 ALT 45 Alkaline Phosphatase 72 Total Protein 7.3 Albumin 3.6 Syphilis Serology COVID-19 ([facility]) HIV Ag/Ab Combo Qual 06/13/20 07:00 WBC RBC Hgb Hct MCV MCH MCHC RDW Plt Count MPV Sodium Potassium Chloride Carbon Dioxide Anion Gap BUN Creatinine 0.7 Est GFR (CKD-EPI)AfAm 123.13 Est GFR (CKD-EPI)NonAf 106.24 Random Glucose Fasting Glucose Calcium Total Bilirubin AST ALT Alkaline Phosphatase Total Protein Albumin Syphilis Serology COVID-19 ([facility]) HIV Ag/Ab Combo Qual Home Medication List Medication Instructions Recorded Confirmed Type NK [No Known Home Medication] 04/10/19 04/10/19 History Active Medications Generic Name Dose Route Start Last Admin Trade Name Freq PRN Reason Stop Dose Admin Acetaminophen 650 mg 06/11/20 00:20 Tylenol - PO Q6H PRN PAIN LEVEL 4 - 6 Acetaminophen 650 mg 06/11/20 00:20 Tylenol - PO Q6H PRN FEVER Al Hydroxide/Mg Hydroxide 30 ml 06/11/20 00:20 Mylanta Oral Suspension - PO Q6H PRN DYSPEPSIA Bismuth Subsalicylate 524 mg 06/11/20 00:20 Pepto-Bismol - PO Q1H PRN DIARRHEA Chlordiazepoxide HCl 10 mg 06/14/20 05:00 06/14/20 05:31 Librium - PO 06/14/20 17:01 10 mg Q12H JOSE ANTONIO Administration Chlordiazepoxide HCl 10 mg 06/15/20 05:00 Librium - PO 06/15/20 05:01 ONCE@0500 ONE Eucalyptus/Menthol/Phenol/Sorbitol 1 each 06/11/20 00:20 Cepastat Lozenge - MM 06/17/20 00:22 Q4H PRN SORE THROAT Ibuprofen 400 mg 06/11/20 00:20 Motrin - PO Q6H PRN PAIN LEVEL 1 - 3 Magnesium Citrate 300 ml 06/11/20 00:20 Citroma - PO Q48H PRN CONSTIPATION Magnesium Hydroxide 30 ml 06/11/20 00:20 Milk Of Magnesia - PO PRN PRN CONSTIPATION Melatonin 5 mg 06/11/20 22:00 06/13/20 22:36 Melatonin PO 5 mg HS JOSE ANTONIO Administration Methocarbamol 500 mg 06/11/20 00:20 Robaxin - PO 06/17/20 00:22 Q6H PRN MUSCLE SPASMS Nicotine 14 mg 06/11/20 10:00 06/14/20 09:20 Nicoderm Patch - TD Not Given DAILY [facility] Nicotine Polacrilex 2 mg 06/11/20 00:20 Nicorette Gum - BUC Q2H PRN NICOTINE REPLACEMENT RX Ondansetron HCl 4 mg 06/11/20 00:20 Zofran Odt - SL Q8H PRN Nausea/Vomiting Multivit/Folic Acid/Iron 1 tab 06/11/20 10:00 06/14/20 09:19 Vitamins (Sjr) - PO 1 tab DAILY JOSE ANTONIO Administration Thiamine HCl 100 mg 06/11/20 22:00 06/13/20 22:37 Vitamin B1 - PO 100 mg HS JOSE ANTONIO Administration - Treatment Hospital Course: Detox Protocol Followed, Detoxed Safely, Responded well, Discharged Condition Good, Rehab Referral Accepted ([facility]) - Medication Discharge Medications: Ambulatory Orders NK [No Known Home Medication] 04/10/19 - AMA Did Patient Leave Against Medical Advice: No
[2020-06-15] MEDS ORDERED: chlordiazePOXIDE HCL 10 MG CAPSULE PO ONE (05:00)
== END 2020-06-14 12:57 | disposition other institution (70) | DRG 775 ==
LOC: YASAS 20:46 → Y3N 06-11 01:33
PROVIDERS: ADMIT Allergy & Immunology; ATTEND Allergy & Immunology
PROC: HZ2ZZZZ Detoxification Services for Substance Abuse Treatment (ICD-10-PCS; principal; 2020-06-11)
DX: F10.230 Alcohol dependence with withdrawal, uncomplicated (principal); F17.210 Nicotine dependence, cigarettes, uncomplicated; Z56.0 Unemployment, unspecified; Z59.0 Homelessness
CPT/HCPCS: 36415; 80053; 82565; 82947; 85027; 86780; 87389; 93005; 93010; C9803; Q2036; U0003

== ENCOUNTER 2021-01-01 15:23 | Inpatient (IN) | payer OTHER ==
[2021-01-01 15:52] VITALS: BMI 23.3
[2021-01-01] MEDS ORDERED: BISMUTH SUBSALICYLATE 524 MG/30 ML UD PO PRN (16:24)
[2021-01-01] MEDS ORDERED: NICOTINE POLACRILEX 2 MG GUM BUC PRN (16:24)
[2021-01-01] MEDS ORDERED: MAGNESIUM HYDROX 2400MG/30ML ORAL SUSPENSION 30 ML CUP PO PRN (16:24)
[2021-01-01] MEDS ORDERED: ACETAMINOPHEN 325 MG TABLET (FP) PO PRN ×2 (16:24)
[2021-01-01] MEDS ORDERED: MENTHOL/PHENOL 1 EACH UD MM PRN (16:24)
[2021-01-01] MEDS ORDERED: MAGNESIUM CITRATE 300 ML BOTTLE PO PRN (16:24)
[2021-01-01] MEDS ORDERED: MAG HYDROX/AL HYDROX/SIMETH 30 ML UNIT-DOSE CUP PO PRN (16:24)
[2021-01-01] MEDS ORDERED: diazePAM 5 MG TABLET PO PRN (16:24)
[2021-01-01] MEDS ORDERED: METHOCARBAMOL 500 MG TABLET PO PRN (16:24)
[2021-01-01] MEDS ORDERED: IBUPROFEN 400 MG TABLET (FP) PO PRN (16:24)
[2021-01-01] MEDS ORDERED: ONDANSETRON *ODT* 4 MG TABLET SL PRN (16:24)
[2021-01-01] MEDS: hydrOXYzine PAMOATE 25 MG CAPSULE (FP) PO SCH ×2 (18:02→22:41)
[2021-01-01] MEDS ORDERED: MELATONIN 5 MG TABLETS PO SCH (22:00)
[2021-01-01] MEDS: diazePAM 5 MG TABLET PO SCH (22:40)
[2021-01-01] MEDS: THIAMINE HCL 100 MG TABLET (FP) PO SCH (22:41)
[2021-01-02] MEDS: hydrOXYzine PAMOATE 25 MG CAPSULE (FP) PO SCH ×5 (05:43→22:18)
[2021-01-02] MEDS: diazePAM 5 MG TABLET PO SCH ×4 (05:44→22:18)
[2021-01-02] MEDS: NICOTINE 14 MG/24 HOURS TOPICAL PATCH TD SCH (10:13)
[2021-01-02] MEDS: PRENATAL VITAMINS W/ FOLIC ACID TABLET (FP) PO SCH (10:13)
[2021-01-02 10:19] LABS: HEMATOCRIT 40.4 % (35.4-49); HEMOGLOBIN 13.4 GM/dL (11.7-16.9); MCH 31.2 pg (25.7-33.7); MCHC 33.2 g/dl (32.0-35.9); MEAN CELL VOLUME 93.9 fl (80-96); MEAN PLT VOLUME 8.8 fl (7.5-11.1); PLATELET COUNT 181 K/MM3 (134-434); RDW 14.7 % (11.9-15.9); WHITE BLOOD COUNT 5.2 K/mm3 (4.0-10.0)
[2021-01-02 10:20] LABS: CALCIUM 8.8 mg/dL (8.5-10.1)
[2021-01-02 10:21] LABS: ALBUMIN 3.6 g/dl (3.4-5.0); BLOOD UREA NITROGEN 8.4 mg/dL (7-18)
[2021-01-02 10:24] LABS: BILIRUBIN,TOTAL 0.7 mg/dL (0.2-1); CREATININE 0.7 mg/dL (0.55-1.3); TOT PROT 7.3 g/dl (6.4-8.2)
[2021-01-02] MEDS: THIAMINE HCL 100 MG TABLET (FP) PO SCH (22:18)
[2021-01-02] MEDS: MELATONIN 5 MG TABLETS PO SCH (22:19)
[2021-01-03] MEDS: hydrOXYzine PAMOATE 25 MG CAPSULE (FP) PO SCH ×5 (05:18→22:54)
[2021-01-03] MEDS: diazePAM 5 MG TABLET PO SCH ×3 (05:18→22:55)
[2021-01-03] MEDS: PRENATAL VITAMINS W/ FOLIC ACID TABLET (FP) PO SCH (10:33)
[2021-01-03] MEDS: NICOTINE 14 MG/24 HOURS TOPICAL PATCH TD SCH (10:33)
[2021-01-03] MEDS: THIAMINE HCL 100 MG TABLET (FP) PO SCH (22:54)
[2021-01-03] MEDS: MELATONIN 5 MG TABLETS PO SCH (22:55)
[2021-01-04] MEDS: hydrOXYzine PAMOATE 25 MG CAPSULE (FP) PO SCH ×5 (05:28→22:53)
[2021-01-04] MEDS: diazePAM 5 MG TABLET PO SCH ×2 (05:28→17:59)
[2021-01-04 06:06] LABS: SARS-CoV-2 NAA Not Detected (Not Detected)
[2021-01-04] MEDS: PRENATAL VITAMINS W/ FOLIC ACID TABLET (FP) PO SCH (10:17)
[2021-01-04] MEDS: NICOTINE 14 MG/24 HOURS TOPICAL PATCH TD SCH (10:17)
[2021-01-04] MEDS: THIAMINE HCL 100 MG TABLET (FP) PO SCH (22:53)
[2021-01-04] MEDS: MELATONIN 5 MG TABLETS PO SCH (22:53)
[2021-01-05] MEDS ORDERED: diazePAM 5 MG TABLET PO ONE (06:00)
[2021-01-05] MEDS: hydrOXYzine PAMOATE 25 MG CAPSULE (FP) PO SCH ×5 (06:13→22:14)
[2021-01-05] MEDS: NICOTINE 14 MG/24 HOURS TOPICAL PATCH TD SCH (10:45)
[2021-01-05] MEDS: PRENATAL VITAMINS W/ FOLIC ACID TABLET (FP) PO SCH (10:45)
[2021-01-05] MEDS: MELATONIN 5 MG TABLETS PO SCH (22:14)
[2021-01-05] MEDS: THIAMINE HCL 100 MG TABLET (FP) PO SCH (22:14)
[2021-01-06] MEDS: hydrOXYzine PAMOATE 25 MG CAPSULE (FP) PO SCH (05:27)
[2021-01-06] MEDS ORDERED: hydrOXYzine PAMOATE 25 MG CAPSULE (FP) PO PRN (08:31)
[2021-01-06] MEDS: PRENATAL VITAMINS W/ FOLIC ACID TABLET (FP) PO SCH (09:35)
[2021-01-06] MEDS: NICOTINE 14 MG/24 HOURS TOPICAL PATCH TD SCH (09:35)
[2021-01-06 14:28] VITALS: BP 117/84; PULSE 101; TEMP 97.7
[2021-01-06] MEDS ORDERED: MAGNESIUM HYDROX 2400MG/30ML ORAL SUSPENSION 30 ML CUP PO PRN (18:17)
[2021-01-06] MEDS ORDERED: ACETAMINOPHEN 325 MG TABLET (FP) PO PRN (18:17)
[2021-01-06] MEDS ORDERED: MENTHOL/PHENOL 1 EACH UD MM PRN (18:17)
[2021-01-06] MEDS ORDERED: MAGNESIUM CITRATE 300 ML BOTTLE PO PRN (18:17)
[2021-01-06] MEDS ORDERED: MAG HYDROX/AL HYDROX/SIMETH 30 ML UNIT-DOSE CUP PO PRN (18:17)
[2021-01-06] MEDS ORDERED: guaiFENesin 200 MG/10 ML 10 ML UNIT-DOSE CUPS PO PRN (18:17)
[2021-01-06] MEDS ORDERED: P-EPHED 60MG/TRIPROLIDI 2.5MG TABLET PO PRN (18:17)
[2021-01-06] MEDS ORDERED: NICOTINE POLACRILEX 2 MG GUM BUC PRN (18:17)
[2021-01-06] MEDS ORDERED: LOPERAMIDE HCL 2 MG CAPSULE PO PRN (18:17)
[2021-01-06] MEDS ORDERED: IBUPROFEN 400 MG TABLET (FP) PO PRN (18:17)
[2021-01-06] MEDS ORDERED: THIAMINE HCL 100 MG TABLET (FP) PO SCH (22:00)
[2021-01-06] MEDS ORDERED: MELATONIN 5 MG TABLETS PO SCH (22:00)
[2021-01-06] MEDS ORDERED: hydrOXYzine PAMOATE 25 MG CAPSULE (FP) PO SCH (22:00)
[2021-01-07] MEDS ORDERED: PRENATAL VITAMINS W/ FOLIC ACID TABLET (FP) PO SCH (10:00)
[2021-01-07] MEDS ORDERED: NICOTINE 7 MG/24 HOURS TOPICAL PATCH TD SCH (10:00)
== END 2021-01-06 15:08 | disposition other institution (70) | DRG 775 ==
LOC: YASAS 15:23 → Y3N 16:48 → Y6N 01-02 14:08
PROVIDERS: ADMIT Allergy & Immunology; ATTEND Allergy & Immunology
PROC: HZ2ZZZZ Detoxification Services for Substance Abuse Treatment (ICD-10-PCS; principal; 2021-01-01)
DX: F10.230 Alcohol dependence with withdrawal, uncomplicated (principal); F10.24 Alcohol dependence with alcohol-induced mood disorder; F10.282 Alcohol dependence with alcohol-induced sleep disorder; F17.210 Nicotine dependence, cigarettes, uncomplicated; F34.1 Dysthymic disorder; B35.1 Tinea unguium; H55.00 Unspecified nystagmus; R03.0 Elevated blood-pressure reading, without diagnosis of hypertension; Z86.69 Personal history of other diseases of the nervous system and sense organs; Z56.0 Unemployment, unspecified; Z59.0 Homelessness
CPT/HCPCS: 36415; 80053; 85027; 86780; 93005; 93010; C9803; U0003; U0005

== ENCOUNTER 2021-01-06 15:27 | Inpatient (IN) | payer OTHER ==
[2021-01-06] MEDS ORDERED: LOPERAMIDE HCL 2 MG CAPSULE PO PRN (20:13)
[2021-01-06] MEDS ORDERED: MAGNESIUM CITRATE 300 ML BOTTLE PO PRN (20:13)
[2021-01-06] MEDS ORDERED: MAG HYDROX/AL HYDROX/SIMETH 30 ML UNIT-DOSE CUP PO PRN (20:13)
[2021-01-06] MEDS ORDERED: MAGNESIUM HYDROX 2400MG/30ML ORAL SUSPENSION 30 ML CUP PO PRN (20:13)
[2021-01-06] MEDS ORDERED: P-EPHED 60MG/TRIPROLIDI 2.5MG TABLET PO PRN (20:13)
[2021-01-06] MEDS ORDERED: guaiFENesin 200 MG/10 ML 10 ML UNIT-DOSE CUPS PO PRN (20:13)
[2021-01-06] MEDS ORDERED: NICOTINE POLACRILEX 2 MG GUM BC PRN (20:13)
[2021-01-06] MEDS ORDERED: ACETAMINOPHEN 325 MG TABLET (FP) PO PRN (20:13)
[2021-01-06] MEDS ORDERED: IBUPROFEN 400 MG TABLET (FP) PO PRN (20:13)
[2021-01-06] MEDS: MELATONIN 5 MG TABLETS PO SCH (22:12)
[2021-01-06] MEDS: THIAMINE HCL 100 MG TABLET (FP) PO SCH (22:12)
[2021-01-06] MEDS: hydrOXYzine PAMOATE 25 MG CAPSULE (FP) PO SCH (22:12)
[2021-01-07] MEDS: hydrOXYzine PAMOATE 25 MG CAPSULE (FP) PO SCH ×3 (07:38→13:12)
[2021-01-07] MEDS: NICOTINE 7 MG/24 HOURS TOPICAL PATCH TD SCH (09:43)
[2021-01-07] MEDS: PRENATAL VITAMINS W/ FOLIC ACID TABLET (FP) PO SCH (09:43)
[2021-01-07 15:39] LABS: HIV INTERPRETATION NEGATIVE (NEGATIVE)
[2021-01-07] MEDS: MELATONIN 5 MG TABLETS PO SCH (21:16)
[2021-01-07] MEDS: THIAMINE HCL 100 MG TABLET (FP) PO SCH (21:16)
[2021-01-08] MEDS: NICOTINE 7 MG/24 HOURS TOPICAL PATCH TD SCH (09:40)
[2021-01-08] MEDS: PRENATAL VITAMINS W/ FOLIC ACID TABLET (FP) PO SCH (09:40)
[2021-01-08] MEDS ORDERED: ONDANSETRON *ODT* 4 MG TABLET SL PRN (11:00)
[2021-01-08 11:11] LABS: PH,URINE 5.5 (5.0-8.0); URINE APPEARANCE CLEAR; URINE BILIRUBIN NEGATIVE (NEGATIVE); URINE COLOR YELLOW; URINE GLUCOSE (UA) NEGATIVE (NEGATIVE); URINE KETONE NEGATIVE (NEGATIVE); URINE LEUK ESTERASE NEGATIVE (NEGATIVE); URINE NITRITE NEGATIVE (NEGATIVE); URINE PROTEIN NEGATIVE (NEGATIVE); URINE UROBILINOGEN 0.2 mg/dL (0.2-1.0)
[2021-01-08] MEDS: THIAMINE HCL 100 MG TABLET (FP) PO SCH (21:47)
[2021-01-08] MEDS: MELATONIN 5 MG TABLETS PO SCH (21:48)
[2021-01-09] MEDS ORDERED: PT OWN MED DRAWER 7, Y5N ONE (09:13)
[2021-01-09] MEDS: PRENATAL VITAMINS W/ FOLIC ACID TABLET (FP) PO SCH (09:52)
[2021-01-09] MEDS: NICOTINE 7 MG/24 HOURS TOPICAL PATCH TD SCH (09:52)
[2021-01-09] MEDS: MELATONIN 5 MG TABLETS PO SCH (21:26)
[2021-01-09] MEDS: THIAMINE HCL 100 MG TABLET (FP) PO SCH (21:26)
[2021-01-10] MEDS: PRENATAL VITAMINS W/ FOLIC ACID TABLET (FP) PO SCH (09:59)
[2021-01-10] MEDS: NICOTINE 7 MG/24 HOURS TOPICAL PATCH TD SCH (10:00)
[2021-01-10] MEDS: THIAMINE HCL 100 MG TABLET (FP) PO SCH (21:53)
[2021-01-10] MEDS: hydrOXYzine PAMOATE 25 MG CAPSULE (FP) PO PRN (21:54)
[2021-01-10] MEDS: MELATONIN 5 MG TABLETS PO SCH (21:54)
[2021-01-11 06:06] LABS: SARS-CoV-2 NAA Not Detected (Not Detected)
[2021-01-11] MEDS: PRENATAL VITAMINS W/ FOLIC ACID TABLET (FP) PO SCH (09:52)
[2021-01-11] MEDS: NICOTINE 7 MG/24 HOURS TOPICAL PATCH TD SCH (09:53)
[2021-01-11] MEDS: THIAMINE HCL 100 MG TABLET (FP) PO SCH (22:09)
[2021-01-11] MEDS: MELATONIN 5 MG TABLETS PO SCH (22:09)
[2021-01-12] MEDS: hydrOXYzine PAMOATE 25 MG CAPSULE (FP) PO PRN (06:10)
[2021-01-12] MEDS: NICOTINE 7 MG/24 HOURS TOPICAL PATCH TD SCH (09:31)
[2021-01-12] MEDS: PRENATAL VITAMINS W/ FOLIC ACID TABLET (FP) PO SCH (09:31)
[2021-01-12] MEDS: MELATONIN 5 MG TABLETS PO SCH (21:12)
[2021-01-12] MEDS: THIAMINE HCL 100 MG TABLET (FP) PO SCH (21:12)
[2021-01-13] MEDS: PRENATAL VITAMINS W/ FOLIC ACID TABLET (FP) PO SCH (09:36)
[2021-01-13] MEDS: NICOTINE 7 MG/24 HOURS TOPICAL PATCH TD SCH (09:36)
[2021-01-13] MEDS: THIAMINE HCL 100 MG TABLET (FP) PO SCH (21:21)
[2021-01-13] MEDS: MELATONIN 5 MG TABLETS PO SCH (21:22)
[2021-01-14] MEDS: hydrOXYzine PAMOATE 25 MG CAPSULE (FP) PO PRN (06:22)
[2021-01-14] MEDS: PRENATAL VITAMINS W/ FOLIC ACID TABLET (FP) PO SCH (10:10)
[2021-01-14] MEDS: NICOTINE 7 MG/24 HOURS TOPICAL PATCH TD SCH (10:10)
[2021-01-14] MEDS: THIAMINE HCL 100 MG TABLET (FP) PO SCH (21:39)
[2021-01-14] MEDS: MELATONIN 5 MG TABLETS PO SCH (21:40)
[2021-01-15] MEDS: hydrOXYzine PAMOATE 25 MG CAPSULE (FP) PO PRN (06:25)
[2021-01-15] MEDS: PRENATAL VITAMINS W/ FOLIC ACID TABLET (FP) PO SCH (09:49)
[2021-01-15] MEDS: NICOTINE 7 MG/24 HOURS TOPICAL PATCH TD SCH (09:49)
[2021-01-15] MEDS: THIAMINE HCL 100 MG TABLET (FP) PO SCH (21:26)
[2021-01-15] MEDS: MELATONIN 5 MG TABLETS PO SCH (21:26)
[2021-01-16] MEDS: hydrOXYzine PAMOATE 25 MG CAPSULE (FP) PO PRN ×2 (06:27→10:09)
[2021-01-16] MEDS: PRENATAL VITAMINS W/ FOLIC ACID TABLET (FP) PO SCH (10:09)
[2021-01-16] MEDS: NICOTINE 7 MG/24 HOURS TOPICAL PATCH TD SCH (10:09)
[2021-01-16] MEDS: THIAMINE HCL 100 MG TABLET (FP) PO SCH (21:25)
[2021-01-16] MEDS: MELATONIN 5 MG TABLETS PO SCH (21:25)
[2021-01-17] MEDS: hydrOXYzine PAMOATE 25 MG CAPSULE (FP) PO PRN (06:38)
[2021-01-17] MEDS: NICOTINE 7 MG/24 HOURS TOPICAL PATCH TD SCH (09:46)
[2021-01-17] MEDS: PRENATAL VITAMINS W/ FOLIC ACID TABLET (FP) PO SCH (09:46)
[2021-01-17] MEDS: THIAMINE HCL 100 MG TABLET (FP) PO SCH (21:37)
[2021-01-17] MEDS: MELATONIN 5 MG TABLETS PO SCH (21:37)
[2021-01-18] MEDS: PRENATAL VITAMINS W/ FOLIC ACID TABLET (FP) PO SCH (09:49)
[2021-01-18] MEDS: NICOTINE 7 MG/24 HOURS TOPICAL PATCH TD SCH (09:50)
[2021-01-18] MEDS: hydrOXYzine PAMOATE 25 MG CAPSULE (FP) PO PRN (21:28)
[2021-01-18] MEDS: THIAMINE HCL 100 MG TABLET (FP) PO SCH (21:28)
[2021-01-18] MEDS: MELATONIN 5 MG TABLETS PO SCH (21:28)
[2021-01-19 07:11] VITALS: BP 112/83; PULSE 73; TEMP 97.4
[2021-01-19] MEDS: PRENATAL VITAMINS W/ FOLIC ACID TABLET (FP) PO SCH (10:15)
[2021-01-19] MEDS: NICOTINE 7 MG/24 HOURS TOPICAL PATCH TD SCH (10:16)
[2021-01-19] MEDS: hydrOXYzine PAMOATE 25 MG CAPSULE (FP) PO PRN ×2 (10:16→21:58)
[2021-01-19] MEDS: THIAMINE HCL 100 MG TABLET (FP) PO SCH (21:58)
[2021-01-19] MEDS: MELATONIN 5 MG TABLETS PO SCH (21:59)
[2021-01-20] MEDS: hydrOXYzine PAMOATE 25 MG CAPSULE (FP) PO PRN (06:46)
[2021-01-20] MEDS: PRENATAL VITAMINS W/ FOLIC ACID TABLET (FP) PO SCH (09:30)
[2021-01-20] MEDS: NICOTINE 7 MG/24 HOURS TOPICAL PATCH TD SCH (09:30)
== END 2021-01-20 10:03 | disposition home or self-care (01) | DRG 772 ==
LOC: YASAS 15:27 → Y5N 15:29
PROVIDERS: ADMIT Allergy & Immunology; ATTEND Allergy & Immunology
PROC: HZ42ZZZ Group Counseling for Substance Abuse Treatment, Cognitive-Behavioral (ICD-10-PCS; principal; 2021-01-06)
DX: F10.20 Alcohol dependence, uncomplicated (principal); F17.210 Nicotine dependence, cigarettes, uncomplicated; F32.9 Major depressive disorder, single episode, unspecified
CPT/HCPCS: 36415; 81003; 87389; C9803; Q0162; U0003; U0005

== ENCOUNTER 2023-12-15 19:33 | Emergency (ER) | payer OTHER ==
[2023-12-15 20:12] VITALS: BP 118/74; PULSE 89; RESP 20; TEMP 98; BMI 22.1
== END 2023-12-15 21:49 | disposition home or self-care (01) ==
LOC: JER 19:33
DX: F10.929 Alcohol use, unspecified with intoxication, unspecified (principal); R53.83 Other fatigue
CPT/HCPCS: 99282-25

== ENCOUNTER 2023-12-15 22:11 | Inpatient (IN) | payer OTHER ==
[2023-12-15 22:54] VITALS: BMI 22.1
[2023-12-15] MEDS ORDERED: LOPERAMIDE HCL 2 MG CAPSULE PO PRN (23:03)
[2023-12-15] MEDS ORDERED: guaiFENesin 600 MG TABLET.ER (FP) PO PRN (23:03)
[2023-12-15] MEDS ORDERED: BENZOCAINE/MENTHOL (CHLORASEPTIC ) LOZENGE MM PRN (23:03)
[2023-12-15] MEDS ORDERED: DICYCLOMINE HCL 10 MG CAPSULE PO PRN (23:03)
[2023-12-15] MEDS ORDERED: ONDANSETRON *ODT* 4 MG TABLET SL PRN (23:03)
[2023-12-15] MEDS ORDERED: IBUPROFEN 400 MG TABLET (FP) PO PRN (23:03)
[2023-12-15] MEDS ORDERED: ACETAMINOPHEN 325 MG TABLET (FP) PO PRN (23:03)
[2023-12-15] MEDS ORDERED: IBUPROFEN 600 MG TABLET (FP) PO PRN (23:03)
[2023-12-15] MEDS ORDERED: NICOTINE POLACRILEX 2 MG GUM BUC PRN (23:03)
[2023-12-15] MEDS ORDERED: METHOCARBAMOL 500 MG TABLET PO PRN (23:03)
[2023-12-15] MEDS ORDERED: POLYETHYLENE GLYCOL (HEALTHYLAX) 3350 17 GM PACKET PO PRN (23:03)
[2023-12-15] MEDS ORDERED: BENZONATATE 200 MG CAPSULE PO PRN (23:03)
[2023-12-15] MEDS ORDERED: MAGNESIUM HYDROX 2400MG/30ML ORAL SUSPENSION 30 ML CUP PO PRN (23:03)
[2023-12-15] MEDS ORDERED: BISMUTH SUBSALICYLATE 524 MG/30 ML PO PRN (23:03)
[2023-12-15] MEDS ORDERED: MAG HYDROX/AL HYDROX/SIMETH 30 ML UNIT-DOSE CUP PO PRN (23:03)
[2023-12-15] MEDS ORDERED: levETIRAcetam 500 MG TABLET (FP) PO ONE (23:37)
[2023-12-15] MEDS: levETIRAcetam 500 MG TABLET (FP) PO SCH (23:39)
[2023-12-16] MEDS: PRENATAL VITAMINS W/ FOLIC ACID TABLET (FP) PO SCH (09:31)
[2023-12-16] MEDS: FOLIC ACID 1 MG TABLET (FP) PO SCH (09:31)
[2023-12-16] MEDS: chlordiazePOXIDE HCL 25 MG CAPSULE PO SCH (10:36)
[2023-12-16 11:16] LABS: HEMATOCRIT 36.5 % (35.4-49); HEMOGLOBIN 12.1 GM/dL (11.7-16.9); MCHC 33.2 g/dl (32.0-35.9); MEAN CELL VOLUME 87.2 fl (80-96); MEAN PLT VOLUME 7.9 fl (7.5-11.1); PLATELET COUNT 270 10^3/uL (134-434); RBC 4.19 M/mm3 (4.00-5.60); RDW 13.7 % (11.9-15.9); WHITE BLOOD COUNT 9.2 K/mm3 (4.0-10.0)
[2023-12-16 11:33] LABS: CHLORIDE 105 mmol/L (98-107); POTASSIUM 3.9 mmol/L (3.5-5.1); SODIUM 140 mmol/L (136-145)
[2023-12-16 11:38] LABS: CALCIUM 8.5 mg/dL (8.5-10.1)
[2023-12-16 11:39] LABS: ALBUMIN 2.9 g/dl (3.4-5.0); ANION GAP 3 mmol/L (4-13); BLOOD UREA NITROGEN 11.9 mg/dL (7-18); CO2 31 mmol/L (21-32); GLUCOSE,RANDOM 86 mg/dL (74-106)
[2023-12-16 11:42] LABS: CREATININE 0.8 mg/dL (0.55-1.3); SGOT/AST 18 U/L (15-37); SGPT/ALT 25 U/L (13-61)
[2023-12-16 11:43] LABS: TOT PROT 7.1 g/dl (6.4-8.2)
[2023-12-16 11:44] LABS: BILIRUBIN,TOTAL 0.3 mg/dL (0.2-1)
[2023-12-16 11:45] LABS: ALK PHOS 133 U/L (45-117)
[2023-12-16] MEDS ORDERED: MELATONIN 5 MG TABLETS PO SCH (22:00)
[2023-12-16] MEDS: QUEtiapine FUMARATE 50 MG TABLET PO SCH (22:29)
[2023-12-16] MEDS: THIAMINE HCL 100 MG TABLET (FP) PO SCH (22:29)
[2023-12-16] MEDS: hydrOXYzine PAMOATE 25 MG CAPSULE (FP) PO PRN (22:29)
[2023-12-18] MEDS: chlordiazePOXIDE HCL 25 MG CAPSULE PO SCH (05:54)
[2023-12-18] MEDS: chlordiazePOXIDE HCL 25 MG CAPSULE PO PRN (14:42)
[2023-12-19] MEDS ORDERED: chlordiazePOXIDE HCL 10 MG CAPSULE PO PRN
[2023-12-19] MEDS: chlordiazePOXIDE HCL 10 MG CAPSULE PO SCH (05:32)
[2023-12-20] MEDS: chlordiazePOXIDE HCL 10 MG CAPSULE PO SCH (06:00)
[2023-12-21] MEDS: chlordiazePOXIDE HCL 10 MG CAPSULE PO ONE (05:44)
[2023-12-21 09:07] VITALS: BP 116/75; PULSE 81; RESP 18; TEMP 97.5
== END 2023-12-21 12:06 | disposition home or self-care (01) | DRG 774 ==
LOC: YASAS 22:11 → Y3N 23:40
PROVIDERS: ADMIT Allergy & Immunology; ATTEND Surgery
PROC: HZ2ZZZZ Detoxification Services for Substance Abuse Treatment (ICD-10-PCS; principal; 2023-12-15)
DX: F10.230 Alcohol dependence with withdrawal, uncomplicated (principal); F14.20 Cocaine dependence, uncomplicated; F17.210 Nicotine dependence, cigarettes, uncomplicated; F10.282 Alcohol dependence with alcohol-induced sleep disorder; F10.24 Alcohol dependence with alcohol-induced mood disorder; F32.A Depression, unspecified; Z86.69 Personal history of other diseases of the nervous system and sense organs; Z59.02 Unsheltered homelessness
CPT/HCPCS: 36415; 80053; 80307; 85027; 86780; 87811; 93005; 93010

== ENCOUNTER 2023-12-21 12:07 | Inpatient (IN) | payer OTHER ==
[2023-12-21] MEDS ORDERED: NALOXONE (NYS OPIOID OVERDOSE PROGRAM) 4 MG/0.1 ML SPRAY NS PRN (13:40)
[2023-12-21] MEDS ORDERED: NICOTINE POLACRILEX 4 MG LOZENGE BC PRN (13:40)
[2023-12-21] MEDS ORDERED: guaiFENesin 600 MG TABLET.ER (FP) PO PRN (13:40)
[2023-12-21] MEDS ORDERED: NICOTINE POLACRILEX 4 MG GUM BUC PRN (13:40)
[2023-12-21] MEDS ORDERED: NALOXONE HCL 0.4 MG/ML VIAL IVPUSH PRN (13:40)
[2023-12-21] MEDS ORDERED: METHOCARBAMOL 500 MG TABLET PO PRN (13:40)
[2023-12-21] MEDS ORDERED: ACETAMINOPHEN 325 MG TABLET (FP) PO PRN (13:40)
[2023-12-21] MEDS ORDERED: POLYETHYLENE GLYCOL (HEALTHYLAX) 3350 17 GM PACKET PO PRN (13:40)
[2023-12-21] MEDS ORDERED: MAG HYDROX/AL HYDROX/SIMETH 30 ML UNIT-DOSE CUP PO PRN (13:40)
[2023-12-21] MEDS ORDERED: MAGNESIUM HYDROX 2400MG/30ML ORAL SUSPENSION 30 ML CUP PO PRN (13:40)
[2023-12-21] MEDS ORDERED: LOPERAMIDE HCL 2 MG CAPSULE PO PRN (13:40)
[2023-12-21] MEDS ORDERED: BENZONATATE 200 MG CAPSULE PO PRN (13:40)
[2023-12-21] MEDS ORDERED: IBUPROFEN 400 MG TABLET (FP) PO PRN (13:40)
[2023-12-21] MEDS ORDERED: IBUPROFEN 600 MG TABLET (FP) PO PRN (13:40)
[2023-12-21] MEDS: QUEtiapine FUMARATE 50 MG TABLET PO SCH (21:55)
[2023-12-21] MEDS: MELATONIN 5 MG TABLETS PO SCH (21:55)
[2023-12-21] MEDS: THIAMINE 100 MG TABLET PO SCH (22:54)
[2023-12-22] MEDS: FOLIC ACID 1 MG TABLET (FP) PO SCH (10:41)
[2023-12-22] MEDS: PRENATAL VITAMINS W/ FOLIC ACID TABLET (FP) PO SCH (10:41)
[2023-12-22] MEDS: NICOTINE 7 MG/24 HOURS TOPICAL PATCH TD SCH (10:41)
[2023-12-22] MEDS: CLOTRIMAZOLE 1% CREAM TP SCH (21:23)
[2023-12-24] MEDS: BENZOCAINE/MENTHOL (CHLORASEPTIC ) LOZENGE MM PRN (09:13)
[2023-12-24] MEDS ORDERED: BENZONATATE 200 MG CAPSULE PO PRN (09:38)
[2023-12-24] MEDS ORDERED: guaiFENesin 600 MG TABLET.ER (FP) PO PRN (09:38)
[2023-12-24] MEDS ORDERED: DICYCLOMINE HCL 10 MG CAPSULE PO PRN (09:38)
[2023-12-31] MEDS: hydrOXYzine PAMOATE 25 MG CAPSULE (FP) PO PRN (22:07)
[2024-01-03] MEDS: NALTREXONE HCL 50 MG TABLET PO ONE (16:05)
[2024-01-03] MEDS: NALTREXONE HCL 50 MG TABLET PO SCH (16:07)
[2024-01-04] MEDS: NALTREXONE HCL 50 MG TABLET PO SCH (10:29)
[2024-01-08] MEDS ORDERED: NALTREXONE MICROSPHERES (VIVITROL) 380 MG DISP.SYRIN IM ONE ×2 (18:00)
[2024-01-17] MEDS: NALTREXONE MICROSPHERES (VIVITROL) 380 MG DISP.SYRIN IM ONE (18:50)
[2024-01-18 07:18] VITALS: BP 126/89; PULSE 81; RESP 18; TEMP 97.5
== END 2024-01-18 09:35 | disposition home or self-care (01) | DRG 772 ==
LOC: YASAS 12:07 → Y3E 12:08
PROVIDERS: ADMIT Allergy & Immunology; ATTEND Psychiatry & Neurology Pain Medicine
PROC: HZ42ZZZ Group Counseling for Substance Abuse Treatment, Cognitive-Behavioral (ICD-10-PCS; principal; 2023-12-21)
DX: F10.20 Alcohol dependence, uncomplicated (principal); F10.282 Alcohol dependence with alcohol-induced sleep disorder; F10.24 Alcohol dependence with alcohol-induced mood disorder; F17.210 Nicotine dependence, cigarettes, uncomplicated; G47.00 Insomnia, unspecified; L21.9 Seborrheic dermatitis, unspecified; Z59.00 Homelessness unspecified
CPT/HCPCS: 0241U-QW; 36415; 82140; 86803; 87651; J2315

== ENCOUNTER 2024-03-10 13:13 | Inpatient (IN) | payer OTHER ==
[2024-03-10 14:50] VITALS: BMI 23.3
[2024-03-10] MEDS ORDERED: BISMUTH SUBSALICYLATE 524 MG/30 ML PO PRN (15:24)
[2024-03-10] MEDS ORDERED: NALOXONE HCL 0.4 MG/ML VIAL IM PRN (15:24)
[2024-03-10] MEDS ORDERED: IBUPROFEN 400 MG TABLET (FP) PO PRN (15:24)
[2024-03-10] MEDS ORDERED: DICYCLOMINE HCL 10 MG CAPSULE PO PRN (15:24)
[2024-03-10] MEDS ORDERED: NALOXONE (NARCAN) HCL 4 MG/0.1 ML SPRAY NS PRN (15:24)
[2024-03-10] MEDS ORDERED: ONDANSETRON *ODT* 4 MG TABLET SL PRN (15:24)
[2024-03-10] MEDS ORDERED: POLYETHYLENE GLYCOL (HEALTHYLAX) 3350 17 GM PACKET PO PRN (15:24)
[2024-03-10] MEDS ORDERED: BENZOCAINE/MENTHOL (CHLORASEPTIC ) LOZENGE MM PRN (15:24)
[2024-03-10] MEDS ORDERED: MAGNESIUM HYDROX 2400MG/30ML ORAL SUSPENSION 30 ML CUP PO PRN (15:24)
[2024-03-10] MEDS ORDERED: ACETAMINOPHEN 325 MG TABLET (FP) PO PRN (15:24)
[2024-03-10] MEDS ORDERED: guaiFENesin 600 MG TABLET.ER (FP) PO PRN (15:24)
[2024-03-10] MEDS ORDERED: LOPERAMIDE HCL 2 MG CAPSULE PO PRN (15:24)
[2024-03-10] MEDS ORDERED: BENZONATATE 200 MG CAPSULE PO PRN (15:24)
[2024-03-10] MEDS ORDERED: MAG HYDROX/AL HYDROX/SIMETH 30 ML UNIT-DOSE CUP PO PRN (15:24)
[2024-03-10] MEDS ORDERED: IBUPROFEN 600 MG TABLET (FP) PO PRN (15:24)
[2024-03-10] MEDS ORDERED: HYDROCORTISONE 1% TOPICAL OINT 30 GM TUBE TP PRN (15:28)
[2024-03-10] MEDS ORDERED: chlordiazePOXIDE HCL 25 MG CAPSULE ONE (18:22)
[2024-03-10] MEDS: chlordiazePOXIDE HCL 25 MG CAPSULE PO SCH (18:25)
[2024-03-10] MEDS: chlordiazePOXIDE HCL 25 MG CAPSULE PO PRN (18:27)
[2024-03-10] MEDS: PRENATAL VITAMINS W/ FOLIC ACID TABLET (FP) PO SCH (19:23)
[2024-03-10] MEDS: hydrOXYzine PAMOATE 25 MG CAPSULE (FP) PO PRN (19:23)
[2024-03-10] MEDS: METHOCARBAMOL 500 MG TABLET PO PRN (19:23)
[2024-03-10] MEDS: QUEtiapine FUMARATE 50 MG TABLET PO ONE (22:06)
[2024-03-10] MEDS: MELATONIN 5 MG TABLETS PO SCH (22:06)
[2024-03-10] MEDS: THIAMINE 100 MG TABLET PO SCH (22:06)
[2024-03-11 09:47] VITALS: RESP 18
[2024-03-11 11:14] LABS: CHLORIDE 103 mmol/L (98-107); SODIUM 140 mmol/L (136-145)
[2024-03-11 11:18] LABS: HEMATOCRIT 39.2 % (35.4-49); HEMOGLOBIN 13.2 GM/dL (11.7-16.9); MCH 29.5 pg (25.7-33.7); MCHC 33.7 g/dl (32.0-35.9); MEAN CELL VOLUME 87.5 fl (80-96); MEAN PLT VOLUME 8.1 fl (7.5-11.1); PLATELET COUNT 280 10^3/uL (134-434); RBC 4.47 M/mm3 (4.00-5.60); WHITE BLOOD COUNT 6.8 K/mm3 (4.0-10.0)
[2024-03-11 11:19] LABS: ALBUMIN 3.2 g/dl (3.4-5.0); ANION GAP 6 mmol/L (4-13); BLOOD UREA NITROGEN 7.7 mg/dL (7-18); CALCIUM 8.9 mg/dL (8.5-10.1); CO2 31 mmol/L (21-32)
[2024-03-11 11:20] LABS: GLUCOSE,RANDOM 94 mg/dL (74-106)
[2024-03-11 11:23] LABS: CREATININE 0.6 mg/dL (0.55-1.3); SGOT/AST 22 U/L (15-37)
[2024-03-11 11:24] LABS: BILIRUBIN,TOTAL 0.6 mg/dL (0.2-1); TOT PROT 7.2 g/dl (6.4-8.2)
[2024-03-11 11:25] LABS: ALK PHOS 126 U/L (45-117)
[2024-03-11 11:34] LABS: SGPT/ALT 18 U/L (13-61)
[2024-03-11 13:26] VITALS: BP 133/91; PULSE 105; TEMP 97.1
[2024-03-12] MEDS ORDERED: chlordiazePOXIDE HCL 25 MG CAPSULE PO SCH (05:00)
[2024-03-13] MEDS ORDERED: chlordiazePOXIDE HCL 10 MG CAPSULE PO PRN
[2024-03-13] MEDS ORDERED: chlordiazePOXIDE HCL 10 MG CAPSULE PO SCH (05:00)
[2024-03-14] MEDS ORDERED: chlordiazePOXIDE HCL 10 MG CAPSULE PO SCH (05:00)
[2024-03-15] MEDS ORDERED: chlordiazePOXIDE HCL 10 MG CAPSULE PO ONE (05:00)
== END 2024-03-11 16:11 | disposition left against medical advice (07) | DRG 770 ==
LOC: YASAS 13:13 → Y3N 18:12
PROVIDERS: ADMIT Allergy & Immunology; ATTEND Surgery
PROC: HZ2ZZZZ Detoxification Services for Substance Abuse Treatment (ICD-10-PCS; principal; 2024-03-10)
DX: F10.230 Alcohol dependence with withdrawal, uncomplicated (principal); F17.210 Nicotine dependence, cigarettes, uncomplicated; F10.282 Alcohol dependence with alcohol-induced sleep disorder; F10.24 Alcohol dependence with alcohol-induced mood disorder; E72.20 Disorder of urea cycle metabolism, unspecified; L30.9 Dermatitis, unspecified; Z86.59 Personal history of other mental and behavioral disorders; Z59.02 Unsheltered homelessness
CPT/HCPCS: 36415; 80053; 80305; 80307; 82140; 85027; 86780; 93005; 93010

== ENCOUNTER 2024-03-22 16:54 | Inpatient (IN) | payer OTHER ==
[2024-03-22 18:10] VITALS: BMI 23.0
[2024-03-22] MEDS ORDERED: chlordiazePOXIDE HCL 25 MG CAPSULE PO PRN (19:18)
[2024-03-22] MEDS ORDERED: NICOTINE POLACRILEX 2 MG LOZENGE BC PRN (19:21)
[2024-03-22] MEDS ORDERED: MAGNESIUM HYDROX 2400MG/30ML ORAL SUSPENSION 30 ML CUP PO PRN (19:21)
[2024-03-22] MEDS ORDERED: IBUPROFEN 600 MG TABLET (FP) PO PRN (19:21)
[2024-03-22] MEDS ORDERED: BENZONATATE 200 MG CAPSULE PO PRN (19:21)
[2024-03-22] MEDS ORDERED: POLYETHYLENE GLYCOL (HEALTHYLAX) 3350 17 GM PACKET PO PRN (19:21)
[2024-03-22] MEDS ORDERED: BISMUTH SUBSALICYLATE 524 MG/30 ML PO PRN (19:21)
[2024-03-22] MEDS ORDERED: BENZOCAINE/MENTHOL (CHLORASEPTIC ) LOZENGE MM PRN (19:21)
[2024-03-22] MEDS ORDERED: IBUPROFEN 400 MG TABLET (FP) PO PRN (19:21)
[2024-03-22] MEDS ORDERED: ACETAMINOPHEN 325 MG TABLET (FP) PO PRN (19:21)
[2024-03-22] MEDS ORDERED: NICOTINE POLACRILEX 2 MG GUM BUC PRN (19:21)
[2024-03-22] MEDS ORDERED: MAG HYDROX/AL HYDROX/SIMETH 30 ML UNIT-DOSE CUP PO PRN (19:21)
[2024-03-22] MEDS ORDERED: DICYCLOMINE HCL 10 MG CAPSULE PO PRN (19:21)
[2024-03-22] MEDS ORDERED: LOPERAMIDE HCL 2 MG CAPSULE PO PRN (19:21)
[2024-03-22] MEDS ORDERED: guaiFENesin 600 MG TABLET.ER (FP) PO PRN (19:21)
[2024-03-22] MEDS: THIAMINE 100 MG TABLET PO SCH (22:40)
[2024-03-22] MEDS: MELATONIN 5 MG TABLETS PO SCH (22:40)
[2024-03-23] MEDS: chlordiazePOXIDE HCL 25 MG CAPSULE PO SCH (05:32)
[2024-03-23] MEDS: PRENATAL VITAMINS W/ FOLIC ACID TABLET (FP) PO SCH (10:22)
[2024-03-23] MEDS: ONDANSETRON *ODT* 4 MG TABLET SL PRN (10:23)
[2024-03-23] MEDS: cloNIDine HCL 0.1 MG TABLET PO PRN (14:23)
[2024-03-23] MEDS: METHOCARBAMOL 500 MG TABLET PO PRN (22:25)
[2024-03-24] MEDS ORDERED: chlordiazePOXIDE HCL 10 MG CAPSULE PO PRN
[2024-03-24] MEDS: chlordiazePOXIDE HCL 25 MG CAPSULE PO SCH (06:00)
[2024-03-25] MEDS: chlordiazePOXIDE HCL 10 MG CAPSULE PO SCH (05:42)
[2024-03-25 07:23] VITALS: RESP 16
[2024-03-25 09:10] VITALS: BP 128/90; PULSE 99; TEMP 98
[2024-03-26] MEDS ORDERED: chlordiazePOXIDE HCL 10 MG CAPSULE PO SCH (05:00)
[2024-03-27] MEDS ORDERED: chlordiazePOXIDE HCL 10 MG CAPSULE PO ONE (05:00)
== END 2024-03-25 13:34 | disposition home or self-care (01) | DRG 775 ==
LOC: YASAS 16:54 → Y3N 19:38
PROVIDERS: ADMIT Allergy & Immunology; ATTEND Surgery
PROC: HZ2ZZZZ Detoxification Services for Substance Abuse Treatment (ICD-10-PCS; principal; 2024-03-22)
DX: F10.230 Alcohol dependence with withdrawal, uncomplicated (principal); F17.210 Nicotine dependence, cigarettes, uncomplicated; F32.A Depression, unspecified; L21.9 Seborrheic dermatitis, unspecified
CPT/HCPCS: 80305; Q0162

== ENCOUNTER 2024-04-05 14:27 | Inpatient (IN) | payer OTHER ==
[2024-04-05 15:06] VITALS: BMI 23.3
[2024-04-05] MEDS ORDERED: DICYCLOMINE HCL 10 MG CAPSULE PO PRN (15:30)
[2024-04-05] MEDS ORDERED: ONDANSETRON *ODT* 4 MG TABLET SL PRN (15:30)
[2024-04-05] MEDS ORDERED: MAGNESIUM HYDROX 2400MG/30ML ORAL SUSPENSION 30 ML CUP PO PRN (15:30)
[2024-04-05] MEDS ORDERED: IBUPROFEN 600 MG TABLET (FP) PO PRN (15:30)
[2024-04-05] MEDS ORDERED: NICOTINE POLACRILEX 2 MG LOZENGE BC PRN (15:30)
[2024-04-05] MEDS ORDERED: MAG HYDROX/AL HYDROX/SIMETH 30 ML UNIT-DOSE CUP PO PRN (15:30)
[2024-04-05] MEDS ORDERED: BISMUTH SUBSALICYLATE 524 MG/30 ML PO PRN (15:30)
[2024-04-05] MEDS ORDERED: guaiFENesin 600 MG TABLET.ER (FP) PO PRN (15:30)
[2024-04-05] MEDS ORDERED: NICOTINE POLACRILEX 2 MG GUM BUC PRN (15:30)
[2024-04-05] MEDS ORDERED: IBUPROFEN 400 MG TABLET (FP) PO PRN (15:30)
[2024-04-05] MEDS ORDERED: BENZONATATE 200 MG CAPSULE PO PRN (15:30)
[2024-04-05] MEDS ORDERED: ACETAMINOPHEN 325 MG TABLET (FP) PO PRN (15:30)
[2024-04-05] MEDS ORDERED: BENZOCAINE/MENTHOL (CHLORASEPTIC ) LOZENGE MM PRN (15:30)
[2024-04-05] MEDS ORDERED: POLYETHYLENE GLYCOL (HEALTHYLAX) 3350 17 GM PACKET PO PRN (15:30)
[2024-04-05] MEDS ORDERED: P-EPHED 60MG/TRIPROLIDI 2.5MG TABLET PO PRN (15:30)
[2024-04-05] MEDS ORDERED: LOPERAMIDE HCL 2 MG CAPSULE PO PRN (15:30)
[2024-04-05] MEDS: chlordiazePOXIDE HCL 25 MG CAPSULE PO PRN (17:23)
[2024-04-05] MEDS: THIAMINE 100 MG TABLET PO SCH (22:34)
[2024-04-05] MEDS: QUEtiapine FUMARATE 50 MG TABLET PO ONE (22:35)
[2024-04-05] MEDS: chlordiazePOXIDE HCL 25 MG CAPSULE PO SCH (22:35)
[2024-04-05] MEDS: MELATONIN 5 MG TABLETS PO SCH (22:48)
[2024-04-06] MEDS: chlordiazePOXIDE HCL 25 MG CAPSULE PO SCH (05:19)
[2024-04-06] MEDS: METHOCARBAMOL 500 MG TABLET PO PRN (05:22)
[2024-04-06] MEDS: PRENATAL VITAMINS W/ FOLIC ACID TABLET (FP) PO SCH (10:08)
[2024-04-06] MEDS: FOLIC ACID 1 MG TABLET (FP) PO SCH (10:08)
[2024-04-06] MEDS: ASPIRIN 81 MG CHEWABLE TABLETS PO SCH (10:08)
[2024-04-06] MEDS: QUEtiapine FUMARATE 50 MG TABLET PO SCH (22:29)
[2024-04-07] MEDS: chlordiazePOXIDE HCL 10 MG CAPSULE PO SCH (05:27)
[2024-04-07 11:43] LABS: HEMATOCRIT 39.4 % (35.4-49); HEMOGLOBIN 13.3 GM/dL (11.7-16.9); MCHC 33.6 g/dl (32.0-35.9); MEAN CELL VOLUME 89.2 fl (80-96); MEAN PLT VOLUME 8.5 fl (7.5-11.1); PLATELET COUNT 234 10^3/uL (134-434); RBC 4.42 M/mm3 (4.00-5.60); RDW 15.9 % (11.9-15.9); WHITE BLOOD COUNT 7.1 K/mm3 (4.0-10.0)
[2024-04-07 11:52] LABS: ALBUMIN 3.1 g/dl (3.4-5.0); BLOOD UREA NITROGEN 9.7 mg/dL (7-18); CALCIUM 9.3 mg/dL (8.5-10.1)
[2024-04-07 11:55] LABS: CREATININE 0.7 mg/dL (0.55-1.3)
[2024-04-07 11:57] LABS: BILIRUBIN,TOTAL 0.7 mg/dL (0.2-1)
[2024-04-08] MEDS ORDERED: chlordiazePOXIDE HCL 10 MG CAPSULE PO PRN
[2024-04-08] MEDS: chlordiazePOXIDE HCL 10 MG CAPSULE PO SCH (05:21)
[2024-04-08 12:49] VITALS: BP 124/85; PULSE 99; RESP 20; TEMP 98.7
[2024-04-09] MEDS ORDERED: chlordiazePOXIDE HCL 10 MG CAPSULE PO ONE (05:00)
== END 2024-04-08 12:50 | disposition home or self-care (01) | DRG 774 ==
LOC: YASAS 14:27 → Y6N 15:57
PROVIDERS: ADMIT Allergy & Immunology; ATTEND Surgery
PROC: HZ2ZZZZ Detoxification Services for Substance Abuse Treatment (ICD-10-PCS; principal; 2024-04-05)
DX: F10.230 Alcohol dependence with withdrawal, uncomplicated (principal); F10.220 Alcohol dependence with intoxication, uncomplicated; F10.282 Alcohol dependence with alcohol-induced sleep disorder; F14.20 Cocaine dependence, uncomplicated; F17.210 Nicotine dependence, cigarettes, uncomplicated; F32.A Depression, unspecified; R00.0 Tachycardia, unspecified; L30.9 Dermatitis, unspecified; Z56.0 Unemployment, unspecified; Z59.00 Homelessness unspecified
CPT/HCPCS: 36415; 80053; 80305; 80307; 85027; 86780

== ENCOUNTER 2024-04-17 16:33 | Inpatient (IN) | payer OTHER ==
[2024-04-17 17:38] VITALS: BMI 23.6
[2024-04-17] MEDS ORDERED: MAGNESIUM HYDROX 2400MG/30ML ORAL SUSPENSION 30 ML CUP PO PRN (18:02)
[2024-04-17] MEDS ORDERED: guaiFENesin 600 MG TABLET.ER (FP) PO PRN (18:02)
[2024-04-17] MEDS ORDERED: ACETAMINOPHEN 325 MG TABLET (FP) PO PRN (18:02)
[2024-04-17] MEDS ORDERED: IBUPROFEN 400 MG TABLET (FP) PO PRN (18:02)
[2024-04-17] MEDS ORDERED: ONDANSETRON *ODT* 4 MG TABLET SL PRN (18:02)
[2024-04-17] MEDS ORDERED: BENZOCAINE/MENTHOL (CHLORASEPTIC ) LOZENGE MM PRN (18:02)
[2024-04-17] MEDS ORDERED: NICOTINE POLACRILEX 2 MG GUM BUC PRN (18:02)
[2024-04-17] MEDS ORDERED: P-EPHED 60MG/TRIPROLIDI 2.5MG TABLET PO PRN (18:02)
[2024-04-17] MEDS ORDERED: BISMUTH SUBSALICYLATE 524 MG/30 ML PO PRN (18:02)
[2024-04-17] MEDS ORDERED: IBUPROFEN 600 MG TABLET (FP) PO PRN (18:02)
[2024-04-17] MEDS ORDERED: MAG HYDROX/AL HYDROX/SIMETH 30 ML UNIT-DOSE CUP PO PRN (18:02)
[2024-04-17] MEDS ORDERED: NICOTINE POLACRILEX 2 MG LOZENGE BC PRN (18:02)
[2024-04-17] MEDS ORDERED: hydrOXYzine PAMOATE 25 MG CAPSULE (FP) PO PRN (18:02)
[2024-04-17] MEDS ORDERED: LOPERAMIDE HCL 2 MG CAPSULE PO PRN (18:02)
[2024-04-17] MEDS ORDERED: METHOCARBAMOL 500 MG TABLET PO PRN (18:02)
[2024-04-17] MEDS ORDERED: BENZONATATE 200 MG CAPSULE PO PRN (18:02)
[2024-04-17] MEDS ORDERED: DICYCLOMINE HCL 10 MG CAPSULE PO PRN (18:02)
[2024-04-17] MEDS ORDERED: POLYETHYLENE GLYCOL (HEALTHYLAX) 3350 17 GM PACKET PO PRN (18:02)
[2024-04-17] MEDS: QUEtiapine FUMARATE 50 MG TABLET PO ONE (22:17)
[2024-04-17] MEDS: THIAMINE 100 MG TABLET PO SCH (22:17)
[2024-04-17] MEDS: MELATONIN 5 MG TABLETS PO SCH (22:17)
[2024-04-18] MEDS ORDERED: chlordiazePOXIDE HCL 25 MG CAPSULE PO PRN (09:43)
[2024-04-18] MEDS: FOLIC ACID 1 MG TABLET (FP) PO SCH (10:32)
[2024-04-18] MEDS: PRENATAL VITAMINS W/ FOLIC ACID TABLET (FP) PO SCH (10:32)
[2024-04-18] MEDS: ASPIRIN 81 MG CHEWABLE TABLETS PO SCH (10:32)
[2024-04-18] MEDS: chlordiazePOXIDE HCL 25 MG CAPSULE PO SCH (10:33)
[2024-04-18] MEDS: QUEtiapine FUMARATE 50 MG TABLET PO SCH (22:15)
[2024-04-19 08:49] LABS: HEMATOCRIT 38.8 % (35.4-49); HEMOGLOBIN 13.2 GM/dL (11.7-16.9); MCH 30.4 pg (25.7-33.7); MEAN CELL VOLUME 89.4 fl (80-96); MEAN PLT VOLUME 8.1 fl (7.5-11.1); PLATELET COUNT 256 10^3/uL (134-434); RBC 4.33 M/mm3 (4.00-5.60); RDW 15.5 % (11.9-15.9); WHITE BLOOD COUNT 7.1 K/mm3 (4.0-10.0)
[2024-04-19 08:54] LABS: POTASSIUM 3.6 mmol/L (3.5-5.1)
[2024-04-19 09:03] LABS: CALCIUM 9.3 mg/dL (8.5-10.1)
[2024-04-19 09:07] LABS: CREATININE 0.6 mg/dL (0.55-1.3)
[2024-04-19 09:08] LABS: BILIRUBIN,TOTAL 0.4 mg/dL (0.2-1)
[2024-04-19] MEDS: SELENIUM SULFIDE 2.25% 180 ML SHAMPOO TP SCH (16:16)
[2024-04-20] MEDS: chlordiazePOXIDE HCL 25 MG CAPSULE PO SCH (06:19)
[2024-04-21] MEDS ORDERED: chlordiazePOXIDE HCL 10 MG CAPSULE PO PRN
[2024-04-21] MEDS: chlordiazePOXIDE HCL 10 MG CAPSULE PO SCH (05:56)
[2024-04-21] MEDS ORDERED: MELATONIN 5 MG TABLETS PO PRN (11:58)
[2024-04-22] MEDS: chlordiazePOXIDE HCL 10 MG CAPSULE PO SCH (06:16)
[2024-04-22 09:17] VITALS: BP 133/73; PULSE 80; RESP 18; TEMP 97.6
[2024-04-23] MEDS ORDERED: chlordiazePOXIDE HCL 10 MG CAPSULE PO ONE (05:00)
== END 2024-04-22 13:11 | disposition home or self-care (01) | DRG 775 ==
LOC: YASAS 16:33 → Y3N 19:54
PROVIDERS: ADMIT Allergy & Immunology; ATTEND Psychiatry & Neurology Pain Medicine
PROC: HZ2ZZZZ Detoxification Services for Substance Abuse Treatment (ICD-10-PCS; principal; 2024-04-17)
DX: F10.230 Alcohol dependence with withdrawal, uncomplicated (principal); F10.220 Alcohol dependence with intoxication, uncomplicated; F10.282 Alcohol dependence with alcohol-induced sleep disorder; F10.280 Alcohol dependence with alcohol-induced anxiety disorder; F17.210 Nicotine dependence, cigarettes, uncomplicated; F32.A Depression, unspecified; B35.1 Tinea unguium; G47.00 Insomnia, unspecified; L30.9 Dermatitis, unspecified; R01.1 Cardiac murmur, unspecified; Z56.0 Unemployment, unspecified; Z59.00 Homelessness unspecified
CPT/HCPCS: 36415; 80053; 80305; 80307; 85027; 86780